=== PATIENT | male | born 1950 | race African-American/Black ===

== ENCOUNTER 2018-02-17 11:58 | Emergency (ER) | payer MEDICARE, OTHER ==
[2018-02-17 13:46] LABS: ADD MAN DIFF? NO
[2018-02-17 13:50] LABS: BASOPHILS % 0.4 % (0.0-2.0); EOSINOPHILS # 0.3 10^3/ul (0.0-0.5); EOSINOPHILS % 4.5 % (0.0-7.0); HEMOGLOBIN 11.3 g/dl (14.0-18.0); LYMPHOCYTES # 1.9 10^3/ul (0.8-2.9); LYMPHOCYTES % 26.4 % (15.0-51.0); MEAN CORPUSCULAR HEMOGLOBIN 29.4 pg (29.0-33.0); MEAN CORPUSCULAR HGB CONC 31.4 g/dl (32.0-37.0); MEAN CORPUSCULAR VOLUME 93.8 fl (82.0-101.0); MEAN PLATELET VOLUME 10.2 fl (7.4-10.4); MONOCYTE # 0.7 10^3/ul (0.3-0.9); MONOCYTES % 10.3 % (0.0-11.0); NEUTROPHIL # 4.1 10^3/ul (1.6-7.5); PLATELET COUNT 290 10^3/UL (140-415); RED BLOOD COUNT 3.84 10^6/ul (4.70-6.10); RED CELL DISTRIBUTION WIDTH 14.7 % (11.5-14.5)
[2018-02-17 13:50] LABS: WHITE BLOOD COUNT 7.1 10^3/ul (4.8-10.8)
[2018-02-17] MEDS: SOD CHLORIDE 0.9% 1,000 ML IV (13:50)
[2018-02-17 14:07] LABS: ALANINE AMINOTRANSFERASE 36 IU/L (13-69); ALBUMIN 3.2 g/dl (3.3-4.9); ALBUMIN/GLOBULIN RATIO 0.84; ALKALINE PHOSPHATASE 79 IU/L (42-121); ANION GAP 11 (8-16); ASPARTATE AMINO TRANSFERASE 55 IU/L (15-46); BILIRUBIN,INDIRECT 0.2 mg/dl (0-1.1); BILIRUBIN,TOTAL 0.2 mg/dl (0.2-1.3); BLOOD UREA NITROGEN 18 mg/dl (7-20); CALCIUM 9.4 mg/dl (8.4-10.2); CARBON DIOXIDE 30 mmol/L (21-31); CHLORIDE 105 mmol/L (97-110); CREATININE 0.69 mg/dl (0.61-1.24); GLUCOSE 133 mg/dl (70-220); POTASSIUM 3.6 mmol/L (3.5-5.1); SODIUM 142 mmol/L (135-144)
[2018-02-17 14:10] LABS: INR 0.94; PROTIME 12.7 Sec (11.9-14.9)
[2018-02-17 14:11] LABS: PARTIAL THROMBOPLASTIN TIME 28.7 Sec (23.0-35.0)
== END 2018-02-17 18:18 | disposition home or self-care (01) ==
LOC: E/R 11:58
DX: M62.838 Other muscle spasm (principal); R40.2142 Coma scale, eyes open, spontaneous, at arrival to emergency department; R40.2362 Coma scale, best motor response, obeys commands, at arrival to emergency department; R40.2252 Coma scale, best verbal response, oriented, at arrival to emergency department; I10 Essential (primary) hypertension; E11.9 Type 2 diabetes mellitus without complications; F17.210 Nicotine dependence, cigarettes, uncomplicated; R51 Headache; Z79.4 Long term (current) use of insulin
CPT/HCPCS: 36415; 70450; 80053; 82962; 85025; 85610; 85730; 93005; 99285-25

== ENCOUNTER 2018-03-29 12:56 | Inpatient (IN) | payer MEDICARE, OTHER ==
[2018-03-29] MEDS: ALBUTEROL 0.5% (NEB) 2.5 MG/0.5 ML AMP INH (13:12)
[2018-03-29] MEDS: IPRATROPIUM (NEB) 0.5 MG/2.5 ML AMP INH (13:13)
[2018-03-29 13:14] LABS: ADD MAN DIFF? NO
[2018-03-29 13:23] LABS: ABNORMAL IP MESSAGE 1; BASOPHILS % 0.3 % (0.0-2.0); EOSINOPHILS # 0.1 10^3/ul (0.0-0.5); EOSINOPHILS % 0.9 % (0.0-7.0); HEMATOCRIT 28.9 % (42.0-52.0); HEMOGLOBIN 9.5 g/dl (14.0-18.0); LYMPHOCYTES # 1.3 10^3/ul (0.8-2.9); LYMPHOCYTES % 13.7 % (15.0-51.0); MEAN CORPUSCULAR HEMOGLOBIN 28.8 pg (29.0-33.0); MEAN CORPUSCULAR HGB CONC 32.9 g/dl (32.0-37.0); MEAN CORPUSCULAR VOLUME 87.6 fl (82.0-101.0); MEAN PLATELET VOLUME 9.8 fl (7.4-10.4); MONOCYTE # 1.8 10^3/ul (0.3-0.9); NEUTROPHIL # 6.3 10^3/ul (1.6-7.5); PLATELET COUNT 419 10^3/UL (140-415); POSITIVE DIFF @See below; RED CELL DISTRIBUTION WIDTH 14.1 % (11.5-14.5)
[2018-03-29 13:23] LABS: WHITE BLOOD COUNT 9.8 10^3/ul (4.8-10.8)
[2018-03-29] MEDS: SOD CHLORIDE 0.9% 1,000 ML IV ×2 (13:24→16:53)
[2018-03-29] MEDS: ASPIRIN 81 MG TAB PO (13:24)
[2018-03-29] MEDS: METHYLPREDNISOLONE 125 MG INJ IV ×2 (13:24→21:29)
[2018-03-29] MEDS: NALOXONE 2 MG SYG IV (13:24)
[2018-03-29] MEDS ORDERED: ONDANSETRON 4 MG INJ (13:37)
[2018-03-29] MEDS: ONDANSETRON 4 MG INJ IV (13:39)
[2018-03-29 13:44] LABS: ALANINE AMINOTRANSFERASE 24 IU/L (13-69); ALBUMIN 3.5 g/dl (3.3-4.9); ALBUMIN/GLOBULIN RATIO 1.12; ALKALINE PHOSPHATASE 74 IU/L (42-121); ANION GAP 15 (5-13); ASPARTATE AMINO TRANSFERASE 31 IU/L (15-46); CALCIUM 8.9 mg/dl (8.4-10.2); CARBON DIOXIDE 32 mmol/L (21-31); CHLORIDE 89 mmol/L (97-110); CREATININE 6.41 mg/dl (0.61-1.24); Estimated GFR 11 mL/min (>60); GLUCOSE 186 mg/dl (70-220); LIPASE 65 U/L (23-300); POTASSIUM 4.3 mmol/L (3.5-5.1); SODIUM 136 mmol/L (135-144); TOTAL PROTEIN 6.6 g/dl (6.1-8.1)
[2018-03-29 13:56] LABS: B-TYPE NATRIURETIC PEPTIDE 7280 PG/ML (0-125); TROPONIN-I < 0.012 ng/ml (0.000-0.120)
[2018-03-29 13:58] LABS: BLOOD UREA NITROGEN 145 mg/dl (7-20)
[2018-03-29 14:00] LABS: ETHANOL < 10.0 mg/dl
[2018-03-29] MEDS: KETOROLAC 15 MG INJ IV (14:07)
[2018-03-29] MEDS ORDERED: NACL 0.9% 3 ML SYG IV (14:30)
[2018-03-29] MEDS ORDERED: HYDROmorphONE 0.5 MG/0.5 ML SYG IV (14:30)
[2018-03-29] MEDS ORDERED: ACETAMINOPHEN 325 MG TAB PO (14:30)
[2018-03-29 15:02] LABS: AADO2 Arterial 31.2 mmHg (7.0-24.0); Arterial Base Excess -0.3 mmol/L (-3.0-3); Arterial Blood Gas Oxygen Sat 93.3 mmHG (95.0-98.0); Arterial COHb 0.1 % (0.0-3.0); Arterial HCO3 23.3 mmol/L (22.0-26.0); Arterial MetHb 0.2 % (0.0-1.5); Arterial Total Hemglobin 10.6 g/dl (12.0-18.0); Arterial pCO2 34.4 mmhg (35-45); MODE ROOM AIR; Site Right Brachial
[2018-03-29 15:23] LABS: AMMONIA < 9 umol/l (9-30)
[2018-03-29 15:25] LABS: CREATINE KINASE < 20 IU/L (23-200)
[2018-03-29] MEDS ORDERED: LORAZEPAM 0.5 MG TAB PO (15:30)
[2018-03-29] MEDS ORDERED: GLUCOSE GEL 15 GRAM TUBE PO ×2 (16:00)
[2018-03-29] MEDS ORDERED: GLUCOSE GEL 15 GRAM TUBE BUCCAL (16:00)
[2018-03-29] MEDS ORDERED: GLUCAGON 1 MG INJ IM (16:00)
[2018-03-29] MEDS ORDERED: DEXTROSE 50% 50 ML SYRINGE IV ×2 (16:00)
[2018-03-29 18:03] LABS: ADD UMIC YES; UR ASCORBIC ACID NEGATIVE (NEGATIVE); UR BACTERIA FEW /HPF (NONE SEEN); UR BILIRUBIN (Dip) NEGATIVE (NEGATIVE); UR BLOOD (Dip) 1+ mg/dL (NEGATIVE); UR BUDDING YEAST FEW /HPF (NONE SEEN); UR CLARITY SLIGHTLY CLOUDY (CLEAR); UR COLOR YELLOW (YELLOW); UR GLUCOSE (Dip) 1+ mg/dL (NEGATIVE); UR KETONES (Dip) TRACE mg/dL (NEGATIVE); UR LEUKOCYTE ESTERASE (Dip) 2+ Leu/ul (NEGATIVE); UR NITRITE (Dip) NEGATIVE (NEGATIVE); UR RBC 3 /HPF (0-5); UR SPECIFIC GRAVITY (Dip) 1.011 (1.003-1.030); UR TOTAL PROTEIN (Dip) 1+ mg/dl (NEGATIVE); UR UROBILINOGEN (Dip) NEGATIVE (NEGATIVE); UR WBC 10 /HPF (0-5)
[2018-03-29] MEDS: INSULIN ASPART [NOVOLOG] 3 ML PEN SC ×2 (18:09→22:17)
[2018-03-29 18:37] LABS: SODIUM,URINE RANDOM 66 mmol/L (30-90)
[2018-03-29 18:37] LABS: CREATININE,URINE RANDOM 44.85 mg/dl (20-370)
[2018-03-29 18:39] LABS: AMPHETAMINE/METHAMPHETAMINE Negative (NEGATIVE); BARBITURATES Negative (NEGATIVE); BENZODIAZEPINES Negative (NEGATIVE); CANNABINOIDS Negative (NEGATIVE); COCAINE Negative (NEGATIVE)
[2018-03-29 18:42] LABS: OPIATES Positive (NEGATIVE)
[2018-03-29 19:11] LABS: ANION GAP 19 (5-13); CALCIUM 8.7 mg/dl (8.4-10.2); CARBON DIOXIDE 27 mmol/L (21-31); CHLORIDE 91 mmol/L (97-110); Estimated GFR 13 mL/min (>60); GLUCOSE 224 mg/dl (70-220); POTASSIUM 4.4 mmol/L (3.5-5.1); SODIUM 137 mmol/L (135-144)
[2018-03-29 19:26] LABS: BLOOD UREA NITROGEN 139 mg/dl (7-20)
[2018-03-29] MEDS: ALBUTEROL/IPRATROPIUM (NEB) 3 ML AMP HHN (20:29)
[2018-03-29] MEDS: BUDESONIDE (NEB) 0.5MG/2ML AMP HHN (20:29)
[2018-03-29] MEDS: TAMSULOSIN (SR) 0.4 MG CAP PO (21:30)
[2018-03-30] MEDS: SOD CHLORIDE 0.9% 1,000 ML IV ×4 (01:04→20:40)
[2018-03-30] MEDS: ACCU-CHEK XX (02:00)
[2018-03-30 06:07] LABS: ADD MAN DIFF? NO
[2018-03-30 06:19] LABS: BASOPHILS % 0.3 % (0.0-2.0); HEMATOCRIT 28.1 % (42.0-52.0); HEMOGLOBIN 9.2 g/dl (14.0-18.0); LYMPHOCYTES # 0.6 10^3/ul (0.8-2.9); LYMPHOCYTES % 5.8 % (15.0-51.0); MEAN CORPUSCULAR HEMOGLOBIN 28.3 pg (29.0-33.0); MEAN CORPUSCULAR HGB CONC 32.7 g/dl (32.0-37.0); MEAN CORPUSCULAR VOLUME 86.5 fl (82.0-101.0); MEAN PLATELET VOLUME 10.3 fl (7.4-10.4); MONOCYTE # 0.1 10^3/ul (0.3-0.9); MONOCYTES % 1.3 % (0.0-11.0); NEUTROPHIL # 9.7 10^3/ul (1.6-7.5); NEUTROPHILS % 87.9 % (39.0-77.0); PLATELET COUNT 432 10^3/UL (140-415); POSITIVE DIFF @See below; RED BLOOD COUNT 3.25 10^6/ul (4.70-6.10)
[2018-03-30 07:27] LABS: ALANINE AMINOTRANSFERASE 18 IU/L (13-69); ALBUMIN 3.3 g/dl (3.3-4.9); ALBUMIN/GLOBULIN RATIO 1.22; ALKALINE PHOSPHATASE 70 IU/L (42-121); ANION GAP 14 (5-13); ASPARTATE AMINO TRANSFERASE 25 IU/L (15-46); CALCIUM 8.8 mg/dl (8.4-10.2); CARBON DIOXIDE 27 mmol/L (21-31); CHLORIDE 96 mmol/L (97-110); CHOL/HDL RATIO 6.1 RATIO; CHOLESTEROL 153 mg/dl (100-200); CREATININE 4.12 mg/dl (0.61-1.24); Estimated GFR 18 mL/min (>60); GLUCOSE 291 mg/dl (70-220); HDL CHOLESTEROL 25 mg/dl (30-78); LDL CHOLESTEROL,CALCULATED 101 mg/dl; PHOSPHORUS 4.7 mg/dl (2.5-4.9); POTASSIUM 3.9 mmol/L (3.5-5.1); SODIUM 137 mmol/L (135-144); TRIGLYCERIDES 136 mg/dl (0-149)
[2018-03-30 07:40] LABS: BLOOD UREA NITROGEN 124 mg/dl (7-20)
[2018-03-30] MEDS: BUDESONIDE (NEB) 0.5MG/2ML AMP HHN ×2 (07:43→20:00)
[2018-03-30] MEDS: ALBUTEROL/IPRATROPIUM (NEB) 3 ML AMP HHN ×3 (07:43→20:00)
[2018-03-30] MEDS: INSULIN ASPART [NOVOLOG] 3 ML PEN SC ×5 (07:44→20:51)
[2018-03-30 07:46] LABS: THYROID STIMULATING HORMONE 0.118 MIU/L (0.465-4.680)
[2018-03-30] MEDS: SOD CHLORIDE 0.9% 100 ML (07:46)
[2018-03-30] MEDS: IOHEXOL 300MG/ML 150 ML BTL (07:47)
[2018-03-30] MEDS: CEFTRIAXONE 1 GM/50 ML (PMX) 50 ML IVPB (08:03)
[2018-03-30] MEDS: METHYLPREDNISOLONE 125 MG INJ IV (08:04)
[2018-03-30] MEDS: ASPIRIN 81 MG TAB PO (08:04)
[2018-03-30] MEDS: INSULIN GLARGINE [LANTus] (100 UNITS/ML) SYG SC (08:46)
[2018-03-30] MEDS: ATORVASTATIN 80 MG TAB PO (20:47)
[2018-03-30] MEDS: TAMSULOSIN (SR) 0.4 MG CAP PO (20:47)
[2018-03-31] MEDS: ACCU-CHEK XX (01:47)
[2018-03-31] MEDS: INSULIN ASPART [NOVOLOG] 3 ML PEN SC ×8 (02:02→21:18)
[2018-03-31] MEDS: ONDANSETRON 4 MG INJ IV ×2 (05:13→06:31)
[2018-03-31 05:58] LABS: WHITE BLOOD COUNT 16.2 10^3/ul (4.8-10.8)
[2018-03-31 05:58] LABS: ABNORMAL IP MESSAGE 1; HEMATOCRIT 19.8 % (42.0-52.0); MEAN CORPUSCULAR HEMOGLOBIN 28.3 pg (29.0-33.0); MEAN CORPUSCULAR HGB CONC 31.8 g/dl (32.0-37.0); MEAN CORPUSCULAR VOLUME 88.8 fl (82.0-101.0); MEAN PLATELET VOLUME 10.1 fl (7.4-10.4); PLATELET COUNT 409 10^3/UL (140-415); POSITIVE DIFF @See below; RED BLOOD COUNT 2.23 10^6/ul (4.70-6.10); RED CELL DISTRIBUTION WIDTH 14.1 % (11.5-14.5)
[2018-03-31] MEDS: PANTOPRAZOLE (EC) 40 MG TAB PO (06:24)
[2018-03-31] MEDS ORDERED: PANTOPRAZOLE 40 MG INJ IV (06:30)
[2018-03-31 06:34] LABS: ADD MAN DIFF? YES; HEMOGLOBIN 6.3 g/dl (14.0-18.0)
[2018-03-31 06:35] LABS: PATH REVIEW? YES
[2018-03-31] MEDS: SOD CHLORIDE 0.9% 1,000 ML IV ×3 (07:04→22:24)
[2018-03-31 07:13] LABS: ANION GAP 9 (5-13); BLOOD UREA NITROGEN 112 mg/dl (7-20); CALCIUM 8.3 mg/dl (8.4-10.2); CARBON DIOXIDE 31 mmol/L (21-31); CHLORIDE 99 mmol/L (97-110); CREATININE 2.28 mg/dl (0.61-1.24); Estimated GFR 35 mL/min (>60); GLUCOSE 275 mg/dl (70-220); MAGNESIUM 1.5 mg/dl (1.7-2.5); PHOSPHORUS 2.2 mg/dl (2.5-4.9); POTASSIUM 3.5 mmol/L (3.5-5.1); SODIUM 139 mmol/L (135-144)
[2018-03-31 07:13] LABS: FREE T4 (FREE THYROXINE) 0.94 ng/dl (0.78-2.44)
[2018-03-31] MEDS: PANTOPRAZOLE IV 80 MG in SOD CHLORIDE 0.9% 100 ML IV ×3 (08:31→17:00)
[2018-03-31] MEDS: CEFTRIAXONE 1 GM/50 ML (PMX) 50 ML IVPB (08:45)
[2018-03-31 08:48] LABS: ANISOCYTOSIS 1+ (0-0); BAND NEUTROPHILS #M 1.6 10^3/ul (0.0-0.6); BAND NEUTROPHILS % (M) 10 % (0-4); GIANT THROMBO% (M) 3 % (0-0); LYMPHOCYTES #M 1.7 10^3/ul (0.8-2.9); LYMPHOCYTES % (M) 11 % (15-51); METAMYELOCYTES #M 0.1 10^3/ul (0.0-0.0); METAMYELOCYTES %M 1 % (0-0); MICROCYTOSIS 1+ (0-0); MONOCYTE #M 1.4 10^3/ul (0.3-0.9); MONOCYTES % (M) 9 % (0-11); MYELOCYTES #M 0.1 10^3/ul (0.0-0.0); MYELOCYTES % (M) 1 % (0-0); OVALOCYTES 1+ (0-0); PLATELET ESTIMATE NORMAL; POLYCHROMASIA 1+ (0-0); SEG NEUT #M 11.3 10^3/ul (1.6-7.5); SEGMENTED NEUTROPHILS (M) % 68 % (39-77); SMUDGE%M 27 % (0-0)
[2018-03-31] MEDS: SOD CHLORIDE 0.9% 250 ML IV* (08:51)
[2018-03-31] MEDS ORDERED: OCTREOTIDE 50 MCG INJ SC (09:00)
[2018-03-31] MEDS: predniSONE 20 MG TAB PO (09:00)
[2018-03-31] MEDS: MAGNESIUM SULFATE 2 GM/50 ML 50 ML IVPB (09:00)
[2018-03-31] MEDS: INSULIN GLARGINE [LANTus] (100 UNITS/ML) SYG SC (10:22)
[2018-03-31] MEDS: OCTREOTIDE 1 MG in DEXTROSE 5% 95 ML IV (10:47)
[2018-03-31] MEDS: LIDOCAINE 1% (MPF) 5 ML VIAL SC (11:00)
[2018-03-31] MEDS: FLUCONAZOLE 200 MG (PMX) 100 ML IVPB (13:30)
[2018-03-31 15:32] LABS: CREATININE, RANDOM URINE 48 mg/dL (20-320); MICROALBUMIN 4.3 mg/dL; MICROALBUMIN/CREATININE RATIO 90 (<30)
[2018-03-31] MEDS: PROPOFOL 40 ML (16:44)
[2018-03-31 18:35] LABS: IMMEDIATE SPIN CROSSMATCH 1 3
[2018-03-31 19:51] LABS: INR 1.13; PROTIME 14.7 Sec (11.9-14.9); PT RATIO 1.1
[2018-03-31] MEDS: BUDESONIDE (NEB) 0.5MG/2ML AMP HHN (20:04)
[2018-03-31] MEDS: ALBUTEROL/IPRATROPIUM (NEB) 3 ML AMP HHN (20:05)
[2018-03-31] MEDS: ATORVASTATIN 80 MG TAB PO (20:42)
[2018-03-31] MEDS: TAMSULOSIN (SR) 0.4 MG CAP PO (20:42)
[2018-03-31] MEDS: CEFEPIME 1GM/50 ML (PMX) 50 ML IVPB (20:42)
[2018-03-31] MEDS ORDERED: CEFEPIME 1GM/50 ML (PMX) 50 ML IVPB (21:00)
[2018-03-31] MEDS: MUPIROCIN 2% 22 GM OINT TOP (21:18)
[2018-03-31 22:35] LABS: HEMATOCRIT 29.9 % (42.0-52.0)
[2018-04-01] MEDS: ACCU-CHEK XX (01:55)
[2018-04-01] MEDS: PANTOPRAZOLE IV 80 MG in SOD CHLORIDE 0.9% 100 ML IV ×2 (02:35→11:42)
[2018-04-01] MEDS: OCTREOTIDE 1 MG in DEXTROSE 5% 95 ML IV ×2 (02:35→16:33)
[2018-04-01 04:57] LABS: ABNORMAL IP MESSAGE 1; HEMATOCRIT 27.9 % (42.0-52.0); HEMOGLOBIN 9.4 g/dl (14.0-18.0); MEAN CORPUSCULAR HEMOGLOBIN 30.6 pg (29.0-33.0); MEAN CORPUSCULAR HGB CONC 33.7 g/dl (32.0-37.0); MEAN CORPUSCULAR VOLUME 90.9 fl (82.0-101.0); MEAN PLATELET VOLUME 10.2 fl (7.4-10.4); PLATELET COUNT 285 10^3/UL (140-415); POSITIVE DIFF @See below; RED BLOOD COUNT 3.07 10^6/ul (4.70-6.10); RED CELL DISTRIBUTION WIDTH 15.1 % (11.5-14.5)
[2018-04-01 05:04] LABS: ADD MAN DIFF? YES
[2018-04-01 05:25] LABS: ANION GAP 7 (5-13); BLOOD UREA NITROGEN 81 mg/dl (7-20); CARBON DIOXIDE 30 mmol/L (21-31); CHLORIDE 107 mmol/L (97-110); CREATININE 1.61 mg/dl (0.61-1.24); Estimated GFR 52 mL/min (>60); GLUCOSE 196 mg/dl (70-220); MAGNESIUM 1.5 mg/dl (1.7-2.5); POTASSIUM 3.3 mmol/L (3.5-5.1); SODIUM 144 mmol/L (135-144)
[2018-04-01] MEDS: MAGNESIUM SULFATE 3 GM in DEXTROSE 5% 100 ML IVPB (06:42)
[2018-04-01 06:52] LABS: ERYTHROCYTE SEDIMENTATION RATE 30 mm/Hr (0-20)
[2018-04-01] MEDS: INSULIN ASPART [NOVOLOG] 3 ML PEN SC ×7 (07:35→20:32)
[2018-04-01 07:54] LABS: ANISOCYTOSIS 1+ (0-0); BAND NEUTROPHILS #M 0.5 10^3/ul (0.0-0.6); BAND NEUTROPHILS % (M) 3 % (0-4); BURR CELLS 1+ (0-0); LYMPHOCYTES #M 1.5 10^3/ul (0.8-2.9); LYMPHOCYTES % (M) 8 % (15-51); METAMYELOCYTES #M 0.3 10^3/ul (0.0-0.0); METAMYELOCYTES %M 2 % (0-0); MONOCYTE #M 1.5 10^3/ul (0.3-0.9); MONOCYTES % (M) 8 % (0-11); MYELOCYTES #M 0.9 10^3/ul (0.0-0.0); MYELOCYTES % (M) 5 % (0-0); PLATELET ESTIMATE NORMAL; POIKILOCYTOSIS 1+ (0-0); POLYCHROMASIA 1+ (0-0); PROMYELOCYTES #M 0.1 10^3/ul (0-0); PROMYELOCYTES % (M) 1 % (0-0); SEGMENTED NEUTROPHILS (M) % 73 % (39-77); SMUDGE%M 16 % (0-0)
[2018-04-01] MEDS ORDERED: POTASSIUM CHLORIDE 100 ML IVPB (08:00)
[2018-04-01] MEDS: ALBUTEROL/IPRATROPIUM (NEB) 3 ML AMP HHN ×3 (08:00→20:00)
[2018-04-01] MEDS ORDERED: MAGNESIUM SULFATE 2 GM/50 ML 50 ML IVPB (08:00)
[2018-04-01] MEDS: INSULIN GLARGINE [LANTus] (100 UNITS/ML) SYG SC (08:00)
[2018-04-01] MEDS: BUDESONIDE (NEB) 0.5MG/2ML AMP HHN ×2 (08:39→20:00)
[2018-04-01] MEDS: MUPIROCIN 2% 22 GM OINT TOP ×2 (09:00→20:26)
[2018-04-01] MEDS: predniSONE 20 MG TAB PO (09:00)
[2018-04-01] MEDS: POTASSIUM CHLORIDE 100 ML IVPB (10:58)
[2018-04-01 12:23] LABS: HEMATOCRIT 27.9 % (42.0-52.0); HEMOGLOBIN 9.3 g/dl (14.0-18.0)
[2018-04-01] MEDS: SUCRALFATE (100 MG/ML) 10ML CUP PO ×3 (14:44→20:26)
[2018-04-01] MEDS: DOXYCYCLINE 100 MG in SOD CHLORIDE 0.9% 250 ML IVPB ×2 (14:45→22:12)
[2018-04-01] MEDS: SOD CHLORIDE 0.9% 1,000 ML IV (16:19)
[2018-04-01] MEDS: PANTOPRAZOLE 40 MG INJ IV (17:09)
[2018-04-01 18:41] LABS: HEMATOCRIT 28.3 % (42.0-52.0); HEMOGLOBIN 9.6 g/dl (14.0-18.0)
[2018-04-01 20:03] LABS: RAPID PLASMA REAGIN NONREACTIVE (NR)
[2018-04-01] MEDS: TAMSULOSIN (SR) 0.4 MG CAP PO (20:26)
[2018-04-01] MEDS: FLUCONAZOLE 100 MG TAB PO (20:26)
[2018-04-01] MEDS: ATORVASTATIN 80 MG TAB PO (20:26)
[2018-04-02 00:55] LABS: HEMATOCRIT 26.6 % (42.0-52.0); HEMOGLOBIN 8.9 g/dl (14.0-18.0)
[2018-04-02] MEDS: ACCU-CHEK XX (02:40)
[2018-04-02] MEDS: PANTOPRAZOLE 40 MG INJ IV ×2 (05:37→17:21)
[2018-04-02 06:08] LABS: ADD MAN DIFF? NO
[2018-04-02 06:14] LABS: WHITE BLOOD COUNT 21.3 10^3/ul (4.8-10.8)
[2018-04-02 06:14] LABS: ABNORMAL IP MESSAGE 1; BASOPHIL # 0.1 10^3/ul (0.0-0.1); BASOPHILS % 0.2 % (0.0-2.0); EOSINOPHILS % 0.1 % (0.0-7.0); HEMATOCRIT 26.3 % (42.0-52.0); HEMOGLOBIN 8.8 g/dl (14.0-18.0); LYMPHOCYTES # 1.9 10^3/ul (0.8-2.9); LYMPHOCYTES % 9.1 % (15.0-51.0); MEAN CORPUSCULAR HEMOGLOBIN 30.1 pg (29.0-33.0); MEAN CORPUSCULAR HGB CONC 33.5 g/dl (32.0-37.0); MEAN CORPUSCULAR VOLUME 90.1 fl (82.0-101.0); MEAN PLATELET VOLUME 10.3 fl (7.4-10.4); MONOCYTE # 1.2 10^3/ul (0.3-0.9); MONOCYTES % 5.4 % (0.0-11.0); NEUTROPHIL # 16.7 10^3/ul (1.6-7.5); NEUTROPHILS % 78.4 % (39.0-77.0); PLATELET COUNT 256 10^3/UL (140-415); POSITIVE DIFF @See below; RED BLOOD COUNT 2.92 10^6/ul (4.70-6.10); RED CELL DISTRIBUTION WIDTH 15.1 % (11.5-14.5)
[2018-04-02] MEDS: HYDROCODONE/APAP (5/325) TAB PO ×2 (06:46→17:51)
[2018-04-02 06:57] LABS: ANION GAP 9 (5-13); BLOOD UREA NITROGEN 39 mg/dl (7-20); CALCIUM 7.6 mg/dl (8.4-10.2); CARBON DIOXIDE 27 mmol/L (21-31); CHLORIDE 105 mmol/L (97-110); CREATININE 0.91 mg/dl (0.61-1.24); Estimated GFR > 60 mL/min (>60); GLUCOSE 175 mg/dl (70-220); MAGNESIUM 1.1 mg/dl (1.7-2.5); PHOSPHORUS 2.3 mg/dl (2.5-4.9); POTASSIUM 3.4 mmol/L (3.5-5.1); SODIUM 141 mmol/L (135-144)
[2018-04-02] MEDS: ALBUTEROL/IPRATROPIUM (NEB) 3 ML AMP HHN ×3 (08:00→20:00)
[2018-04-02] MEDS: INSULIN ASPART [NOVOLOG] 3 ML PEN SC ×7 (08:07→21:18)
[2018-04-02] MEDS: SUCRALFATE (100 MG/ML) 10ML CUP PO ×4 (08:53→20:50)
[2018-04-02] MEDS: MUPIROCIN 2% 22 GM OINT TOP ×2 (08:53→20:51)
[2018-04-02] MEDS: predniSONE 20 MG TAB PO (08:53)
[2018-04-02] MEDS: MAGNESIUM SULFATE 2 GM/50 ML 50 ML IVPB (08:53)
[2018-04-02] MEDS: DOXYCYCLINE 100 MG in SOD CHLORIDE 0.9% 250 ML IVPB ×2 (08:57→20:50)
[2018-04-02] MEDS: INSULIN GLARGINE [LANTus] (100 UNITS/ML) SYG SC (08:58)
[2018-04-02] MEDS: BUDESONIDE (NEB) 0.5MG/2ML AMP HHN ×2 (09:00→20:00)
[2018-04-02] MEDS: POTASSIUM PHOSPHATE 40 MEQ in SOD CHLORIDE 0.9% 250 ML IVPB (11:16)
[2018-04-02] MEDS ORDERED: hydrALAzine 20 MG INJ IV (12:00)
[2018-04-02] MEDS: OCTREOTIDE 1 MG in DEXTROSE 5% 95 ML IV (12:28)
[2018-04-02 14:55] LABS: HEMATOCRIT 26.8 % (42.0-52.0)
[2018-04-02] MEDS: ATORVASTATIN 80 MG TAB PO (20:50)
[2018-04-02] MEDS: TAMSULOSIN (SR) 0.4 MG CAP PO (20:50)
[2018-04-03] MEDS: ACCU-CHEK XX (02:23)
[2018-04-03] MEDS: PANTOPRAZOLE 40 MG INJ IV ×2 (05:05→17:23)
[2018-04-03] MEDS: HYDROCODONE/APAP (5/325) TAB PO (05:06)
[2018-04-03 06:34] LABS: ABNORMAL IP MESSAGE 1; HEMATOCRIT 26.8 % (42.0-52.0); MEAN CORPUSCULAR HEMOGLOBIN 30.4 pg (29.0-33.0); MEAN CORPUSCULAR HGB CONC 33.6 g/dl (32.0-37.0); MEAN CORPUSCULAR VOLUME 90.5 fl (82.0-101.0); PLATELET COUNT 291 10^3/UL (140-415); POSITIVE DIFF @See below; RED BLOOD COUNT 2.96 10^6/ul (4.70-6.10); RED CELL DISTRIBUTION WIDTH 14.9 % (11.5-14.5)
[2018-04-03 06:34] LABS: WHITE BLOOD COUNT 26.5 10^3/ul (4.8-10.8)
[2018-04-03 06:46] LABS: ADD MAN DIFF? YES
[2018-04-03 06:58] LABS: ANION GAP 9 (5-13); BLOOD UREA NITROGEN 22 mg/dl (7-20); CALCIUM 7.6 mg/dl (8.4-10.2); CARBON DIOXIDE 27 mmol/L (21-31); CHLORIDE 102 mmol/L (97-110); CREATININE 0.78 mg/dl (0.61-1.24); Estimated GFR > 60 mL/min (>60); GLUCOSE 185 mg/dl (70-220); PHOSPHORUS 1.8 mg/dl (2.5-4.9); POTASSIUM 3.4 mmol/L (3.5-5.1); SODIUM 138 mmol/L (135-144)
[2018-04-03] MEDS: ALBUTEROL/IPRATROPIUM (NEB) 3 ML AMP HHN ×4 (07:55→20:24)
[2018-04-03] MEDS: BUDESONIDE (NEB) 0.5MG/2ML AMP HHN ×2 (07:58→20:24)
[2018-04-03] MEDS: DOXYCYCLINE 100 MG in SOD CHLORIDE 0.9% 250 ML IVPB ×2 (09:41→21:56)
[2018-04-03] MEDS: POTASSIUM PHOSPHATE 30 MM in SOD CHLORIDE 0.9% 250 ML IVPB (09:42)
[2018-04-03] MEDS: MAGNESIUM SULFATE 4 GM/100 ML 100 ML IVPB (09:42)
[2018-04-03] MEDS: MUPIROCIN 2% 22 GM OINT TOP ×2 (09:42→21:53)
[2018-04-03] MEDS: SUCRALFATE (100 MG/ML) 10ML CUP PO ×4 (09:42→21:52)
[2018-04-03] MEDS: predniSONE 20 MG TAB PO (09:43)
[2018-04-03 09:46] LABS: ANISOCYTOSIS 1+ (0-0); EOSINOPHILS % (M) 1 % (0-7); LYMPHOCYTES #M 3.9 10^3/ul (0.8-2.9); LYMPHOCYTES % (M) 15 % (15-51); METAMYELOCYTES #M 0.2 10^3/ul (0.0-0.0); METAMYELOCYTES %M 1 % (0-0); MONOCYTES % (M) 4 % (0-11); PLATELET ESTIMATE NORMAL; POIKILOCYTOSIS 1+ (0-0); POLYCHROMASIA 1+ (0-0); SEGMENTED NEUTROPHILS (M) % 79 % (39-77); SMUDGE%M 6 % (0-0)
[2018-04-03] MEDS: INSULIN GLARGINE [LANTus] (100 UNITS/ML) SYG SC (09:47)
[2018-04-03] MEDS: INSULIN ASPART [NOVOLOG] 3 ML PEN SC ×8 (09:48→23:25)
[2018-04-03] MEDS: CLOPIDOGREL 75 MG TAB PO (12:36)
[2018-04-03] MEDS: VANCOMYCIN HCL 250 MG/5ML POSYG PO (17:24)
[2018-04-03] MEDS: ATORVASTATIN 80 MG TAB PO (21:52)
[2018-04-03] MEDS: TAMSULOSIN (SR) 0.4 MG CAP PO (21:52)
[2018-04-04] MEDS: VANCOMYCIN HCL 250 MG/5ML POSYG PO ×4 (00:47→17:05)
[2018-04-04] MEDS: ACCU-CHEK XX (02:41)
[2018-04-04 06:23] LABS: ADD MAN DIFF? NO
[2018-04-04] MEDS: PANTOPRAZOLE 40 MG INJ IV ×2 (06:26→17:04)
[2018-04-04 06:29] LABS: ABNORMAL IP MESSAGE 1; BASOPHIL # 0.1 10^3/ul (0.0-0.1); BASOPHILS % 0.2 % (0.0-2.0); EOSINOPHILS # 0.1 10^3/ul (0.0-0.5); EOSINOPHILS % 0.4 % (0.0-7.0); HEMATOCRIT 27.3 % (42.0-52.0); HEMOGLOBIN 9.2 g/dl (14.0-18.0); LYMPHOCYTES # 2.9 10^3/ul (0.8-2.9); LYMPHOCYTES % 11.2 % (15.0-51.0); MEAN CORPUSCULAR HEMOGLOBIN 30.5 pg (29.0-33.0); MEAN CORPUSCULAR HGB CONC 33.7 g/dl (32.0-37.0); MEAN CORPUSCULAR VOLUME 90.4 fl (82.0-101.0); MEAN PLATELET VOLUME 9.9 fl (7.4-10.4); MONOCYTE # 1.5 10^3/ul (0.3-0.9); MONOCYTES % 5.8 % (0.0-11.0); NEUTROPHIL # 20.4 10^3/ul (1.6-7.5); NEUTROPHILS % 79.3 % (39.0-77.0); PLATELET COUNT 332 10^3/UL (140-415); POSITIVE DIFF @See below; RED BLOOD COUNT 3.02 10^6/ul (4.70-6.10); RED CELL DISTRIBUTION WIDTH 14.8 % (11.5-14.5)
[2018-04-04 06:29] LABS: WHITE BLOOD COUNT 25.7 10^3/ul (4.8-10.8)
[2018-04-04 07:11] LABS: ANION GAP 8 (5-13); BLOOD UREA NITROGEN 20 mg/dl (7-20); CALCIUM 7.7 mg/dl (8.4-10.2); CARBON DIOXIDE 26 mmol/L (21-31); CHLORIDE 104 mmol/L (97-110); CREATININE 0.62 mg/dl (0.61-1.24); Estimated GFR > 60 mL/min (>60); GLUCOSE 140 mg/dl (70-220); MAGNESIUM 1.3 mg/dl (1.7-2.5); PHOSPHORUS 2.2 mg/dl (2.5-4.9); POTASSIUM 3.8 mmol/L (3.5-5.1); SODIUM 138 mmol/L (135-144)
[2018-04-04] MEDS: DOXYCYCLINE 100 MG in SOD CHLORIDE 0.9% 250 ML IVPB ×2 (07:47→20:56)
[2018-04-04] MEDS: SUCRALFATE (100 MG/ML) 10ML CUP PO ×4 (07:47→20:56)
[2018-04-04] MEDS: CLOPIDOGREL 75 MG TAB PO (07:47)
[2018-04-04] MEDS: MUPIROCIN 2% 22 GM OINT TOP ×2 (07:48→20:55)
[2018-04-04] MEDS: ALBUTEROL/IPRATROPIUM (NEB) 3 ML AMP HHN ×4 (08:00→20:05)
[2018-04-04] MEDS: predniSONE 20 MG TAB PO (08:11)
[2018-04-04] MEDS: BUDESONIDE (NEB) 0.5MG/2ML AMP HHN ×3 (08:16→20:05)
[2018-04-04] MEDS: INSULIN ASPART [NOVOLOG] 3 ML PEN SC ×8 (08:23→20:59)
[2018-04-04] MEDS: INSULIN GLARGINE [LANTus] (100 UNITS/ML) SYG SC (08:23)
[2018-04-04] MEDS: MAGNESIUM SULFATE 4 GM/100 ML 100 ML IVPB (08:57)
[2018-04-04] MEDS: CALCIUM/VITAMIN D (500/200) TAB PO (08:57)
[2018-04-04] MEDS: POTASSIUM PHOSPHATE 30 MM in SOD CHLORIDE 0.9% 250 ML IVPB (10:42)
[2018-04-04] MEDS: TAMSULOSIN (SR) 0.4 MG CAP PO (20:56)
[2018-04-04] MEDS: ATORVASTATIN 80 MG TAB PO (20:56)
[2018-04-05] MEDS: VANCOMYCIN HCL 250 MG/5ML POSYG PO ×3 (00:17→12:03)
[2018-04-05] MEDS: ACCU-CHEK XX (03:53)
[2018-04-05] MEDS: PANTOPRAZOLE 40 MG INJ IV ×2 (05:43→18:29)
[2018-04-05 06:16] LABS: ADD MAN DIFF? NO
[2018-04-05 06:18] LABS: WHITE BLOOD COUNT 20.1 10^3/ul (4.8-10.8)
[2018-04-05 06:18] LABS: BASOPHILS % 0.2 % (0.0-2.0); EOSINOPHILS # 0.2 10^3/ul (0.0-0.5); HEMATOCRIT 25.9 % (42.0-52.0); HEMOGLOBIN 8.8 g/dl (14.0-18.0); LYMPHOCYTES # 2.9 10^3/ul (0.8-2.9); LYMPHOCYTES % 14.3 % (15.0-51.0); MEAN CORPUSCULAR HEMOGLOBIN 30.9 pg (29.0-33.0); MEAN CORPUSCULAR VOLUME 90.9 fl (82.0-101.0); MEAN PLATELET VOLUME 9.8 fl (7.4-10.4); MONOCYTE # 1.3 10^3/ul (0.3-0.9); MONOCYTES % 6.4 % (0.0-11.0); NEUTROPHIL # 15.1 10^3/ul (1.6-7.5); NEUTROPHILS % 75.2 % (39.0-77.0); PLATELET COUNT 332 10^3/UL (140-415); RED BLOOD COUNT 2.85 10^6/ul (4.70-6.10); RED CELL DISTRIBUTION WIDTH 14.9 % (11.5-14.5)
[2018-04-05 06:48] LABS: ANION GAP 8 (5-13); BLOOD UREA NITROGEN 15 mg/dl (7-20); CALCIUM 7.8 mg/dl (8.4-10.2); CARBON DIOXIDE 25 mmol/L (21-31); CHLORIDE 104 mmol/L (97-110); CREATININE 0.59 mg/dl (0.61-1.24); Estimated GFR > 60 mL/min (>60); GLUCOSE 172 mg/dl (70-220); MAGNESIUM 1.3 mg/dl (1.7-2.5); PHOSPHORUS 2.1 mg/dl (2.5-4.9); POTASSIUM 3.9 mmol/L (3.5-5.1); SODIUM 137 mmol/L (135-144)
[2018-04-05] MEDS: CLOPIDOGREL 75 MG TAB PO (08:19)
[2018-04-05] MEDS: CALCIUM/VITAMIN D (500/200) TAB PO (08:19)
[2018-04-05] MEDS: DOXYCYCLINE 100 MG in SOD CHLORIDE 0.9% 250 ML IVPB (08:19)
[2018-04-05] MEDS: INSULIN GLARGINE [LANTus] (100 UNITS/ML) SYG SC (08:22)
[2018-04-05] MEDS: INSULIN ASPART [NOVOLOG] 3 ML PEN SC ×7 (08:24→21:00)
[2018-04-05] MEDS: MUPIROCIN 2% 22 GM OINT TOP ×2 (08:25→21:27)
[2018-04-05] MEDS: ALBUTEROL/IPRATROPIUM (NEB) 3 ML AMP HHN ×3 (08:33→21:48)
[2018-04-05] MEDS: BUDESONIDE (NEB) 0.5MG/2ML AMP HHN ×3 (09:00→21:36)
[2018-04-05] MEDS: MAGNESIUM SULFATE 2 GM/50 ML 50 ML IVPB (09:50)
[2018-04-05] MEDS: NEUTRA-PHOS 250 MG PACKET PO ×2 (09:50→21:27)
[2018-04-05] MEDS: SUCRALFATE (100 MG/ML) 10ML CUP PO ×4 (11:52→21:26)
[2018-04-05] MEDS: LACTOBACILLUS RHAMNOSUS CAP PO ×2 (11:53→17:54)
[2018-04-05] MEDS: HYDROCODONE/APAP (5/325) TAB PO ×2 (15:20→22:14)
[2018-04-05] MEDS: TAMSULOSIN (SR) 0.4 MG CAP PO (21:27)
[2018-04-05] MEDS: ATORVASTATIN 80 MG TAB PO (21:27)
[2018-04-06] MEDS: ACCU-CHEK XX (02:00)
[2018-04-06] MEDS: PANTOPRAZOLE 40 MG INJ IV ×2 (05:49→17:49)
[2018-04-06 06:16] LABS: ADD MAN DIFF? NO
[2018-04-06 06:19] LABS: BASOPHILS % 0.2 % (0.0-2.0); EOSINOPHILS # 0.3 10^3/ul (0.0-0.5); EOSINOPHILS % 1.6 % (0.0-7.0); HEMATOCRIT 25.5 % (42.0-52.0); HEMOGLOBIN 8.6 g/dl (14.0-18.0); LYMPHOCYTES # 3.2 10^3/ul (0.8-2.9); LYMPHOCYTES % 20.3 % (15.0-51.0); MEAN CORPUSCULAR HEMOGLOBIN 30.9 pg (29.0-33.0); MEAN CORPUSCULAR HGB CONC 33.7 g/dl (32.0-37.0); MEAN CORPUSCULAR VOLUME 91.7 fl (82.0-101.0); MEAN PLATELET VOLUME 9.7 fl (7.4-10.4); MONOCYTE # 1.1 10^3/ul (0.3-0.9); NEUTROPHIL # 10.8 10^3/ul (1.6-7.5); NEUTROPHILS % 68.9 % (39.0-77.0); PLATELET COUNT 389 10^3/UL (140-415); RED BLOOD COUNT 2.78 10^6/ul (4.70-6.10); RED CELL DISTRIBUTION WIDTH 15.1 % (11.5-14.5)
[2018-04-06 06:19] LABS: WHITE BLOOD COUNT 15.6 10^3/ul (4.8-10.8)
[2018-04-06 07:02] LABS: ANION GAP 6 (5-13); BLOOD UREA NITROGEN 17 mg/dl (7-20); CARBON DIOXIDE 25 mmol/L (21-31); CHLORIDE 105 mmol/L (97-110); CREATININE 0.53 mg/dl (0.61-1.24); Estimated GFR > 60 mL/min (>60); GLUCOSE 152 mg/dl (70-220); MAGNESIUM 1.1 mg/dl (1.7-2.5); PHOSPHORUS 2.8 mg/dl (2.5-4.9); POTASSIUM 4.3 mmol/L (3.5-5.1); SODIUM 136 mmol/L (135-144)
[2018-04-06] MEDS: ALBUTEROL/IPRATROPIUM (NEB) 3 ML AMP HHN ×3 (07:43→21:29)
[2018-04-06] MEDS: BUDESONIDE (NEB) 0.5MG/2ML AMP HHN ×2 (07:43→12:40)
[2018-04-06] MEDS: LACTOBACILLUS RHAMNOSUS CAP PO ×3 (08:43→17:49)
[2018-04-06] MEDS: SUCRALFATE (100 MG/ML) 10ML CUP PO ×4 (08:44→20:56)
[2018-04-06] MEDS: NEUTRA-PHOS 250 MG PACKET PO ×2 (08:44→20:55)
[2018-04-06] MEDS: CALCIUM/VITAMIN D (500/200) TAB PO (08:44)
[2018-04-06] MEDS: CLOPIDOGREL 75 MG TAB PO (08:44)
[2018-04-06] MEDS: MUPIROCIN 2% 22 GM OINT TOP ×2 (08:44→20:55)
[2018-04-06] MEDS: INSULIN ASPART [NOVOLOG] 3 ML PEN SC ×7 (08:46→20:55)
[2018-04-06] MEDS: INSULIN GLARGINE [LANTus] (100 UNITS/ML) SYG SC (08:47)
[2018-04-06] MEDS: MAGNESIUM SULFATE 2 GM/50 ML 50 ML IVPB (11:12)
[2018-04-06] MEDS: MAGNESIUM OXIDE 400 MG TAB PO (11:12)
[2018-04-06] MEDS ORDERED: ALBUTEROL 0.083% (NEB) 2.5 MG/3 ML AMP HHN (13:00)
[2018-04-06] MEDS: HYDROCODONE/APAP (5/325) TAB PO ×2 (16:00→22:45)
[2018-04-06] MEDS: TAMSULOSIN (SR) 0.4 MG CAP PO (20:56)
[2018-04-06] MEDS: ATORVASTATIN 80 MG TAB PO (20:56)
[2018-04-07] MEDS: ACCU-CHEK XX ×2 (01:12→21:31)
[2018-04-07] MEDS: PANTOPRAZOLE 40 MG INJ IV ×2 (05:39→17:39)
[2018-04-07 05:51] LABS: ANION GAP 6 (5-13); BLOOD UREA NITROGEN 21 mg/dl (7-20); CALCIUM 8.2 mg/dl (8.4-10.2); CARBON DIOXIDE 26 mmol/L (21-31); CHLORIDE 105 mmol/L (97-110); CREATININE 0.57 mg/dl (0.61-1.24); Estimated GFR > 60 mL/min (>60); GLUCOSE 138 mg/dl (70-220); MAGNESIUM 1.3 mg/dl (1.7-2.5); PHOSPHORUS 3.2 mg/dl (2.5-4.9); SODIUM 137 mmol/L (135-144)
[2018-04-07] MEDS: HYDROCODONE/APAP (5/325) TAB PO (07:47)
[2018-04-07] MEDS: LACTOBACILLUS RHAMNOSUS CAP PO ×3 (07:48→17:39)
[2018-04-07] MEDS: MAGNESIUM SULFATE 4 GM/100 ML 100 ML IVPB (07:54)
[2018-04-07] MEDS: INSULIN GLARGINE [LANTus] (100 UNITS/ML) SYG SC (08:25)
[2018-04-07] MEDS: INSULIN ASPART [NOVOLOG] 3 ML PEN SC ×7 (08:26→21:00)
[2018-04-07] MEDS: SUCRALFATE (100 MG/ML) 10ML CUP PO ×4 (08:30→21:00)
[2018-04-07] MEDS: NEUTRA-PHOS 250 MG PACKET PO ×2 (08:30→21:00)
[2018-04-07] MEDS: MAGNESIUM OXIDE 400 MG TAB PO (08:30)
[2018-04-07] MEDS: CALCIUM/VITAMIN D (500/200) TAB PO (08:30)
[2018-04-07] MEDS: CLOPIDOGREL 75 MG TAB PO (08:31)
[2018-04-07] MEDS: MUPIROCIN 2% 22 GM OINT TOP ×2 (08:31→21:31)
[2018-04-07] MEDS: ALBUTEROL/IPRATROPIUM (NEB) 3 ML AMP HHN ×3 (08:55→19:48)
[2018-04-07] MEDS: BUDESONIDE (NEB) 0.5MG/2ML AMP HHN ×2 (09:00→19:48)
[2018-04-07 12:19] LABS: MAGNESIUM 7.7 mg/dl (1.7-2.5)
[2018-04-07] MEDS ORDERED: PANTOPRAZOLE IV 80 MG in SOD CHLORIDE 0.9% 100 ML IV (18:04)
[2018-04-07 18:17] LABS: ADD MAN DIFF? NO
[2018-04-07 18:21] LABS: BASOPHILS % 0.2 % (0.0-2.0); EOSINOPHILS # 0.2 10^3/ul (0.0-0.5); EOSINOPHILS % 1.1 % (0.0-7.0); HEMATOCRIT 23.1 % (42.0-52.0); HEMOGLOBIN 7.8 g/dl (14.0-18.0); LYMPHOCYTES # 2.9 10^3/ul (0.8-2.9); LYMPHOCYTES % 19.6 % (15.0-51.0); MEAN CORPUSCULAR HEMOGLOBIN 31.1 pg (29.0-33.0); MEAN CORPUSCULAR HGB CONC 33.8 g/dl (32.0-37.0); MEAN PLATELET VOLUME 9.7 fl (7.4-10.4); MONOCYTE # 1.3 10^3/ul (0.3-0.9); MONOCYTES % 9.1 % (0.0-11.0); NEUTROPHIL # 9.9 10^3/ul (1.6-7.5); NEUTROPHILS % 68.3 % (39.0-77.0); PLATELET COUNT 427 10^3/UL (140-415); RED BLOOD COUNT 2.51 10^6/ul (4.70-6.10); RED CELL DISTRIBUTION WIDTH 15.3 % (11.5-14.5)
[2018-04-07 18:21] LABS: WHITE BLOOD COUNT 14.5 10^3/ul (4.8-10.8)
[2018-04-07] MEDS: SOD CHLORIDE 0.9% 1,000 ML IV (18:25)
[2018-04-07 18:40] LABS: ANION GAP 10 (5-13); BLOOD UREA NITROGEN 22 mg/dl (7-20); CALCIUM 7.9 mg/dl (8.4-10.2); CARBON DIOXIDE 22 mmol/L (21-31); CHLORIDE 106 mmol/L (97-110); Estimated GFR > 60 mL/min (>60); GLUCOSE 128 mg/dl (70-220); POTASSIUM 3.5 mmol/L (3.5-5.1); SODIUM 138 mmol/L (135-144)
[2018-04-07] MEDS: PANTOPRAZOLE IV 80 MG in SOD CHLORIDE 0.9% 100 ML IV (20:05)
[2018-04-07] MEDS: ATORVASTATIN 80 MG TAB PO (21:00)
[2018-04-07] MEDS: TAMSULOSIN (SR) 0.4 MG CAP PO (21:00)
[2018-04-07] MEDS: DEXTROSE 5%-0.45% NACL 1,000 ML IV (21:31)
[2018-04-08] MEDS: morphine 2 MG INJ IV ×2 (00:37→20:18)
[2018-04-08] MEDS: INSULIN ASPART [NOVOLOG] 3 ML PEN SC ×9 (00:43→20:32)
[2018-04-08] MEDS: ACETAMINOPHEN 650 MG SUPP PR (03:20)
[2018-04-08 03:36] LABS: ADD MAN DIFF? NO
[2018-04-08 03:58] LABS: LACTIC ACID 0.6 mmol/L (0.5-2.0)
[2018-04-08 04:00] LABS: ANION GAP 6 (5-13); BLOOD UREA NITROGEN 21 mg/dl (7-20); CALCIUM 7.7 mg/dl (8.4-10.2); CARBON DIOXIDE 24 mmol/L (21-31); CHLORIDE 108 mmol/L (97-110); CREATININE 0.51 mg/dl (0.61-1.24); Estimated GFR > 60 mL/min (>60); GLUCOSE 135 mg/dl (70-220); MAGNESIUM 1.5 mg/dl (1.7-2.5); PHOSPHORUS 2.8 mg/dl (2.5-4.9); POTASSIUM 3.8 mmol/L (3.5-5.1); SODIUM 138 mmol/L (135-144)
[2018-04-08 04:03] LABS: ABNORMAL IP MESSAGE 1; BASOPHILS % 0.3 % (0.0-2.0); EOSINOPHILS # 0.1 10^3/ul (0.0-0.5); EOSINOPHILS % 1.2 % (0.0-7.0); HEMATOCRIT 18.3 % (42.0-52.0); LYMPHOCYTES # 2.8 10^3/ul (0.8-2.9); LYMPHOCYTES % 24.2 % (15.0-51.0); MEAN CORPUSCULAR HEMOGLOBIN 30.3 pg (29.0-33.0); MEAN CORPUSCULAR HGB CONC 32.8 g/dl (32.0-37.0); MEAN CORPUSCULAR VOLUME 92.4 fl (82.0-101.0); MEAN PLATELET VOLUME 10.1 fl (7.4-10.4); MONOCYTES % 8.8 % (0.0-11.0); NEUTROPHIL # 7.4 10^3/ul (1.6-7.5); PLATELET COUNT 360 10^3/UL (140-415); POSITIVE DIFF @See below; RED BLOOD COUNT 1.98 10^6/ul (4.70-6.10); RED CELL DISTRIBUTION WIDTH 15.2 % (11.5-14.5)
[2018-04-08 04:03] LABS: WHITE BLOOD COUNT 11.6 10^3/ul (4.8-10.8)
[2018-04-08] MEDS: LACTOBACILLUS RHAMNOSUS CAP PO ×3 (07:35→17:24)
[2018-04-08] MEDS: INSULIN GLARGINE [LANTus] (100 UNITS/ML) SYG SC (08:20)
[2018-04-08] MEDS: NEUTRA-PHOS 250 MG PACKET PO ×2 (08:51→20:02)
[2018-04-08] MEDS: MAGNESIUM OXIDE 400 MG TAB PO (08:51)
[2018-04-08] MEDS: SUCRALFATE (100 MG/ML) 10ML CUP PO ×4 (08:51→20:01)
[2018-04-08] MEDS: CALCIUM/VITAMIN D (500/200) TAB PO (08:51)
[2018-04-08] MEDS: ALBUTEROL/IPRATROPIUM (NEB) 3 ML AMP HHN ×3 (08:51→21:19)
[2018-04-08] MEDS: BUDESONIDE (NEB) 0.5MG/2ML AMP HHN ×2 (08:57→21:19)
[2018-04-08] MEDS: MUPIROCIN 2% 22 GM OINT TOP ×2 (09:19→20:19)
[2018-04-08 11:20] LABS: ADD UMIC YES; UR ASCORBIC ACID NEGATIVE (NEGATIVE); UR BILIRUBIN (Dip) NEGATIVE (NEGATIVE); UR BLOOD (Dip) NEGATIVE (NEGATIVE); UR CLARITY CLEAR (CLEAR); UR COLOR YELLOW (YELLOW); UR GLUCOSE (Dip) 2+ mg/dL (NEGATIVE); UR KETONES (Dip) NEGATIVE (NEGATIVE); UR LEUKOCYTE ESTERASE (Dip) 1+ Leu/ul (NEGATIVE); UR NITRITE (Dip) NEGATIVE (NEGATIVE); UR RBC 3 /HPF (0-5); UR SPECIFIC GRAVITY (Dip) 1.014 (1.003-1.030); UR TOTAL PROTEIN (Dip) NEGATIVE (NEGATIVE); UR UROBILINOGEN (Dip) NEGATIVE (NEGATIVE); UR WBC 37 /HPF (0-5)
[2018-04-08 11:22] LABS: IMMEDIATE SPIN CROSSMATCH 1 2
[2018-04-08] MEDS: DEXTROSE 5%-0.45% NACL 1,000 ML IV (11:22)
[2018-04-08 11:30] LABS: SODIUM,URINE RANDOM 59 mmol/L (30-90)
[2018-04-08 11:30] LABS: CREATININE,URINE RANDOM 70.45 mg/dl (20-370)
[2018-04-08] MEDS: MAGNESIUM SULFATE 2 GM/50 ML 50 ML IVPB (14:22)
[2018-04-08 15:42] LABS: ADD MAN DIFF? NO
[2018-04-08 15:44] LABS: BASOPHILS % 0.4 % (0.0-2.0); EOSINOPHILS # 0.1 10^3/ul (0.0-0.5); EOSINOPHILS % 1.6 % (0.0-7.0); HEMATOCRIT 25.5 % (42.0-52.0); HEMOGLOBIN 8.6 g/dl (14.0-18.0); LYMPHOCYTES # 2.1 10^3/ul (0.8-2.9); LYMPHOCYTES % 25.4 % (15.0-51.0); MEAN CORPUSCULAR HEMOGLOBIN 30.9 pg (29.0-33.0); MEAN CORPUSCULAR HGB CONC 33.7 g/dl (32.0-37.0); MEAN CORPUSCULAR VOLUME 91.7 fl (82.0-101.0); MEAN PLATELET VOLUME 9.6 fl (7.4-10.4); MONOCYTE # 1.1 10^3/ul (0.3-0.9); MONOCYTES % 12.6 % (0.0-11.0); NEUTROPHIL # 4.9 10^3/ul (1.6-7.5); NEUTROPHILS % 58.2 % (39.0-77.0); PLATELET COUNT 350 10^3/UL (140-415); RED BLOOD COUNT 2.78 10^6/ul (4.70-6.10); RED CELL DISTRIBUTION WIDTH 14.6 % (11.5-14.5)
[2018-04-08 15:44] LABS: WHITE BLOOD COUNT 8.3 10^3/ul (4.8-10.8)
[2018-04-08] MEDS: TAMSULOSIN (SR) 0.4 MG CAP PO (20:02)
[2018-04-08] MEDS: ATORVASTATIN 80 MG TAB PO (20:02)
[2018-04-08 22:39] LABS: HEMATOCRIT 24.9 % (42.0-52.0); HEMOGLOBIN 8.2 g/dl (14.0-18.0)
[2018-04-09 00:30] LABS: HEMATOCRIT 24.2 % (42.0-52.0); HEMOGLOBIN 7.9 g/dl (14.0-18.0)
[2018-04-09] MEDS: INSULIN ASPART [NOVOLOG] 3 ML PEN SC ×9 (00:58→20:39)
[2018-04-09] MEDS: ACCU-CHEK XX (02:00)
[2018-04-09] MEDS: morphine 2 MG INJ IV ×4 (02:33→23:42)
[2018-04-09] MEDS: DEXTROSE 5%-0.45% NACL 1,000 ML IV ×2 (02:33→15:54)
[2018-04-09 06:31] LABS: ADD MAN DIFF? NO
[2018-04-09 06:34] LABS: WHITE BLOOD COUNT 7.6 10^3/ul (4.8-10.8)
[2018-04-09 06:34] LABS: BASOPHILS % 0.5 % (0.0-2.0); EOSINOPHILS # 0.2 10^3/ul (0.0-0.5); EOSINOPHILS % 2.2 % (0.0-7.0); HEMATOCRIT 23.7 % (42.0-52.0); HEMOGLOBIN 7.9 g/dl (14.0-18.0); LYMPHOCYTES # 2.1 10^3/ul (0.8-2.9); MEAN CORPUSCULAR HEMOGLOBIN 30.6 pg (29.0-33.0); MEAN CORPUSCULAR HGB CONC 33.3 g/dl (32.0-37.0); MEAN CORPUSCULAR VOLUME 91.9 fl (82.0-101.0); MEAN PLATELET VOLUME 9.5 fl (7.4-10.4); MONOCYTE # 0.9 10^3/ul (0.3-0.9); MONOCYTES % 11.9 % (0.0-11.0); NEUTROPHIL # 4.3 10^3/ul (1.6-7.5); PLATELET COUNT 339 10^3/UL (140-415); RED BLOOD COUNT 2.58 10^6/ul (4.70-6.10); RED CELL DISTRIBUTION WIDTH 14.6 % (11.5-14.5)
[2018-04-09 07:25] LABS: ANION GAP 7 (5-13); BLOOD UREA NITROGEN 10 mg/dl (7-20); CALCIUM 7.7 mg/dl (8.4-10.2); CARBON DIOXIDE 23 mmol/L (21-31); CHLORIDE 108 mmol/L (97-110); CREATININE 0.49 mg/dl (0.61-1.24); Estimated GFR > 60 mL/min (>60); GLUCOSE 262 mg/dl (70-220); MAGNESIUM 1.4 mg/dl (1.7-2.5); PHOSPHORUS 2.9 mg/dl (2.5-4.9); POTASSIUM 3.5 mmol/L (3.5-5.1); SODIUM 138 mmol/L (135-144)
[2018-04-09] MEDS: LACTOBACILLUS RHAMNOSUS CAP PO ×3 (07:35→16:41)
[2018-04-09] MEDS: NEUTRA-PHOS 250 MG PACKET PO ×2 (08:02→20:41)
[2018-04-09] MEDS: MAGNESIUM OXIDE 400 MG TAB PO (08:02)
[2018-04-09] MEDS: SUCRALFATE (100 MG/ML) 10ML CUP PO ×4 (08:02→20:42)
[2018-04-09] MEDS: CALCIUM/VITAMIN D (500/200) TAB PO (08:02)
[2018-04-09] MEDS: MUPIROCIN 2% 22 GM OINT TOP ×2 (08:51→20:43)
[2018-04-09] MEDS: MAGNESIUM SULFATE 2 GM/50 ML 50 ML IVPB (08:51)
[2018-04-09] MEDS: INSULIN GLARGINE [LANTus] (100 UNITS/ML) SYG SC (09:11)
[2018-04-09] MEDS: ALBUTEROL/IPRATROPIUM (NEB) 3 ML AMP HHN ×3 (09:15→19:49)
[2018-04-09] MEDS: BUDESONIDE (NEB) 0.5MG/2ML AMP HHN ×2 (09:30→19:49)
[2018-04-09] MEDS: POTASSIUM CHLORIDE 100 ML IVPB ×2 (11:02→13:11)
[2018-04-09 13:11] LABS: HEMATOCRIT 23.6 % (42.0-52.0); HEMOGLOBIN 7.8 g/dl (14.0-18.0)
[2018-04-09] MEDS: ARTIFICIAL TEARS 15 ML OPH BOTH EYES (14:36)
[2018-04-09 15:32] LABS: CREATININE, RANDOM URINE 73 mg/dL (20-320); MICROALBUMIN 0.8 mg/dL; MICROALBUMIN/CREATININE RATIO 11 (<30)
[2018-04-09] MEDS ORDERED: PROPOFOL 40 ML (18:49)
[2018-04-09] MEDS: ATORVASTATIN 80 MG TAB PO (20:42)
[2018-04-09] MEDS: TAMSULOSIN (SR) 0.4 MG CAP PO (20:42)
[2018-04-09 22:37] LABS: HEMOGLOBIN 8.9 g/dl (14.0-18.0)
[2018-04-10 01:02] LABS: HEMATOCRIT 25.4 % (42.0-52.0); HEMOGLOBIN 8.5 g/dl (14.0-18.0)
[2018-04-10] MEDS: ACCU-CHEK XX (02:00)
[2018-04-10 05:50] LABS: ANION GAP 7 (5-13); BLOOD UREA NITROGEN 7 mg/dl (7-20); CALCIUM 8.3 mg/dl (8.4-10.2); CARBON DIOXIDE 23 mmol/L (21-31); CHLORIDE 109 mmol/L (97-110); CREATININE 0.51 mg/dl (0.61-1.24); Estimated GFR > 60 mL/min (>60); GLUCOSE 100 mg/dl (70-220); MAGNESIUM 1.4 mg/dl (1.7-2.5); PHOSPHORUS 3.1 mg/dl (2.5-4.9); POTASSIUM 3.8 mmol/L (3.5-5.1); SODIUM 139 mmol/L (135-144)
[2018-04-10] MEDS: INSULIN ASPART [NOVOLOG] 3 ML PEN SC ×7 (08:00→20:38)
[2018-04-10] MEDS: LACTOBACILLUS RHAMNOSUS CAP PO ×3 (08:04→17:23)
[2018-04-10] MEDS: INSULIN GLARGINE [LANTus] (100 UNITS/ML) SYG SC (08:05)
[2018-04-10] MEDS: SUCRALFATE (100 MG/ML) 10ML CUP PO ×4 (08:50→20:38)
[2018-04-10] MEDS: NEUTRA-PHOS 250 MG PACKET PO ×2 (08:51→20:38)
[2018-04-10] MEDS: MAGNESIUM OXIDE 400 MG TAB PO ×2 (08:51→08:57)
[2018-04-10] MEDS: CALCIUM/VITAMIN D (500/200) TAB PO (08:51)
[2018-04-10] MEDS: MUPIROCIN 2% 22 GM OINT TOP ×2 (08:54→20:44)
[2018-04-10] MEDS: morphine 2 MG INJ IV ×4 (08:57→22:55)
[2018-04-10] MEDS: ALBUTEROL/IPRATROPIUM (NEB) 3 ML AMP HHN ×3 (08:57→19:33)
[2018-04-10] MEDS: BUDESONIDE (NEB) 0.5MG/2ML AMP HHN ×2 (09:07→19:33)
[2018-04-10] MEDS: MAGNESIUM SULFATE 2 GM/50 ML 50 ML IVPB (09:46)
[2018-04-10 12:20] LABS: HEMATOCRIT 25.9 % (42.0-52.0); HEMOGLOBIN 8.5 g/dl (14.0-18.0)
[2018-04-10] MEDS: CLOPIDOGREL 75 MG TAB PO ×2 (13:00→13:46)
[2018-04-10] MEDS: ARTIFICIAL TEARS 15 ML OPH BOTH EYES (15:52)
[2018-04-10] MEDS: CIPROFLOXACIN 500 MG TAB PO (17:23)
[2018-04-10 18:16] LABS: HEMATOCRIT 25.9 % (42.0-52.0); HEMOGLOBIN 8.6 g/dl (14.0-18.0)
[2018-04-10] MEDS: ATORVASTATIN 80 MG TAB PO (20:38)
[2018-04-10] MEDS: TAMSULOSIN (SR) 0.4 MG CAP PO (20:38)
[2018-04-11 01:10] LABS: HEMATOCRIT 23.1 % (42.0-52.0); HEMOGLOBIN 7.8 g/dl (14.0-18.0)
[2018-04-11] MEDS: hydrALAzine 20 MG INJ IV (01:48)
[2018-04-11] MEDS: ACCU-CHEK XX (02:00)
[2018-04-11] MEDS: CIPROFLOXACIN 500 MG TAB PO (05:49)
[2018-04-11] MEDS: morphine 2 MG INJ IV ×3 (05:49→16:12)
[2018-04-11 05:58] LABS: HEMATOCRIT 23.7 % (42.0-52.0); HEMOGLOBIN 7.9 g/dl (14.0-18.0)
[2018-04-11 06:18] LABS: MAGNESIUM 1.2 mg/dl (1.7-2.5)
[2018-04-11 06:18] LABS: PHOSPHORUS 3.3 mg/dl (2.5-4.9)
[2018-04-11] MEDS: ALBUTEROL/IPRATROPIUM (NEB) 3 ML AMP HHN ×2 (07:53→13:33)
[2018-04-11] MEDS: INSULIN ASPART [NOVOLOG] 3 ML PEN SC ×6 (08:00→17:41)
[2018-04-11] MEDS: BUDESONIDE (NEB) 0.5MG/2ML AMP HHN (08:05)
[2018-04-11] MEDS: LACTOBACILLUS RHAMNOSUS CAP PO ×3 (08:23→17:17)
[2018-04-11] MEDS: SUCRALFATE (100 MG/ML) 10ML CUP PO ×3 (08:23→17:22)
[2018-04-11] MEDS: CLOPIDOGREL 75 MG TAB PO (08:23)
[2018-04-11] MEDS: CALCIUM/VITAMIN D (500/200) TAB PO (08:23)
[2018-04-11] MEDS: MAGNESIUM SULFATE 2 GM/50 ML 50 ML IVPB (08:23)
[2018-04-11] MEDS: NEUTRA-PHOS 250 MG PACKET PO (08:23)
[2018-04-11] MEDS: DOCUSATE SODIUM 100 MG CAP PO (08:24)
[2018-04-11] MEDS: MAGNESIUM OXIDE 400 MG TAB PO (08:26)
[2018-04-11] MEDS: INSULIN GLARGINE [LANTus] (100 UNITS/ML) SYG SC (08:27)
[2018-04-11] MEDS: ARTIFICIAL TEARS 15 ML OPH BOTH EYES ×2 (08:35→11:58)
[2018-04-11] MEDS: MUPIROCIN 2% 22 GM OINT TOP (08:38)
[2018-04-11] MEDS: ONDANSETRON 4 MG INJ IV (16:16)
[2018-04-11] MEDS ORDERED: traZODone 50 MG TAB PO (21:00)
== END 2018-04-11 18:30 | DRG 917 ==
LOC: TEL 04-01 15:36 → PP2 04-05 20:04 → E/R 12:56 → ICU 03-31 14:21 → TEL 04-01 16:17
PROC: 0DJ08ZZ Inspection of Upper Intestinal Tract, Via Natural or Artificial Opening Endoscopic (ICD-10-PCS; principal; 2018-03-31 16:00)
PROC: 02H633Z Insertion of Infusion Device into Right Atrium, Percutaneous Approach (ICD-10-PCS; 2018-03-31 16:00)
PROC: 30233N1 Transfusion of Nonautologous Red Blood Cells into Peripheral Vein, Percutaneous Approach (ICD-10-PCS; 2018-03-31 16:00)
PROC: 0DJ08ZZ Inspection of Upper Intestinal Tract, Via Natural or Artificial Opening Endoscopic (ICD-10-PCS; 2018-03-31 16:00)
DX: T40.1X1A Poisoning by heroin, accidental (unintentional), initial encounter (principal); J96.01 Acute respiratory failure with hypoxia; G92 Toxic encephalopathy; I63.9 Cerebral infarction, unspecified; K25.0 Acute gastric ulcer with hemorrhage; D62 Acute posthemorrhagic anemia; N17.9 Acute kidney failure, unspecified; N39.0 Urinary tract infection, site not specified; J44.1 Chronic obstructive pulmonary disease with (acute) exacerbation; E11.9 Type 2 diabetes mellitus without complications; F17.210 Nicotine dependence, cigarettes, uncomplicated; I10 Essential (primary) hypertension; I65.23 Occlusion and stenosis of bilateral carotid arteries; N20.0 Calculus of kidney; N40.0 Benign prostatic hyperplasia without lower urinary tract symptoms; Z22.322 Carrier or suspected carrier of Methicillin resistant Staphylococcus aureus; Z79.4 Long term (current) use of insulin
CPT/HCPCS: 36415; 36430; 36569; 36600; 70450; 70544; 70549; 70551; 71045; 74018; 74176; 76775; 76937; 80048; 80053; 80061; 80307; 81001; 81003; 82043; 82140; 82550; 82803; 82962; 83036; 83605; 83690; 83735; 83880; 84100; 84155; 84300; 84439; 84443; 84484; 85014; 85018; 85025; 85610; 85651; 86592; 86850; 86900; 86901; 86920; 87040; 87081; 87086; 93005; 93306; 94640; 94644; 96374; 96375; 97110; 97116; 97161; 97166; 97530; 99291-25

== ENCOUNTER 2018-04-11 18:37 | Inpatient (IN) | payer MEDICARE, OTHER ==
[2018-04-11 19:11] LABS: ADD UMIC YES; UR ASCORBIC ACID 40 mg/dL (NEGATIVE); UR BACTERIA FEW /HPF (NONE SEEN); UR BILIRUBIN (Dip) NEGATIVE (NEGATIVE); UR BLOOD (Dip) NEGATIVE (NEGATIVE); UR CLARITY CLEAR (CLEAR); UR COLOR YELLOW (YELLOW); UR GLUCOSE (Dip) NEGATIVE (NEGATIVE); UR KETONES (Dip) NEGATIVE (NEGATIVE); UR LEUKOCYTE ESTERASE (Dip) TRACE Leu/ul (NEGATIVE); UR MUCUS FEW /HPF (NONE SEEN); UR NITRITE (Dip) NEGATIVE (NEGATIVE); UR RBC 1 /HPF (0-5); UR SPECIFIC GRAVITY (Dip) 1.012 (1.003-1.030); UR TOTAL PROTEIN (Dip) NEGATIVE (NEGATIVE); UR UROBILINOGEN (Dip) 2+ mg/dL (NEGATIVE); UR WBC 12 /HPF (0-5)
[2018-04-11] MEDS ORDERED: ALBUTEROL/IPRATROPIUM (NEB) 3 ML AMP HHN (20:15)
[2018-04-11] MEDS ORDERED: ARTIFICIAL TEARS 15 ML OPH BOTH EYES (20:20)
[2018-04-11] MEDS ORDERED: CIPROFLOXACIN 500 MG TAB PO (20:20)
[2018-04-11] MEDS ORDERED: LACTOBACILLUS RHAMNOSUS CAP PO (20:37)
[2018-04-11] MEDS ORDERED: SUCRALFATE (100 MG/ML) 10ML CUP PO (20:37)
[2018-04-11] MEDS: TAMSULOSIN (SR) 0.4 MG CAP PO (20:55)
[2018-04-11] MEDS: ATORVASTATIN 80 MG TAB PO (20:56)
[2018-04-11] MEDS: CIPROFLOXACIN 500 MG TAB PO (20:56)
[2018-04-11] MEDS: traZODone 50 MG TAB PO (20:56)
[2018-04-11] MEDS: hydrALAzine 20 MG INJ IV (21:43)
[2018-04-11] MEDS: morphine 2 MG INJ IV (21:43)
[2018-04-11] MEDS: SUCRALFATE (100 MG/ML) 10ML CUP PO (22:17)
[2018-04-12] MEDS: morphine 2 MG INJ IV ×3 (01:59→16:57)
[2018-04-12] MEDS: hydrALAzine 20 MG INJ IV (01:59)
[2018-04-12] MEDS: CIPROFLOXACIN 500 MG TAB PO ×2 (06:04→17:32)
[2018-04-12 07:04] LABS: ADD MAN DIFF? NO
[2018-04-12 07:10] LABS: BASOPHIL # 0.1 10^3/ul (0.0-0.1); BASOPHILS % 0.7 % (0.0-2.0); EOSINOPHILS # 0.2 10^3/ul (0.0-0.5); EOSINOPHILS % 2.2 % (0.0-7.0); HEMATOCRIT 27.1 % (42.0-52.0); LYMPHOCYTES # 1.9 10^3/ul (0.8-2.9); LYMPHOCYTES % 21.1 % (15.0-51.0); MEAN CORPUSCULAR HEMOGLOBIN 30.7 pg (29.0-33.0); MEAN CORPUSCULAR HGB CONC 33.2 g/dl (32.0-37.0); MEAN CORPUSCULAR VOLUME 92.5 fl (82.0-101.0); MEAN PLATELET VOLUME 9.3 fl (7.4-10.4); MONOCYTE # 1.2 10^3/ul (0.3-0.9); MONOCYTES % 13.1 % (0.0-11.0); NEUTROPHIL # 5.6 10^3/ul (1.6-7.5); NEUTROPHILS % 61.9 % (39.0-77.0); PLATELET COUNT 338 10^3/UL (140-415); RED BLOOD COUNT 2.93 10^6/ul (4.70-6.10); RED CELL DISTRIBUTION WIDTH 14.6 % (11.5-14.5)
[2018-04-12] MEDS: INSULIN ASPART [NOVOLOG] 3 ML PEN SC ×4 (07:35→17:27)
[2018-04-12 07:37] LABS: ALANINE AMINOTRANSFERASE 31 IU/L (13-69); ALBUMIN 2.6 g/dl (3.3-4.9); ALBUMIN/GLOBULIN RATIO 0.96; ALKALINE PHOSPHATASE 81 IU/L (42-121); ANION GAP 5 (5-13); ASPARTATE AMINO TRANSFERASE 30 IU/L (15-46); BILIRUBIN,INDIRECT 0.3 mg/dl (0-1.1); BILIRUBIN,TOTAL 0.3 mg/dl (0.2-1.3); BLOOD UREA NITROGEN 9 mg/dl (7-20); CALCIUM 8.4 mg/dl (8.4-10.2); CARBON DIOXIDE 28 mmol/L (21-31); CHLORIDE 106 mmol/L (97-110); CREATININE 0.58 mg/dl (0.61-1.24); Estimated GFR > 60 mL/min (>60); GLUCOSE 130 mg/dl (70-220); POTASSIUM 4.1 mmol/L (3.5-5.1); SODIUM 139 mmol/L (135-144); TOTAL PROTEIN 5.3 g/dl (6.1-8.1)
[2018-04-12] MEDS: ATENOLOL 50 MG TAB PO (08:08)
[2018-04-12] MEDS: MAGNESIUM OXIDE 400 MG TAB PO (08:09)
[2018-04-12] MEDS: GABAPENTIN 400 MG CAP PO ×3 (08:09→21:03)
[2018-04-12] MEDS: CLOPIDOGREL 75 MG TAB PO (08:09)
[2018-04-12] MEDS: LACTOBACILLUS RHAMNOSUS CAP PO ×3 (08:09→17:31)
[2018-04-12] MEDS: DOCUSATE SODIUM 100 MG CAP PO ×2 (08:09→21:03)
[2018-04-12] MEDS: CALCIUM/VITAMIN D (500/200) TAB PO (08:09)
[2018-04-12] MEDS: SUCRALFATE (100 MG/ML) 10ML CUP PO ×4 (08:10→21:49)
[2018-04-12] MEDS: INSULIN GLARGINE [LANTus] (100 UNITS/ML) SYG SC (08:12)
[2018-04-12] MEDS: BUDESONIDE (NEB) 0.5MG/2ML AMP HHN ×2 (09:00→19:57)
[2018-04-12] MEDS: ACETAMINOPHEN 325 MG TAB PO (10:02)
[2018-04-12] MEDS: LISINOPRIL 5 MG TAB PO (12:10)
[2018-04-12 13:05] LABS: HEMOGLOBIN A1C 6.1 % (0-5.9)
[2018-04-12] MEDS: ATORVASTATIN 80 MG TAB PO (21:02)
[2018-04-12] MEDS: SENNA TAB PO (21:03)
[2018-04-12] MEDS: MONTELUKAST 10 MG TAB PO (21:03)
[2018-04-12] MEDS: traZODone 50 MG TAB PO (21:03)
[2018-04-12] MEDS: TAMSULOSIN (SR) 0.4 MG CAP PO (21:03)
[2018-04-12] MEDS: METOPROLOL 25 MG TAB PO (21:04)
[2018-04-13] MEDS: morphine 2 MG INJ IV ×3 (03:02→19:34)
[2018-04-13] MEDS: CIPROFLOXACIN 500 MG TAB PO ×2 (06:35→17:09)
[2018-04-13 07:41] LABS: ANION GAP 4 (5-13); BLOOD UREA NITROGEN 15 mg/dl (7-20); CALCIUM 8.1 mg/dl (8.4-10.2); CARBON DIOXIDE 33 mmol/L (21-31); CHLORIDE 103 mmol/L (97-110); CREATININE 0.55 mg/dl (0.61-1.24); Estimated GFR > 60 mL/min (>60); GLUCOSE 105 mg/dl (70-220); MAGNESIUM 1.3 mg/dl (1.7-2.5); PHOSPHORUS 3.3 mg/dl (2.5-4.9); POTASSIUM 3.7 mmol/L (3.5-5.1); SODIUM 140 mmol/L (135-144)
[2018-04-13] MEDS: SUCRALFATE (100 MG/ML) 10ML CUP PO ×4 (08:05→20:27)
[2018-04-13] MEDS: LACTOBACILLUS RHAMNOSUS CAP PO ×3 (08:06→17:09)
[2018-04-13] MEDS: GABAPENTIN 400 MG CAP PO ×3 (08:06→20:27)
[2018-04-13] MEDS: DOCUSATE SODIUM 100 MG CAP PO ×2 (08:06→20:26)
[2018-04-13] MEDS: CLOPIDOGREL 75 MG TAB PO (08:06)
[2018-04-13] MEDS: MAGNESIUM OXIDE 400 MG TAB PO (08:06)
[2018-04-13] MEDS: LISINOPRIL 10 MG TAB PO (08:07)
[2018-04-13] MEDS: METOPROLOL 25 MG TAB PO ×2 (08:07→20:27)
[2018-04-13] MEDS: CALCIUM/VITAMIN D (500/200) TAB PO (08:07)
[2018-04-13] MEDS: INSULIN ASPART [NOVOLOG] 3 ML PEN SC ×3 (08:10→17:09)
[2018-04-13] MEDS: INSULIN GLARGINE [LANTus] (100 UNITS/ML) SYG SC (08:15)
[2018-04-13] MEDS: TIOTROPIUM 18 MCG CAPSULE INHA DEV INH (08:22)
[2018-04-13] MEDS: FLUTICASONE/VILANTEROL 100-25 INH (08:22)
[2018-04-13] MEDS: BUDESONIDE (NEB) 0.5MG/2ML AMP HHN ×2 (09:00→19:50)
[2018-04-13 11:59] LABS: ADD MAN DIFF? NO
[2018-04-13] MEDS ORDERED: BISACODYL 10 MG SUPP PR (12:00)
[2018-04-13 12:04] LABS: BASOPHIL # 0.1 10^3/ul (0.0-0.1); BASOPHILS % 0.9 % (0.0-2.0); EOSINOPHILS # 0.3 10^3/ul (0.0-0.5); EOSINOPHILS % 2.9 % (0.0-7.0); HEMATOCRIT 26.8 % (42.0-52.0); HEMOGLOBIN 8.7 g/dl (14.0-18.0); LYMPHOCYTES % 19.5 % (15.0-51.0); MEAN CORPUSCULAR HEMOGLOBIN 30.3 pg (29.0-33.0); MEAN CORPUSCULAR HGB CONC 32.5 g/dl (32.0-37.0); MEAN CORPUSCULAR VOLUME 93.4 fl (82.0-101.0); MEAN PLATELET VOLUME 9.9 fl (7.4-10.4); MONOCYTE # 1.1 10^3/ul (0.3-0.9); MONOCYTES % 10.8 % (0.0-11.0); NEUTROPHIL # 6.6 10^3/ul (1.6-7.5); NEUTROPHILS % 65.1 % (39.0-77.0); PLATELET COUNT 339 10^3/UL (140-415); RED BLOOD COUNT 2.87 10^6/ul (4.70-6.10); RED CELL DISTRIBUTION WIDTH 14.7 % (11.5-14.5)
[2018-04-13 12:04] LABS: WHITE BLOOD COUNT 10.1 10^3/ul (4.8-10.8)
[2018-04-13] MEDS: MAGNESIUM SULFATE 3 GM in DEXTROSE 5% 100 ML IVPB (15:53)
[2018-04-13] MEDS: BISACODYL 10 MG SUPP PR (16:07)
[2018-04-13] MEDS: MONTELUKAST 10 MG TAB PO (20:27)
[2018-04-13] MEDS: ATORVASTATIN 80 MG TAB PO (20:27)
[2018-04-13] MEDS: SENNA TAB PO (20:27)
[2018-04-13] MEDS: TAMSULOSIN (SR) 0.4 MG CAP PO (20:27)
[2018-04-13] MEDS: traZODone 50 MG TAB PO (20:27)
[2018-04-13] MEDS: ONDANSETRON 4 MG INJ IV (20:28)
[2018-04-14] MEDS: CIPROFLOXACIN 500 MG TAB PO ×2 (06:18→18:57)
[2018-04-14] MEDS: morphine 2 MG INJ IV ×4 (06:18→21:03)
[2018-04-14] MEDS: ONDANSETRON 4 MG INJ IV (06:18)
[2018-04-14 07:55] LABS: ANION GAP 6 (5-13); BLOOD UREA NITROGEN 15 mg/dl (7-20); CALCIUM 8.6 mg/dl (8.4-10.2); CARBON DIOXIDE 35 mmol/L (21-31); CHLORIDE 100 mmol/L (97-110); CREATININE 0.59 mg/dl (0.61-1.24); Estimated GFR > 60 mL/min (>60); GLUCOSE 123 mg/dl (70-220); MAGNESIUM 1.8 mg/dl (1.7-2.5); POTASSIUM 3.5 mmol/L (3.5-5.1); SODIUM 141 mmol/L (135-144)
[2018-04-14] MEDS: INSULIN ASPART [NOVOLOG] 3 ML PEN SC ×3 (08:09→17:05)
[2018-04-14] MEDS: INSULIN GLARGINE [LANTus] (100 UNITS/ML) SYG SC (08:10)
[2018-04-14] MEDS: TIOTROPIUM 18 MCG CAPSULE INHA DEV INH (08:12)
[2018-04-14] MEDS: CLOPIDOGREL 75 MG TAB PO (08:12)
[2018-04-14] MEDS: CALCIUM/VITAMIN D (500/200) TAB PO (08:12)
[2018-04-14] MEDS: SUCRALFATE (100 MG/ML) 10ML CUP PO ×4 (08:12→20:55)
[2018-04-14] MEDS: FLUTICASONE/VILANTEROL 100-25 INH (08:12)
[2018-04-14] MEDS: MAGNESIUM OXIDE 400 MG TAB PO (08:12)
[2018-04-14] MEDS: GABAPENTIN 400 MG CAP PO ×3 (08:12→20:55)
[2018-04-14] MEDS: DOCUSATE SODIUM 100 MG CAP PO ×2 (08:12→20:55)
[2018-04-14] MEDS: LISINOPRIL 10 MG TAB PO (08:13)
[2018-04-14] MEDS: METOPROLOL 25 MG TAB PO ×2 (08:13→21:02)
[2018-04-14] MEDS: LACTOBACILLUS RHAMNOSUS CAP PO ×3 (08:13→17:06)
[2018-04-14] MEDS: BUDESONIDE (NEB) 0.5MG/2ML AMP HHN ×2 (08:38→20:01)
[2018-04-14] MEDS ORDERED: DOCUSATE SODIUM 100 MG CAP PO (11:30)
[2018-04-14] MEDS ORDERED: POLYETHYLENE GLYCOL 17 GM PACKET PO (11:30)
[2018-04-14] MEDS: metFORMIN 500 MG TAB PO (17:06)
[2018-04-14] MEDS: BISACODYL 10 MG SUPP PR (19:51)
[2018-04-14] MEDS: traZODone 50 MG TAB PO (20:55)
[2018-04-14] MEDS: ATORVASTATIN 80 MG TAB PO (20:55)
[2018-04-14] MEDS: SENNA TAB PO (20:55)
[2018-04-14] MEDS: MONTELUKAST 10 MG TAB PO (20:55)
[2018-04-14] MEDS: TAMSULOSIN (SR) 0.4 MG CAP PO (20:56)
[2018-04-15] MEDS ORDERED: MAGNESIUM HYDROXIDE 30ML CUP PO (06:00)
[2018-04-15] MEDS: CIPROFLOXACIN 500 MG TAB PO ×2 (06:19→17:41)
[2018-04-15] MEDS: MAGNESIUM HYDROXIDE 30ML CUP PO (06:22)
[2018-04-15] MEDS: SUCRALFATE (100 MG/ML) 10ML CUP PO ×4 (07:46→20:51)
[2018-04-15] MEDS: metFORMIN 500 MG TAB PO ×2 (07:50→17:42)
[2018-04-15] MEDS: INSULIN ASPART [NOVOLOG] 3 ML PEN SC ×3 (07:52→17:51)
[2018-04-15] MEDS: ONDANSETRON 4 MG INJ IV ×2 (08:24→20:49)
[2018-04-15] MEDS: TIOTROPIUM 18 MCG CAPSULE INHA DEV INH (08:26)
[2018-04-15] MEDS: FLUTICASONE/VILANTEROL 100-25 INH (08:27)
[2018-04-15] MEDS: CALCIUM/VITAMIN D (500/200) TAB PO (08:27)
[2018-04-15] MEDS: DOCUSATE SODIUM 100 MG CAP PO ×2 (08:27→20:50)
[2018-04-15] MEDS: MAGNESIUM OXIDE 400 MG TAB PO (08:27)
[2018-04-15] MEDS: LACTOBACILLUS RHAMNOSUS CAP PO ×3 (08:28→17:42)
[2018-04-15] MEDS: CLOPIDOGREL 75 MG TAB PO (08:28)
[2018-04-15] MEDS: LISINOPRIL 10 MG TAB PO (08:28)
[2018-04-15] MEDS: GABAPENTIN 400 MG CAP PO ×3 (08:28→20:49)
[2018-04-15] MEDS: METOPROLOL 25 MG TAB PO ×2 (08:28→20:51)
[2018-04-15] MEDS ORDERED: POLYETHYLENE GLYCOL 17 GM PACKET PO (09:00)
[2018-04-15] MEDS: morphine 2 MG INJ IV ×3 (09:50→18:07)
[2018-04-15] MEDS: BUDESONIDE (NEB) 0.5MG/2ML AMP HHN ×2 (10:06→21:06)
[2018-04-15] MEDS: MONTELUKAST 10 MG TAB PO (20:50)
[2018-04-15] MEDS: ACETAMINOPHEN 325 MG TAB PO (20:50)
[2018-04-15] MEDS: traZODone 50 MG TAB PO (20:50)
[2018-04-15] MEDS: TAMSULOSIN (SR) 0.4 MG CAP PO (20:50)
[2018-04-15] MEDS: SENNA TAB PO (20:50)
[2018-04-15] MEDS: ATORVASTATIN 80 MG TAB PO (20:51)
[2018-04-16] MEDS: ONDANSETRON 4 MG INJ IV ×2 (01:16→22:48)
[2018-04-16] MEDS: morphine 2 MG INJ IV ×5 (01:23→20:50)
[2018-04-16] MEDS: CIPROFLOXACIN 500 MG TAB PO ×2 (06:32→17:34)
[2018-04-16] MEDS: ACETAMINOPHEN 325 MG TAB PO (07:46)
[2018-04-16] MEDS: LACTOBACILLUS RHAMNOSUS CAP PO ×3 (07:46→16:37)
[2018-04-16] MEDS: metFORMIN 500 MG TAB PO ×2 (07:49→17:34)
[2018-04-16] MEDS: INSULIN ASPART [NOVOLOG] 3 ML PEN SC ×3 (07:50→17:35)
[2018-04-16] MEDS: BUDESONIDE (NEB) 0.5MG/2ML AMP HHN ×2 (08:10→20:00)
[2018-04-16] MEDS: TIOTROPIUM 18 MCG CAPSULE INHA DEV INH (09:11)
[2018-04-16] MEDS: SUCRALFATE (100 MG/ML) 10ML CUP PO ×4 (09:12→20:48)
[2018-04-16] MEDS: CALCIUM/VITAMIN D (500/200) TAB PO (09:12)
[2018-04-16] MEDS: METOPROLOL 25 MG TAB PO ×2 (09:12→20:49)
[2018-04-16] MEDS: LISINOPRIL 10 MG TAB PO (09:12)
[2018-04-16] MEDS: FLUTICASONE/VILANTEROL 100-25 INH (09:12)
[2018-04-16] MEDS: GABAPENTIN 400 MG CAP PO ×3 (09:13→20:49)
[2018-04-16] MEDS: MAGNESIUM OXIDE 400 MG TAB PO (09:13)
[2018-04-16] MEDS: CLOPIDOGREL 75 MG TAB PO (09:13)
[2018-04-16] MEDS: DOCUSATE SODIUM 100 MG CAP PO ×2 (09:13→20:48)
[2018-04-16] MEDS: METOCLOPRAMIDE 10 MG INJ IV ×2 (12:07→17:34)
[2018-04-16] MEDS: ALBUTEROL/IPRATROPIUM (NEB) 3 ML AMP HHN (14:01)
[2018-04-16] MEDS: ATORVASTATIN 80 MG TAB PO (20:48)
[2018-04-16] MEDS: traZODone 50 MG TAB PO (20:48)
[2018-04-16] MEDS: LACTULOSE 30ML CUP PO (20:48)
[2018-04-16] MEDS: MONTELUKAST 10 MG TAB PO (20:48)
[2018-04-16] MEDS: TAMSULOSIN (SR) 0.4 MG CAP PO (20:49)
[2018-04-16] MEDS: SENNA TAB PO (20:49)
[2018-04-17] MEDS: morphine 2 MG INJ IV ×4 (00:41→20:19)
[2018-04-17] MEDS: METOCLOPRAMIDE 10 MG INJ IV ×4 (00:41→17:20)
[2018-04-17] MEDS: CIPROFLOXACIN 500 MG TAB PO ×2 (05:06→17:20)
[2018-04-17] MEDS: LACTOBACILLUS RHAMNOSUS CAP PO ×3 (08:26→17:20)
[2018-04-17] MEDS: GABAPENTIN 400 MG CAP PO ×3 (08:26→20:13)
[2018-04-17] MEDS: METOPROLOL 25 MG TAB PO ×2 (08:26→20:17)
[2018-04-17] MEDS: SUCRALFATE (100 MG/ML) 10ML CUP PO ×4 (08:26→20:12)
[2018-04-17] MEDS: FLUTICASONE/VILANTEROL 100-25 INH (08:26)
[2018-04-17] MEDS: CLOPIDOGREL 75 MG TAB PO (08:26)
[2018-04-17] MEDS: DOCUSATE SODIUM 100 MG CAP PO ×2 (08:27→20:17)
[2018-04-17] MEDS: LISINOPRIL 10 MG TAB PO (08:27)
[2018-04-17] MEDS: MAGNESIUM OXIDE 400 MG TAB PO (08:27)
[2018-04-17] MEDS: metFORMIN 500 MG TAB PO ×2 (08:27→17:20)
[2018-04-17] MEDS: CALCIUM/VITAMIN D (500/200) TAB PO (08:27)
[2018-04-17] MEDS: INSULIN ASPART [NOVOLOG] 3 ML PEN SC ×3 (08:28→17:22)
[2018-04-17] MEDS: TIOTROPIUM 18 MCG CAPSULE INHA DEV INH (08:37)
[2018-04-17] MEDS: BUDESONIDE (NEB) 0.5MG/2ML AMP HHN (09:38)
[2018-04-17] MEDS: FINASTERIDE 5 MG TAB PO (15:39)
[2018-04-17] MEDS: oxyCODONE 5 MG TAB PO (15:40)
[2018-04-17] MEDS: SUCRALFATE 1 GM TAB PO (17:00)
[2018-04-17] MEDS: MONTELUKAST 10 MG TAB PO (20:12)
[2018-04-17] MEDS: ATORVASTATIN 80 MG TAB PO (20:13)
[2018-04-17] MEDS: traZODone 50 MG TAB PO (20:13)
[2018-04-17] MEDS: TAMSULOSIN (SR) 0.4 MG CAP PO (20:13)
[2018-04-17] MEDS: SENNA TAB PO (20:17)
[2018-04-18] MEDS: METOCLOPRAMIDE 10 MG INJ IV ×4 (06:00→17:02)
[2018-04-18] MEDS: INSULIN ASPART [NOVOLOG] 3 ML PEN SC ×3 (08:12→17:05)
[2018-04-18] MEDS: FINASTERIDE 5 MG TAB PO (08:36)
[2018-04-18] MEDS: metFORMIN 500 MG TAB PO ×2 (08:36→17:02)
[2018-04-18] MEDS: CLOPIDOGREL 75 MG TAB PO (08:37)
[2018-04-18] MEDS: SUCRALFATE (100 MG/ML) 10ML CUP PO ×4 (08:37→21:14)
[2018-04-18] MEDS: MAGNESIUM OXIDE 400 MG TAB PO (08:37)
[2018-04-18] MEDS: LACTOBACILLUS RHAMNOSUS CAP PO ×3 (08:37→17:02)
[2018-04-18] MEDS: CALCIUM/VITAMIN D (500/200) TAB PO (08:37)
[2018-04-18] MEDS: GABAPENTIN 400 MG CAP PO ×3 (08:37→21:14)
[2018-04-18] MEDS: DOCUSATE SODIUM 100 MG CAP PO ×2 (08:37→21:00)
[2018-04-18] MEDS: FLUTICASONE/VILANTEROL 100-25 INH (08:38)
[2018-04-18] MEDS: METOPROLOL 25 MG TAB PO ×2 (08:38→21:18)
[2018-04-18] MEDS: TIOTROPIUM 18 MCG CAPSULE INHA DEV INH (08:38)
[2018-04-18] MEDS: LISINOPRIL 10 MG TAB PO (08:39)
[2018-04-18] MEDS: oxyCODONE 5 MG TAB PO ×3 (09:42→21:33)
[2018-04-18] MEDS: morphine 2 MG INJ IV (09:42)
[2018-04-18] MEDS: ALTEPLASE (CATHFLO) 2 MG INJ CATHETER (15:46)
[2018-04-18] MEDS: BISMUTH SUBSALICYLATE 120 ML BTL PO ×2 (17:02→21:19)
[2018-04-18] MEDS: PANTOPRAZOLE (EC) 40 MG TAB PO (17:07)
[2018-04-18] MEDS: SENNA TAB PO (21:00)
[2018-04-18] MEDS: CLARITHROMYCIN 500 MG TAB PO (21:14)
[2018-04-18] MEDS: MONTELUKAST 10 MG TAB PO (21:14)
[2018-04-18] MEDS: ATORVASTATIN 80 MG TAB PO (21:14)
[2018-04-18] MEDS: AMOXICILLIN 500 MG CAP PO (21:14)
[2018-04-18] MEDS: TAMSULOSIN (SR) 0.4 MG CAP PO (21:18)
[2018-04-18] MEDS: traZODone 50 MG TAB PO (21:18)
[2018-04-19] MEDS: METOCLOPRAMIDE 10 MG INJ IV ×4 (00:15→17:44)
[2018-04-19] MEDS: PANTOPRAZOLE (EC) 40 MG TAB PO ×2 (06:00→17:44)
[2018-04-19] MEDS: morphine 2 MG INJ IV ×3 (06:25→21:39)
[2018-04-19] MEDS: metFORMIN 500 MG TAB PO ×2 (07:35→17:46)
[2018-04-19] MEDS: LACTOBACILLUS RHAMNOSUS CAP PO ×3 (07:35→17:44)
[2018-04-19] MEDS: BISMUTH SUBSALICYLATE 120 ML BTL PO ×5 (07:35→21:15)
[2018-04-19] MEDS: INSULIN ASPART [NOVOLOG] 3 ML PEN SC ×2 (07:35→12:45)
[2018-04-19] MEDS: DOCUSATE SODIUM 100 MG CAP PO ×2 (09:00→21:00)
[2018-04-19] MEDS: FLUTICASONE/VILANTEROL 100-25 INH (09:09)
[2018-04-19] MEDS: TIOTROPIUM 18 MCG CAPSULE INHA DEV INH (09:10)
[2018-04-19] MEDS: SUCRALFATE (100 MG/ML) 10ML CUP PO ×4 (09:10→21:16)
[2018-04-19] MEDS: ACETAMINOPHEN 325 MG TAB PO (09:11)
[2018-04-19] MEDS: AMOXICILLIN 500 MG CAP PO ×2 (09:11→21:14)
[2018-04-19] MEDS: CLARITHROMYCIN 500 MG TAB PO ×2 (09:11→21:14)
[2018-04-19] MEDS: CALCIUM/VITAMIN D (500/200) TAB PO (09:11)
[2018-04-19] MEDS: METOPROLOL 25 MG TAB PO ×2 (09:12→21:00)
[2018-04-19] MEDS: CLOPIDOGREL 75 MG TAB PO (09:12)
[2018-04-19] MEDS: MAGNESIUM OXIDE 400 MG TAB PO (09:12)
[2018-04-19] MEDS: GABAPENTIN 400 MG CAP PO ×3 (09:12→21:15)
[2018-04-19] MEDS: FINASTERIDE 5 MG TAB PO (09:12)
[2018-04-19] MEDS: oxyCODONE 5 MG TAB PO ×2 (09:13→18:26)
[2018-04-19] MEDS: LISINOPRIL 10 MG TAB PO (09:13)
[2018-04-19] MEDS: ALBUTEROL/IPRATROPIUM (NEB) 3 ML AMP HHN (15:06)
[2018-04-19] MEDS: SENNA TAB PO (21:00)
[2018-04-19] MEDS: TAMSULOSIN (SR) 0.4 MG CAP PO (21:14)
[2018-04-19] MEDS: traZODone 50 MG TAB PO (21:14)
[2018-04-19] MEDS: ATORVASTATIN 80 MG TAB PO (21:14)
[2018-04-19] MEDS: MONTELUKAST 10 MG TAB PO (21:15)
[2018-04-20] MEDS: METOCLOPRAMIDE 10 MG INJ IV ×4 (00:25→17:43)
[2018-04-20] MEDS: PANTOPRAZOLE (EC) 40 MG TAB PO ×2 (05:58→17:43)
[2018-04-20] MEDS: morphine 2 MG INJ IV ×2 (06:08→06:54)
[2018-04-20] MEDS: metFORMIN 500 MG TAB PO ×2 (07:50→17:44)
[2018-04-20] MEDS: BISMUTH SUBSALICYLATE 120 ML BTL PO ×4 (07:51→20:20)
[2018-04-20] MEDS: LACTOBACILLUS RHAMNOSUS CAP PO ×3 (07:53→17:44)
[2018-04-20] MEDS: FLUTICASONE/VILANTEROL 100-25 INH (09:25)
[2018-04-20] MEDS: TIOTROPIUM 18 MCG CAPSULE INHA DEV INH (09:25)
[2018-04-20] MEDS: SUCRALFATE (100 MG/ML) 10ML CUP PO ×4 (09:27→20:20)
[2018-04-20] MEDS: LIDOCAINE 5% PATCH TD (09:27)
[2018-04-20] MEDS: AMOXICILLIN 500 MG CAP PO ×2 (09:28→20:18)
[2018-04-20] MEDS: GABAPENTIN 400 MG CAP PO ×3 (09:28→20:18)
[2018-04-20] MEDS: CALCIUM/VITAMIN D (500/200) TAB PO (09:28)
[2018-04-20] MEDS: CLOPIDOGREL 75 MG TAB PO (09:28)
[2018-04-20] MEDS: ACETAMINOPHEN 325 MG TAB PO (09:29)
[2018-04-20] MEDS: FINASTERIDE 5 MG TAB PO (09:29)
[2018-04-20] MEDS: CLARITHROMYCIN 500 MG TAB PO ×2 (09:30→20:18)
[2018-04-20] MEDS: DOCUSATE SODIUM 100 MG CAP PO ×2 (09:30→20:20)
[2018-04-20] MEDS: MAGNESIUM OXIDE 400 MG TAB PO (09:30)
[2018-04-20] MEDS: METOPROLOL 25 MG TAB PO ×2 (09:30→20:19)
[2018-04-20] MEDS: LISINOPRIL 10 MG TAB PO (09:30)
[2018-04-20] MEDS: oxyCODONE 5 MG TAB PO ×2 (12:23→19:13)
[2018-04-20] MEDS: MONTELUKAST 10 MG TAB PO (20:19)
[2018-04-20] MEDS: TAMSULOSIN (SR) 0.4 MG CAP PO (20:20)
[2018-04-20] MEDS: SENNA TAB PO (20:20)
[2018-04-20] MEDS: ATORVASTATIN 80 MG TAB PO (20:20)
[2018-04-20] MEDS: traZODone 50 MG TAB PO (20:20)
[2018-04-21] MEDS: METOCLOPRAMIDE 10 MG INJ IV ×3 (00:51→12:04)
[2018-04-21] MEDS: oxyCODONE 5 MG TAB PO ×3 (00:52→12:16)
[2018-04-21] MEDS: PANTOPRAZOLE (EC) 40 MG TAB PO (06:15)
[2018-04-21] MEDS: DOCUSATE SODIUM 100 MG CAP PO (09:00)
[2018-04-21] MEDS: LIDOCAINE 5% PATCH TD (09:07)
[2018-04-21] MEDS: SUCRALFATE (100 MG/ML) 10ML CUP PO ×2 (09:08→12:04)
[2018-04-21] MEDS: TIOTROPIUM 18 MCG CAPSULE INHA DEV INH (09:08)
[2018-04-21] MEDS: FLUTICASONE/VILANTEROL 100-25 INH (09:08)
[2018-04-21] MEDS: metFORMIN 500 MG TAB PO (09:09)
[2018-04-21] MEDS: CLARITHROMYCIN 500 MG TAB PO (09:10)
[2018-04-21] MEDS: CLOPIDOGREL 75 MG TAB PO (09:10)
[2018-04-21] MEDS: MAGNESIUM OXIDE 400 MG TAB PO (09:10)
[2018-04-21] MEDS: CALCIUM/VITAMIN D (500/200) TAB PO (09:10)
[2018-04-21] MEDS: GABAPENTIN 400 MG CAP PO ×2 (09:10→12:04)
[2018-04-21] MEDS: FINASTERIDE 5 MG TAB PO (09:10)
[2018-04-21] MEDS: LACTOBACILLUS RHAMNOSUS CAP PO ×2 (09:10→12:04)
[2018-04-21] MEDS: LISINOPRIL 10 MG TAB PO (09:10)
[2018-04-21] MEDS: AMOXICILLIN 500 MG CAP PO (09:10)
[2018-04-21] MEDS: METOPROLOL 25 MG TAB PO (09:11)
[2018-04-21] MEDS: BISMUTH SUBSALICYLATE 120 ML BTL PO ×2 (09:11→12:12)
== END 2018-04-21 13:00 | disposition home health service (06) | DRG 57 ==
LOC: VRC 18:37
PROC: F07Z5ZZ Bed Mobility Treatment (ICD-10-PCS; principal; 2018-04-11)
PROC: F08Z2ZZ Grooming/Personal Hygiene Treatment (ICD-10-PCS; 2018-04-11)
PROC: F06Z6ZZ Communicative/Cognitive Integration Skills Treatment (ICD-10-PCS; 2018-04-11)
DX: I69.354 Hemiplegia and hemiparesis following cerebral infarction affecting left non-dominant side (principal); N17.9 Acute kidney failure, unspecified; R53.1 Weakness; J44.9 Chronic obstructive pulmonary disease, unspecified; K25.9 Gastric ulcer, unspecified as acute or chronic, without hemorrhage or perforation; D64.89 Other specified anemias; E11.9 Type 2 diabetes mellitus without complications; F11.10 Opioid abuse, uncomplicated; D64.9 Anemia, unspecified; N40.0 Benign prostatic hyperplasia without lower urinary tract symptoms; I11.0 Hypertensive heart disease with heart failure; I50.9 Heart failure, unspecified; Z79.4 Long term (current) use of insulin; N20.0 Calculus of kidney; E83.42 Hypomagnesemia; F06.31 Mood disorder due to known physiological condition with depressive features
CPT/HCPCS: 74018; 76700; 80048; 80053; 81001; 82962; 83036; 83735; 84100; 85025; 87081; 87086; 87400; 92507; 92523; 94640; 94664; 97110; 97112; 97116; 97163; 97167; 97530; 97535; 97542

== ENCOUNTER 2018-08-02 11:21 | Inpatient (IN) | payer MEDICARE, OTHER ==
[2018-08-02] MEDS: SODIUM CHLORIDE 0.9% 1L BAG IV* (11:45)
[2018-08-02] MEDS ORDERED: NALOXONE (0.4 MG/ML) INJ (12:11)
[2018-08-02] MEDS: NALOXONE (0.4 MG/ML) INJ IV ×2 (12:13→12:51)
[2018-08-02 12:22] LABS: ADD MAN DIFF? NO
[2018-08-02 12:23] LABS: WHITE BLOOD COUNT 16.4 10^3/ul (4.8-10.8)
[2018-08-02 12:23] LABS: BASOPHIL # 0.1 10^3/ul (0.0-0.1); BASOPHILS % 0.3 % (0.0-2.0); EOSINOPHILS # 0.1 10^3/ul (0.0-0.5); EOSINOPHILS % 0.5 % (0.0-7.0); HEMATOCRIT 27.6 % (42.0-52.0); HEMOGLOBIN 8.7 g/dl (14.0-18.0); LYMPHOCYTES # 1.8 10^3/ul (0.8-2.9); LYMPHOCYTES % 10.9 % (15.0-51.0); MEAN CORPUSCULAR HEMOGLOBIN 24.3 pg (29.0-33.0); MEAN CORPUSCULAR HGB CONC 31.5 g/dl (32.0-37.0); MEAN CORPUSCULAR VOLUME 77.1 fl (82.0-101.0); MEAN PLATELET VOLUME 9.7 fl (7.4-10.4); MONOCYTE # 1.3 10^3/ul (0.3-0.9); MONOCYTES % 8.1 % (0.0-11.0); NEUTROPHILS % 79.2 % (39.0-77.0); PLATELET COUNT 608 10^3/UL (140-415); RED BLOOD COUNT 3.58 10^6/ul (4.70-6.10); RED CELL DISTRIBUTION WIDTH 20.1 % (11.5-14.5)
[2018-08-02 12:40] LABS: ALANINE AMINOTRANSFERASE 14 IU/L (13-69); ALKALINE PHOSPHATASE 42 IU/L (42-121); ANION GAP 13 (5-13); ASPARTATE AMINO TRANSFERASE 30 IU/L (15-46); BILIRUBIN,INDIRECT 0.1 mg/dl (0-1.1); BILIRUBIN,TOTAL 0.1 mg/dl (0.2-1.3); BLOOD UREA NITROGEN 40 mg/dl (7-20); CALCIUM 9.3 mg/dl (8.4-10.2); CARBON DIOXIDE 32 mmol/L (21-31); CHLORIDE 93 mmol/L (97-110); CREATININE 2.17 mg/dl (0.61-1.24); Estimated GFR 37 mL/min (>60); GLUCOSE 169 mg/dl (70-220); SODIUM 138 mmol/L (135-144); TOTAL PROTEIN 6.3 g/dl (6.1-8.1)
[2018-08-02 12:51] LABS: TROPONIN-I < 0.012 ng/ml (0.000-0.120)
[2018-08-02 12:53] LABS: INR 0.97
[2018-08-02 12:54] LABS: PARTIAL THROMBOPLASTIN TIME 32.8 Sec (23.0-35.0)
[2018-08-02 13:12] LABS: LACTIC ACID 3.7 mmol/L (0.5-2.0)
[2018-08-02] MEDS: PIPER-TAZO 2.25 GM (PMX) 50 ML IVPB (13:43)
[2018-08-02] MEDS: SOD CHLORIDE 0.9% 1,860 ML IV (13:50)
[2018-08-02] MEDS: VANCOMYCIN 1 GM (PMX) 250 ML IVPB (14:48)
[2018-08-02 14:49] LABS: LACTIC ACID 2.9 mmol/L (0.5-2.0)
[2018-08-02] MEDS ORDERED: VANCOMYCIN IV PER PHARMACY XX (17:00)
[2018-08-02] MEDS ORDERED: NACL 0.9% 3 ML SYG IV (17:00)
[2018-08-02 17:06] LABS: CREATINE KINASE 97 IU/L (23-200)
[2018-08-02 17:28] LABS: ADD UMIC YES; UR ASCORBIC ACID NEGATIVE (NEGATIVE); UR BACTERIA FEW /HPF (NONE SEEN); UR BILIRUBIN (Dip) NEGATIVE (NEGATIVE); UR BLOOD (Dip) 1+ mg/dL (NEGATIVE); UR BUDDING YEAST MANY /HPF (NONE SEEN); UR CLARITY TURBID (CLEAR); UR COLOR AMBER (YELLOW); UR GLUCOSE (Dip) NEGATIVE (NEGATIVE); UR HYALINE CAST FEW /HPF (NONE SEEN); UR KETONES (Dip) TRACE mg/dL (NEGATIVE); UR LEUKOCYTE ESTERASE (Dip) 3+ Leu/ul (NEGATIVE); UR MUCUS FEW /HPF (NONE SEEN); UR NITRITE (Dip) NEGATIVE (NEGATIVE); UR RBC 18 /HPF (0-5); UR SPECIFIC GRAVITY (Dip) 1.019 (1.003-1.030); UR SQUAMOUS EPITHELIAL CELL FEW /HPF (FEW); UR TOTAL PROTEIN (Dip) 1+ mg/dl (NEGATIVE); UR UROBILINOGEN (Dip) NEGATIVE (NEGATIVE); UR WBC > 182 /HPF (0-5)
[2018-08-02] MEDS: MINERAL OIL 133 ML ENEMA PR (17:30)
[2018-08-02] MEDS ORDERED: GLUCOSE GEL 15 GRAM TUBE PO ×2 (18:30)
[2018-08-02] MEDS ORDERED: GLUCAGON 1 MG INJ IM (18:30)
[2018-08-02] MEDS ORDERED: GLUCOSE GEL 15 GRAM TUBE BUCCAL (18:30)
[2018-08-02] MEDS ORDERED: DEXTROSE 50% 50 ML SYRINGE IV ×2 (18:30)
[2018-08-02 19:01] LABS: AMPHETAMINE/METHAMPHETAMINE Negative (NEGATIVE); BARBITURATES Negative (NEGATIVE); BENZODIAZEPINES Negative (NEGATIVE); CANNABINOIDS Positive (NEGATIVE); COCAINE Negative (NEGATIVE)
[2018-08-02 19:05] LABS: OPIATES Positive (NEGATIVE)
[2018-08-02] MEDS: MAGNESIUM CITRATE 300 ML BTL PO (19:35)
[2018-08-02] MEDS: INSULIN ASPART [NOVOLOG] 3 ML PEN SC ×2 (19:40→21:00)
[2018-08-02] MEDS: PANTOPRAZOLE (EC) 40 MG TAB PO (19:48)
[2018-08-02] MEDS: PIPER-TAZO 3.375 GM IV (PMX) 100 ML IVPB ×2 (19:48→23:58)
[2018-08-02] MEDS: SOD CHLORIDE 0.9% 1,000 ML IV (19:48)
[2018-08-02] MEDS: traZODone 50 MG TAB PO (21:21)
[2018-08-02] MEDS: DOCUSATE SODIUM 100 MG CAP PO (21:21)
[2018-08-02] MEDS: TAMSULOSIN (SR) 0.4 MG CAP PO (21:21)
[2018-08-02] MEDS: METOPROLOL 25 MG TAB PO (21:22)
[2018-08-02] MEDS: ATORVASTATIN 80 MG TAB PO (21:23)
[2018-08-03] MEDS: ACCU-CHEK XX (02:00)
[2018-08-03] MEDS: PIPER-TAZO 3.375 GM IV (PMX) 100 ML IVPB ×4 (05:33→23:03)
[2018-08-03] MEDS: PANTOPRAZOLE (EC) 40 MG TAB PO ×2 (05:34→17:04)
[2018-08-03] MEDS: INSULIN ASPART [NOVOLOG] 3 ML PEN SC ×4 (08:07→20:57)
[2018-08-03] MEDS: SOD CHLORIDE 0.9% 1,000 ML IV ×2 (08:20→21:50)
[2018-08-03] MEDS: DOCUSATE SODIUM 100 MG CAP PO ×2 (08:45→20:45)
[2018-08-03] MEDS: CLOPIDOGREL 75 MG TAB PO (08:45)
[2018-08-03] MEDS: FINASTERIDE 5 MG TAB PO (08:45)
[2018-08-03] MEDS: METOPROLOL 25 MG TAB PO ×2 (08:45→20:46)
[2018-08-03] MEDS: MONTELUKAST 10 MG TAB PO (08:46)
[2018-08-03] MEDS: FLUTICASONE/VILANTEROL 100-25 INH (08:47)
[2018-08-03 09:15] LABS: ADD MAN DIFF? NO; HAAIG REFLEX REFLEX FILED
[2018-08-03 09:18] LABS: WHITE BLOOD COUNT 14.8 10^3/ul (4.8-10.8)
[2018-08-03 09:18] LABS: BASOPHIL # 0.1 10^3/ul (0.0-0.1); BASOPHILS % 0.5 % (0.0-2.0); EOSINOPHILS # 0.2 10^3/ul (0.0-0.5); EOSINOPHILS % 1.1 % (0.0-7.0); HEMATOCRIT 27.6 % (42.0-52.0); HEMOGLOBIN 8.2 g/dl (14.0-18.0); LYMPHOCYTES # 1.7 10^3/ul (0.8-2.9); LYMPHOCYTES % 11.4 % (15.0-51.0); MEAN CORPUSCULAR HEMOGLOBIN 23.6 pg (29.0-33.0); MEAN CORPUSCULAR HGB CONC 29.7 g/dl (32.0-37.0); MEAN CORPUSCULAR VOLUME 79.5 fl (82.0-101.0); MEAN PLATELET VOLUME 9.4 fl (7.4-10.4); MONOCYTE # 1.4 10^3/ul (0.3-0.9); MONOCYTES % 9.5 % (0.0-11.0); NEUTROPHIL # 11.3 10^3/ul (1.6-7.5); NEUTROPHILS % 76.6 % (39.0-77.0); PLATELET COUNT 594 10^3/UL (140-415); RED BLOOD COUNT 3.47 10^6/ul (4.70-6.10)
[2018-08-03 09:36] LABS: ALANINE AMINOTRANSFERASE 14 IU/L (13-69); ALBUMIN 2.9 g/dl (3.3-4.9); ALBUMIN/GLOBULIN RATIO 0.85; ALKALINE PHOSPHATASE 53 IU/L (42-121); ANION GAP 9 (5-13); ASPARTATE AMINO TRANSFERASE 28 IU/L (15-46); BLOOD UREA NITROGEN 24 mg/dl (7-20); CALCIUM 8.9 mg/dl (8.4-10.2); CARBON DIOXIDE 35 mmol/L (21-31); CHLORIDE 101 mmol/L (97-110); CREATININE 0.72 mg/dl (0.61-1.24); Estimated GFR > 60 mL/min (>60); GLUCOSE 159 mg/dl (70-220); MAGNESIUM 2.2 mg/dl (1.7-2.5); POTASSIUM 4.7 mmol/L (3.5-5.1); SODIUM 145 mmol/L (135-144); TOTAL PROTEIN 6.3 g/dl (6.1-8.1)
[2018-08-03 09:48] LABS: HEMOGLOBIN A1C 6.4 % (0-5.9)
[2018-08-03 10:20] LABS: HEPATITIS B SURFACE ANTIGEN NEGATIVE (NEGATIVE)
[2018-08-03 10:38] LABS: HEPATITIS B CORE ANTIBODY REACTIVE (NEGATIVE)
[2018-08-03 10:58] LABS: HEPATITIS C VIRAL ANTIBODY REACTIVE (NEGATIVE)
[2018-08-03] MEDS: hydrALAzine 20 MG INJ IV (11:55)
[2018-08-03] MEDS: VANCOMYCIN 1 GM in 250 ML IVPB (13:57)
[2018-08-03] MEDS: AMLODIPINE 10 MG TAB PO (15:54)
[2018-08-03 18:04] LABS: ADD UMIC YES; UR ASCORBIC ACID NEGATIVE (NEGATIVE); UR BILIRUBIN (Dip) NEGATIVE (NEGATIVE); UR BLOOD (Dip) NEGATIVE (NEGATIVE); UR CLARITY CLEAR (CLEAR); UR COLOR YELLOW (YELLOW); UR GLUCOSE (Dip) NEGATIVE (NEGATIVE); UR KETONES (Dip) NEGATIVE (NEGATIVE); UR LEUKOCYTE ESTERASE (Dip) 2+ Leu/ul (NEGATIVE); UR NITRITE (Dip) NEGATIVE (NEGATIVE); UR RBC 4 /HPF (0-5); UR SPECIFIC GRAVITY (Dip) 1.014 (1.003-1.030); UR TOTAL PROTEIN (Dip) NEGATIVE (NEGATIVE); UR UROBILINOGEN (Dip) NEGATIVE (NEGATIVE); UR WBC 100 /HPF (0-5)
[2018-08-03 18:13] LABS: CREATININE,URINE RANDOM 49.22 mg/dl (20-370)
[2018-08-03 18:13] LABS: SODIUM,URINE RANDOM 139 mmol/L (30-90)
[2018-08-03] MEDS: ATORVASTATIN 80 MG TAB PO (20:45)
[2018-08-03] MEDS: TAMSULOSIN (SR) 0.4 MG CAP PO (20:45)
[2018-08-03] MEDS: traZODone 50 MG TAB PO (20:46)
[2018-08-03] MEDS: HEPARIN 5,000 UNIT/1 ML VIAL SC (20:56)
[2018-08-03] MEDS: morphine 2 MG INJ IV (23:24)
[2018-08-04] MEDS: ACETAMINOPHEN 325 MG TAB PO ×3 (01:16→20:50)
[2018-08-04] MEDS: ACCU-CHEK XX (01:27)
[2018-08-04] MEDS ORDERED: VANCOMYCIN 1 GM in 250 ML IVPB (03:00)
[2018-08-04] MEDS: PANTOPRAZOLE (EC) 40 MG TAB PO (05:39)
[2018-08-04] MEDS: PIPER-TAZO 3.375 GM IV (PMX) 100 ML IVPB ×4 (05:40→23:03)
[2018-08-04 06:58] LABS: WHITE BLOOD COUNT 13.1 10^3/ul (4.8-10.8)
[2018-08-04 06:58] LABS: ABNORMAL IP MESSAGE 1; HEMATOCRIT 20.3 % (42.0-52.0); MEAN CORPUSCULAR HEMOGLOBIN 23.5 pg (29.0-33.0); MEAN CORPUSCULAR HGB CONC 29.1 g/dl (32.0-37.0); MEAN CORPUSCULAR VOLUME 80.9 fl (82.0-101.0); MEAN PLATELET VOLUME 9.4 fl (7.4-10.4); PLATELET COUNT 454 10^3/UL (140-415); POSITIVE DIFF @See below; RED BLOOD COUNT 2.51 10^6/ul (4.70-6.10); RED CELL DISTRIBUTION WIDTH 19.9 % (11.5-14.5)
[2018-08-04 07:03] LABS: ADD MAN DIFF? YES; HEMOGLOBIN 5.9 g/dl (14.0-18.0); PATH REVIEW? YES
[2018-08-04 07:28] LABS: ANION GAP 8 (5-13); BLOOD UREA NITROGEN 24 mg/dl (7-20); CALCIUM 8.2 mg/dl (8.4-10.2); CARBON DIOXIDE 30 mmol/L (21-31); CHLORIDE 106 mmol/L (97-110); CREATININE 0.56 mg/dl (0.61-1.24); Estimated GFR > 60 mL/min (>60); GLUCOSE 141 mg/dl (70-220); MAGNESIUM 1.8 mg/dl (1.7-2.5); POTASSIUM 4.2 mmol/L (3.5-5.1); SODIUM 144 mmol/L (135-144)
[2018-08-04 07:54] LABS: HEMATOCRIT 20.3 % (42.0-52.0)
[2018-08-04] MEDS: INSULIN ASPART [NOVOLOG] 3 ML PEN SC ×5 (07:56→20:33)
[2018-08-04 07:57] LABS: HEMOGLOBIN 6.1 g/dl (14.0-18.0)
[2018-08-04 08:01] LABS: ANISOCYTOSIS 2+ (0-0); BURR CELLS 2+ (0-0); EOSINOPHILS % (M) 1 % (0-7); HYPOCHROMASIA 2+ (0-0); LYMPHOCYTES #M 2.3 10^3/ul (0.8-2.9); LYMPHOCYTES % (M) 18 % (15-51); MICROCYTOSIS 2+ (0-0); MONOCYTE #M 0.3 10^3/ul (0.3-0.9); MONOCYTES % (M) 3 % (0-11); PLATELET ESTIMATE NORMAL; POIKILOCYTOSIS 3+ (0-0); POLYCHROMASIA 2+ (0-0); PROMYELOCYTES #M 0.1 10^3/ul (0-0); PROMYELOCYTES % (M) 1 % (0-0); SEGMENTED NEUTROPHILS (M) % 77 % (39-77); SMUDGE%M 2 % (0-0)
[2018-08-04] MEDS: FINASTERIDE 5 MG TAB PO (08:26)
[2018-08-04] MEDS: FLUTICASONE/VILANTEROL 100-25 INH (08:26)
[2018-08-04] MEDS: METOPROLOL 25 MG TAB PO ×2 (08:28→20:50)
[2018-08-04] MEDS: MONTELUKAST 10 MG TAB PO (08:28)
[2018-08-04] MEDS: DOCUSATE SODIUM 100 MG CAP PO ×2 (08:28→20:53)
[2018-08-04] MEDS: AMLODIPINE 10 MG TAB PO (08:29)
[2018-08-04] MEDS: CLOPIDOGREL 75 MG TAB PO (08:29)
[2018-08-04] MEDS: HEPARIN 5,000 UNIT/1 ML VIAL SC (08:32)
[2018-08-04] MEDS: NEUTRA-PHOS 250 MG PACKET PO (11:16)
[2018-08-04] MEDS: SOD CHLORIDE 0.9% 1,000 ML IV ×2 (11:54→23:02)
[2018-08-04] MEDS: SOD CHLORIDE 0.9% 250 ML IV (13:20)
[2018-08-04] MEDS: morphine 2 MG INJ IV ×2 (13:55→21:42)
[2018-08-04 16:20] LABS: IMMEDIATE SPIN CROSSMATCH 1 4
[2018-08-04] MEDS: PANTOPRAZOLE 40 MG INJ IV (17:52)
[2018-08-04] MEDS: ATORVASTATIN 80 MG TAB PO (20:50)
[2018-08-04] MEDS: traZODone 50 MG TAB PO (20:50)
[2018-08-04] MEDS: TAMSULOSIN (SR) 0.4 MG CAP PO (20:50)
[2018-08-04 23:31] LABS: HEMATOCRIT 26.3 % (42.0-52.0); HEMOGLOBIN 8.4 g/dl (14.0-18.0)
[2018-08-05] MEDS: ACCU-CHEK XX (01:29)
[2018-08-05] MEDS: PANTOPRAZOLE 40 MG INJ IV ×2 (05:22→19:15)
[2018-08-05] MEDS: PIPER-TAZO 3.375 GM IV (PMX) 100 ML IVPB ×3 (05:24→18:00)
[2018-08-05 07:16] LABS: ADD MAN DIFF? NO
[2018-08-05 07:21] LABS: BASOPHIL # 0.1 10^3/ul (0.0-0.1); BASOPHILS % 0.7 % (0.0-2.0); EOSINOPHILS # 0.3 10^3/ul (0.0-0.5); EOSINOPHILS % 2.1 % (0.0-7.0); HEMATOCRIT 27.3 % (42.0-52.0); HEMOGLOBIN 8.5 g/dl (14.0-18.0); LYMPHOCYTES # 2.2 10^3/ul (0.8-2.9); LYMPHOCYTES % 18.4 % (15.0-51.0); MEAN CORPUSCULAR HEMOGLOBIN 25.3 pg (29.0-33.0); MEAN CORPUSCULAR HGB CONC 31.1 g/dl (32.0-37.0); MEAN CORPUSCULAR VOLUME 81.3 fl (82.0-101.0); MEAN PLATELET VOLUME 9.3 fl (7.4-10.4); MONOCYTE # 1.1 10^3/ul (0.3-0.9); MONOCYTES % 9.5 % (0.0-11.0); NEUTROPHIL # 8.1 10^3/ul (1.6-7.5); NEUTROPHILS % 68.7 % (39.0-77.0); PLATELET COUNT 457 10^3/UL (140-415); RED BLOOD COUNT 3.36 10^6/ul (4.70-6.10); RED CELL DISTRIBUTION WIDTH 18.7 % (11.5-14.5)
[2018-08-05 07:21] LABS: WHITE BLOOD COUNT 11.8 10^3/ul (4.8-10.8)
[2018-08-05 07:41] LABS: ANION GAP 6 (5-13); BLOOD UREA NITROGEN 15 mg/dl (7-20); CALCIUM 8.5 mg/dl (8.4-10.2); CARBON DIOXIDE 27 mmol/L (21-31); CHLORIDE 108 mmol/L (97-110); CREATININE 0.51 mg/dl (0.61-1.24); Estimated GFR > 60 mL/min (>60); GLUCOSE 96 mg/dl (70-220); MAGNESIUM 1.6 mg/dl (1.7-2.5); PHOSPHORUS 2.7 mg/dl (2.5-4.9); POTASSIUM 4.3 mmol/L (3.5-5.1); SODIUM 141 mmol/L (135-144)
[2018-08-05] MEDS: INSULIN ASPART [NOVOLOG] 3 ML PEN SC ×4 (07:55→20:25)
[2018-08-05] MEDS: METOPROLOL 25 MG TAB PO ×2 (09:00→20:34)
[2018-08-05] MEDS: FLUTICASONE/VILANTEROL 100-25 INH (09:53)
[2018-08-05] MEDS: DOCUSATE SODIUM 100 MG CAP PO ×2 (09:53→20:18)
[2018-08-05] MEDS: MONTELUKAST 10 MG TAB PO (09:54)
[2018-08-05] MEDS: FINASTERIDE 5 MG TAB PO (09:54)
[2018-08-05] MEDS: AMLODIPINE 10 MG TAB PO (09:54)
[2018-08-05] MEDS: CLOPIDOGREL 75 MG TAB PO (09:54)
[2018-08-05] MEDS: morphine 2 MG INJ IV ×3 (10:09→19:15)
[2018-08-05] MEDS: MAGNESIUM SULFATE 2 GM/50 ML 50 ML IVPB (10:15)
[2018-08-05 14:50] LABS: CREATININE, RANDOM URINE 50 mg/dL (20-320); MICROALBUMIN/CREATININE RATIO 80 (<30)
[2018-08-05] MEDS: SOD CHLORIDE 0.9% 1,000 ML IV ×2 (16:30→20:17)
[2018-08-05] MEDS: SUCRALFATE (100 MG/ML) 10ML CUP PO ×2 (17:00→20:18)
[2018-08-05] MEDS: FLUCONAZOLE 200 MG (PMX) 100 ML IVPB (20:16)
[2018-08-05] MEDS: traZODone 50 MG TAB PO (20:18)
[2018-08-05] MEDS: TAMSULOSIN (SR) 0.4 MG CAP PO (20:18)
[2018-08-05] MEDS: ATORVASTATIN 80 MG TAB PO (20:22)
[2018-08-06] MEDS: morphine 2 MG INJ IV ×3 (00:07→18:04)
[2018-08-06] MEDS: PIPER-TAZO 3.375 GM IV (PMX) 100 ML IVPB ×4 (00:07→20:40)
[2018-08-06] MEDS: ACCU-CHEK XX (02:00)
[2018-08-06] MEDS: hydrALAzine 20 MG INJ IV ×2 (04:25→12:26)
[2018-08-06] MEDS: PANTOPRAZOLE 40 MG INJ IV ×2 (06:26→17:59)
[2018-08-06] MEDS: INSULIN ASPART [NOVOLOG] 3 ML PEN SC ×4 (07:55→20:38)
[2018-08-06 08:59] LABS: ADD MAN DIFF? NO
[2018-08-06 09:03] LABS: BASOPHIL # 0.1 10^3/ul (0.0-0.1); BASOPHILS % 0.7 % (0.0-2.0); EOSINOPHILS # 0.3 10^3/ul (0.0-0.5); EOSINOPHILS % 2.8 % (0.0-7.0); HEMATOCRIT 28.5 % (42.0-52.0); HEMOGLOBIN 9.2 g/dl (14.0-18.0); LYMPHOCYTES # 1.7 10^3/ul (0.8-2.9); LYMPHOCYTES % 16.2 % (15.0-51.0); MEAN CORPUSCULAR HGB CONC 32.3 g/dl (32.0-37.0); MEAN CORPUSCULAR VOLUME 80.5 fl (82.0-101.0); MEAN PLATELET VOLUME 9.2 fl (7.4-10.4); MONOCYTES % 9.6 % (0.0-11.0); NEUTROPHIL # 7.3 10^3/ul (1.6-7.5); PLATELET COUNT 510 10^3/UL (140-415); RED BLOOD COUNT 3.54 10^6/ul (4.70-6.10)
[2018-08-06 09:03] LABS: WHITE BLOOD COUNT 10.4 10^3/ul (4.8-10.8)
[2018-08-06] MEDS: SUCRALFATE (100 MG/ML) 10ML CUP PO ×4 (09:12→20:40)
[2018-08-06] MEDS: FLUTICASONE/VILANTEROL 100-25 INH (09:12)
[2018-08-06] MEDS: DOCUSATE SODIUM 100 MG CAP PO ×2 (09:12→20:38)
[2018-08-06] MEDS: MONTELUKAST 10 MG TAB PO (09:12)
[2018-08-06] MEDS: FINASTERIDE 5 MG TAB PO (09:12)
[2018-08-06] MEDS: AMLODIPINE 10 MG TAB PO (09:13)
[2018-08-06] MEDS: METOPROLOL 25 MG TAB PO ×2 (09:17→20:38)
[2018-08-06 09:24] LABS: ANION GAP 10 (5-13); BLOOD UREA NITROGEN 10 mg/dl (7-20); CALCIUM 8.6 mg/dl (8.4-10.2); CARBON DIOXIDE 26 mmol/L (21-31); CHLORIDE 104 mmol/L (97-110); CREATININE 0.53 mg/dl (0.61-1.24); Estimated GFR > 60 mL/min (>60); GLUCOSE 94 mg/dl (70-220); SODIUM 140 mmol/L (135-144)
[2018-08-06] MEDS: FENTAnyl 50 MCG/ML VIAL (16:14)
[2018-08-06] MEDS: LIDOCAINE 2% (SDV) 5 ML INJ (16:15)
[2018-08-06] MEDS: ETOMIDATE 20 MG INJ (16:15)
[2018-08-06] MEDS ORDERED: ALBUTEROL 0.083% (NEB) 2.5 MG/3 ML AMP HHN (16:30)
[2018-08-06] MEDS ORDERED: ONDANSETRON 4 MG INJ IV (16:30)
[2018-08-06] MEDS: SOD CHLORIDE 0.9% 1,000 ML IV (17:47)
[2018-08-06] MEDS: FLUCONAZOLE 200 MG (PMX) 100 ML IVPB (19:27)
[2018-08-06] MEDS: ATORVASTATIN 80 MG TAB PO (20:38)
[2018-08-06] MEDS: TAMSULOSIN (SR) 0.4 MG CAP PO (20:38)
[2018-08-06] MEDS: traZODone 50 MG TAB PO (20:38)
[2018-08-07] MEDS: PIPER-TAZO 3.375 GM IV (PMX) 100 ML IVPB ×5 (00:49→23:19)
[2018-08-07] MEDS: hydrALAzine 20 MG INJ IV (00:54)
[2018-08-07] MEDS: ACCU-CHEK XX (01:50)
[2018-08-07] MEDS: PANTOPRAZOLE 40 MG INJ IV ×2 (05:49→17:14)
[2018-08-07 06:11] LABS: ADD MAN DIFF? NO
[2018-08-07 06:16] LABS: BASOPHIL # 0.1 10^3/ul (0.0-0.1); BASOPHILS % 0.9 % (0.0-2.0); EOSINOPHILS # 0.4 10^3/ul (0.0-0.5); EOSINOPHILS % 3.3 % (0.0-7.0); HEMATOCRIT 27.8 % (42.0-52.0); LYMPHOCYTES # 1.6 10^3/ul (0.8-2.9); LYMPHOCYTES % 14.1 % (15.0-51.0); MEAN CORPUSCULAR HEMOGLOBIN 25.4 pg (29.0-33.0); MEAN CORPUSCULAR HGB CONC 32.4 g/dl (32.0-37.0); MEAN CORPUSCULAR VOLUME 78.5 fl (82.0-101.0); MONOCYTE # 1.1 10^3/ul (0.3-0.9); MONOCYTES % 9.5 % (0.0-11.0); NEUTROPHIL # 8.3 10^3/ul (1.6-7.5); NEUTROPHILS % 71.7 % (39.0-77.0); PLATELET COUNT 533 10^3/UL (140-415); RED BLOOD COUNT 3.54 10^6/ul (4.70-6.10); RED CELL DISTRIBUTION WIDTH 19.5 % (11.5-14.5)
[2018-08-07 06:16] LABS: WHITE BLOOD COUNT 11.6 10^3/ul (4.8-10.8)
[2018-08-07 06:51] LABS: ANION GAP 8 (5-13); BLOOD UREA NITROGEN 10 mg/dl (7-20); CALCIUM 8.7 mg/dl (8.4-10.2); CARBON DIOXIDE 24 mmol/L (21-31); CHLORIDE 105 mmol/L (97-110); CREATININE 0.53 mg/dl (0.61-1.24); Estimated GFR > 60 mL/min (>60); GLUCOSE 115 mg/dl (70-220); POTASSIUM 3.6 mmol/L (3.5-5.1); SODIUM 137 mmol/L (135-144)
[2018-08-07] MEDS: INSULIN ASPART [NOVOLOG] 3 ML PEN SC ×4 (07:55→21:00)
[2018-08-07] MEDS: FLUTICASONE/VILANTEROL 100-25 INH (08:44)
[2018-08-07] MEDS: SUCRALFATE (100 MG/ML) 10ML CUP PO ×4 (08:45→21:49)
[2018-08-07] MEDS: DOCUSATE SODIUM 100 MG CAP PO ×2 (08:45→21:49)
[2018-08-07] MEDS: FINASTERIDE 5 MG TAB PO (08:46)
[2018-08-07] MEDS: METOPROLOL 25 MG TAB PO ×2 (08:46→21:50)
[2018-08-07] MEDS: MONTELUKAST 10 MG TAB PO (08:46)
[2018-08-07] MEDS: AMLODIPINE 10 MG TAB PO (08:46)
[2018-08-07] MEDS: morphine 2 MG INJ IV ×3 (08:47→21:42)
[2018-08-07] MEDS: CLOPIDOGREL 75 MG TAB PO (09:00)
[2018-08-07] MEDS: ONDANSETRON 4 MG INJ IV (16:08)
[2018-08-07] MEDS: FLUCONAZOLE 200 MG (PMX) 100 ML IVPB (18:04)
[2018-08-07 21:17] LABS: HEMATOCRIT 19.6 % (42.0-52.0)
[2018-08-07 21:25] LABS: HEMOGLOBIN 6.3 g/dl (14.0-18.0)
[2018-08-07] MEDS: TAMSULOSIN (SR) 0.4 MG CAP PO (21:49)
[2018-08-07] MEDS: ATORVASTATIN 80 MG TAB PO (21:49)
[2018-08-07] MEDS: traZODone 50 MG TAB PO (21:49)
[2018-08-08] MEDS: ACETAMINOPHEN 500 MG TAB PO (01:30)
[2018-08-08] MEDS: ACCU-CHEK XX (01:46)
[2018-08-08] MEDS: morphine 2 MG INJ IV ×4 (01:56→21:01)
[2018-08-08 02:13] LABS: IMMEDIATE SPIN CROSSMATCH 1 5
[2018-08-08] MEDS: SOD CHLORIDE 0.9% 1,000 ML IV (05:35)
[2018-08-08] MEDS: PIPER-TAZO 3.375 GM IV (PMX) 100 ML IVPB ×3 (05:55→17:09)
[2018-08-08] MEDS: PANTOPRAZOLE 40 MG INJ IV ×2 (05:55→17:10)
[2018-08-08 07:35] LABS: ADD MAN DIFF? NO
[2018-08-08 07:38] LABS: ABNORMAL IP MESSAGE 1; BASOPHILS % 0.4 % (0.0-2.0); EOSINOPHILS # 0.2 10^3/ul (0.0-0.5); EOSINOPHILS % 1.5 % (0.0-7.0); HEMATOCRIT 20.8 % (42.0-52.0); LYMPHOCYTES # 1.9 10^3/ul (0.8-2.9); LYMPHOCYTES % 17.7 % (15.0-51.0); MEAN CORPUSCULAR HEMOGLOBIN 26.7 pg (29.0-33.0); MEAN CORPUSCULAR HGB CONC 32.7 g/dl (32.0-37.0); MEAN CORPUSCULAR VOLUME 81.6 fl (82.0-101.0); MEAN PLATELET VOLUME 9.5 fl (7.4-10.4); MONOCYTE # 1.4 10^3/ul (0.3-0.9); MONOCYTES % 12.9 % (0.0-11.0); NEUTROPHIL # 6.9 10^3/ul (1.6-7.5); NEUTROPHILS % 66.4 % (39.0-77.0); PLATELET COUNT 359 10^3/UL (140-415); POSITIVE DIFF @See below; RED BLOOD COUNT 2.55 10^6/ul (4.70-6.10); RED CELL DISTRIBUTION WIDTH 17.9 % (11.5-14.5)
[2018-08-08 07:38] LABS: WHITE BLOOD COUNT 10.4 10^3/ul (4.8-10.8)
[2018-08-08 07:46] LABS: HEMOGLOBIN 6.8 g/dl (14.0-18.0)
[2018-08-08 08:07] LABS: ANION GAP 5 (5-13); BLOOD UREA NITROGEN 19 mg/dl (7-20); CALCIUM 8.1 mg/dl (8.4-10.2); CARBON DIOXIDE 24 mmol/L (21-31); CHLORIDE 108 mmol/L (97-110); CREATININE 0.52 mg/dl (0.61-1.24); Estimated GFR > 60 mL/min (>60); GLUCOSE 113 mg/dl (70-220); MAGNESIUM 1.4 mg/dl (1.7-2.5); POTASSIUM 3.5 mmol/L (3.5-5.1); SODIUM 137 mmol/L (135-144)
[2018-08-08] MEDS: DOCUSATE SODIUM 100 MG CAP PO ×3 (08:27→21:01)
[2018-08-08] MEDS: METOPROLOL 25 MG TAB PO ×2 (08:27→21:02)
[2018-08-08] MEDS: MONTELUKAST 10 MG TAB PO (08:27)
[2018-08-08] MEDS: FINASTERIDE 5 MG TAB PO (08:27)
[2018-08-08] MEDS: AMLODIPINE 10 MG TAB PO (08:27)
[2018-08-08] MEDS: SUCRALFATE (100 MG/ML) 10ML CUP PO ×4 (08:27→21:01)
[2018-08-08] MEDS: INSULIN ASPART [NOVOLOG] 3 ML PEN SC ×4 (08:49→21:00)
[2018-08-08] MEDS: FLUTICASONE/VILANTEROL 100-25 INH ×2 (09:00→09:56)
[2018-08-08] MEDS: FLUCONAZOLE 200 MG (PMX) 100 ML IVPB (17:10)
[2018-08-08 19:09] LABS: HEMOGLOBIN 9.4 g/dl (14.0-18.0)
[2018-08-08] MEDS: traZODone 50 MG TAB PO (21:01)
[2018-08-08] MEDS: ATORVASTATIN 80 MG TAB PO (21:02)
[2018-08-08] MEDS: TAMSULOSIN (SR) 0.4 MG CAP PO (21:02)
[2018-08-09 00:44] LABS: HEMATOCRIT 25.9 % (42.0-52.0); HEMOGLOBIN 8.6 g/dl (14.0-18.0)
[2018-08-09] MEDS: ACCU-CHEK XX (01:15)
[2018-08-09] MEDS: PIPER-TAZO 3.375 GM IV (PMX) 100 ML IVPB ×5 (05:52→23:22)
[2018-08-09] MEDS: PANTOPRAZOLE 40 MG INJ IV ×2 (05:52→17:11)
[2018-08-09] MEDS: SOD CHLORIDE 0.9% 1,000 ML IV (05:53)
[2018-08-09 07:17] LABS: ADD MAN DIFF? NO
[2018-08-09 07:18] LABS: WHITE BLOOD COUNT 7.9 10^3/ul (4.8-10.8)
[2018-08-09 07:18] LABS: BASOPHIL # 0.1 10^3/ul (0.0-0.1); BASOPHILS % 0.9 % (0.0-2.0); EOSINOPHILS # 0.4 10^3/ul (0.0-0.5); EOSINOPHILS % 4.8 % (0.0-7.0); HEMATOCRIT 25.9 % (42.0-52.0); HEMOGLOBIN 8.6 g/dl (14.0-18.0); LYMPHOCYTES # 2.1 10^3/ul (0.8-2.9); LYMPHOCYTES % 25.9 % (15.0-51.0); MEAN CORPUSCULAR HEMOGLOBIN 27.3 pg (29.0-33.0); MEAN CORPUSCULAR HGB CONC 33.2 g/dl (32.0-37.0); MEAN CORPUSCULAR VOLUME 82.2 fl (82.0-101.0); MEAN PLATELET VOLUME 9.6 fl (7.4-10.4); MONOCYTE # 1.3 10^3/ul (0.3-0.9); MONOCYTES % 16.3 % (0.0-11.0); PLATELET COUNT 321 10^3/UL (140-415); RED BLOOD COUNT 3.15 10^6/ul (4.70-6.10); RED CELL DISTRIBUTION WIDTH 17.8 % (11.5-14.5)
[2018-08-09 07:41] LABS: ANION GAP 7 (5-13); BLOOD UREA NITROGEN 16 mg/dl (7-20); CALCIUM 8.4 mg/dl (8.4-10.2); CARBON DIOXIDE 23 mmol/L (21-31); CHLORIDE 108 mmol/L (97-110); CREATININE 0.51 mg/dl (0.61-1.24); Estimated GFR > 60 mL/min (>60); GLUCOSE 99 mg/dl (70-220); MAGNESIUM 1.4 mg/dl (1.7-2.5); PHOSPHORUS 2.7 mg/dl (2.5-4.9); POTASSIUM 3.6 mmol/L (3.5-5.1); SODIUM 138 mmol/L (135-144)
[2018-08-09] MEDS: INSULIN ASPART [NOVOLOG] 3 ML PEN SC ×4 (08:00→20:46)
[2018-08-09] MEDS: morphine 2 MG INJ IV ×2 (08:29→20:46)
[2018-08-09] MEDS: FINASTERIDE 5 MG TAB PO (08:31)
[2018-08-09] MEDS: DOCUSATE SODIUM 100 MG CAP PO ×2 (08:31→20:49)
[2018-08-09] MEDS: MONTELUKAST 10 MG TAB PO (08:31)
[2018-08-09] MEDS: SUCRALFATE (100 MG/ML) 10ML CUP PO ×4 (08:31→20:46)
[2018-08-09] MEDS: METOPROLOL 25 MG TAB PO ×2 (08:31→20:52)
[2018-08-09] MEDS: AMLODIPINE 10 MG TAB PO (08:32)
[2018-08-09] MEDS: FLUTICASONE/VILANTEROL 100-25 INH (08:37)
[2018-08-09] MEDS: MAGNESIUM SULFATE 2 GM/50 ML 50 ML IVPB (09:13)
[2018-08-09] MEDS: FLUCONAZOLE 200 MG (PMX) 100 ML IVPB (18:32)
[2018-08-09] MEDS: traZODone 50 MG TAB PO (20:47)
[2018-08-09] MEDS: ATORVASTATIN 80 MG TAB PO (20:49)
[2018-08-09] MEDS: TAMSULOSIN (SR) 0.4 MG CAP PO (20:49)
[2018-08-10] MEDS: ACCU-CHEK XX (01:09)
[2018-08-10] MEDS: PANTOPRAZOLE 40 MG INJ IV (06:32)
[2018-08-10] MEDS: PIPER-TAZO 3.375 GM IV (PMX) 100 ML IVPB ×2 (06:33→12:20)
[2018-08-10] MEDS: INSULIN ASPART [NOVOLOG] 3 ML PEN SC ×2 (08:00→12:25)
[2018-08-10] MEDS: MONTELUKAST 10 MG TAB PO (08:17)
[2018-08-10] MEDS: SUCRALFATE (100 MG/ML) 10ML CUP PO ×2 (08:17→12:20)
[2018-08-10] MEDS: POLYETHYLENE GLYCOL 17 GM PACKET PO (08:17)
[2018-08-10] MEDS: CLOPIDOGREL 75 MG TAB PO (08:17)
[2018-08-10] MEDS: METOPROLOL 25 MG TAB PO (08:19)
[2018-08-10] MEDS: DOCUSATE SODIUM 100 MG CAP PO (08:19)
[2018-08-10] MEDS: AMLODIPINE 10 MG TAB PO (08:19)
[2018-08-10] MEDS: FINASTERIDE 5 MG TAB PO (08:21)
[2018-08-10] MEDS: FLUTICASONE/VILANTEROL 100-25 INH (09:00)
[2018-08-10] MEDS: NICOTINE (14 MG/24 HR) PATCH TRANSDERM (09:30)
[2018-08-10 10:25] LABS: ADD MAN DIFF? NO
[2018-08-10 10:28] LABS: WHITE BLOOD COUNT 8.4 10^3/ul (4.8-10.8)
[2018-08-10 10:28] LABS: BASOPHIL # 0.1 10^3/ul (0.0-0.1); BASOPHILS % 0.6 % (0.0-2.0); EOSINOPHILS # 0.3 10^3/ul (0.0-0.5); EOSINOPHILS % 3.2 % (0.0-7.0); HEMATOCRIT 28.5 % (42.0-52.0); HEMOGLOBIN 9.2 g/dl (14.0-18.0); LYMPHOCYTES # 1.6 10^3/ul (0.8-2.9); LYMPHOCYTES % 18.7 % (15.0-51.0); MEAN CORPUSCULAR HGB CONC 32.3 g/dl (32.0-37.0); MEAN CORPUSCULAR VOLUME 83.6 fl (82.0-101.0); MEAN PLATELET VOLUME 9.4 fl (7.4-10.4); MONOCYTE # 0.9 10^3/ul (0.3-0.9); MONOCYTES % 10.5 % (0.0-11.0); NEUTROPHIL # 5.5 10^3/ul (1.6-7.5); PLATELET COUNT 397 10^3/UL (140-415); RED BLOOD COUNT 3.41 10^6/ul (4.70-6.10); RED CELL DISTRIBUTION WIDTH 17.7 % (11.5-14.5)
[2018-08-10] MEDS ORDERED: FLUCONAZOLE 200 MG (PMX) 100 ML IVPB (18:00)
[2018-08-11] MEDS ORDERED: FLUCONAZOLE 100 MG TAB PO (09:00)
== END 2018-08-10 15:49 | disposition home health service (06) | DRG 872 ==
LOC: E/R 11:21 → 5EC 08-07 15:45 → TEL 15:21
PROC: 0DJ08ZZ Inspection of Upper Intestinal Tract, Via Natural or Artificial Opening Endoscopic (ICD-10-PCS; principal; 2018-08-06 15:25)
DX: A41.9 Sepsis, unspecified organism (principal); N39.0 Urinary tract infection, site not specified; N17.9 Acute kidney failure, unspecified; E87.2 Acidosis; E87.3 Alkalosis; D62 Acute posthemorrhagic anemia; K92.0 Hematemesis; I82.611 Acute embolism and thrombosis of superficial veins of right upper extremity; B37.49 Other urogenital candidiasis; R65.20 Severe sepsis without septic shock; E86.0 Dehydration; I10 Essential (primary) hypertension; Z86.73 Personal history of transient ischemic attack (TIA), and cerebral infarction without residual deficits; J44.9 Chronic obstructive pulmonary disease, unspecified; R73.03 Prediabetes; N40.0 Benign prostatic hyperplasia without lower urinary tract symptoms; K25.9 Gastric ulcer, unspecified as acute or chronic, without hemorrhage or perforation; Z87.11 Personal history of peptic ulcer disease; Z79.02 Long term (current) use of antithrombotics/antiplatelets; Z72.0 Tobacco use; F19.10 Other psychoactive substance abuse, uncomplicated; B19.20 Unspecified viral hepatitis C without hepatic coma; K59.00 Constipation, unspecified
CPT/HCPCS: 36415; 36430; 71045; 74176; 80048; 80053; 80307; 81001; 81003; 82043; 82550; 82962; 83036; 83605; 83735; 84100; 84155; 84300; 84484; 85014; 85018; 85025; 85610; 85730; 86704; 86709; 86803; 86850; 86900; 86901; 86920; 87040-91; 87086; 87340; 87522; 93005; 93970; 96374; 96375; 96376; 97161; 99291-25

== ENCOUNTER 2018-08-25 13:04 | Inpatient (IN) | payer MEDICARE, OTHER ==
[2018-08-25] MEDS: SODIUM CHLORIDE 0.9% 1L BAG IV* (13:25)
[2018-08-25 13:34] LABS: ADD MAN DIFF? NO
[2018-08-25 13:38] LABS: ABNORMAL IP MESSAGE 1; BASOPHILS % 0.2 % (0.0-2.0); EOSINOPHILS # 0.1 10^3/ul (0.0-0.5); EOSINOPHILS % 0.6 % (0.0-7.0); HEMATOCRIT 18.9 % (42.0-52.0); LYMPHOCYTES # 1.2 10^3/ul (0.8-2.9); LYMPHOCYTES % 8.7 % (15.0-51.0); MEAN CORPUSCULAR HEMOGLOBIN 26.8 pg (29.0-33.0); MEAN CORPUSCULAR HGB CONC 32.3 g/dl (32.0-37.0); MEAN CORPUSCULAR VOLUME 82.9 fl (82.0-101.0); MEAN PLATELET VOLUME 9.7 fl (7.4-10.4); MONOCYTES % 7.2 % (0.0-11.0); NEUTROPHIL # 11.6 10^3/ul (1.6-7.5); NEUTROPHILS % 82.4 % (39.0-77.0); PLATELET COUNT 350 10^3/UL (140-415); POSITIVE DIFF @See below; RED BLOOD COUNT 2.28 10^6/ul (4.70-6.10); RED CELL DISTRIBUTION WIDTH 17.7 % (11.5-14.5)
[2018-08-25 13:43] LABS: HEMOGLOBIN 6.1 g/dl (14.0-18.0); PATH REVIEW? YES
[2018-08-25 13:57] LABS: ALANINE AMINOTRANSFERASE 16 IU/L (13-69); ALBUMIN 2.7 g/dl (3.3-4.9); ALBUMIN/GLOBULIN RATIO 0.84; ALKALINE PHOSPHATASE 47 IU/L (42-121); ANION GAP 13 (5-13); ASPARTATE AMINO TRANSFERASE 25 IU/L (15-46); BLOOD UREA NITROGEN 83 mg/dl (7-20); CALCIUM 8.4 mg/dl (8.4-10.2); CARBON DIOXIDE 28 mmol/L (21-31); CHLORIDE 94 mmol/L (97-110); CREATININE 6.19 mg/dl (0.61-1.24); Estimated GFR 11 mL/min (>60); GLUCOSE 93 mg/dl (70-220); POTASSIUM 4.6 mmol/L (3.5-5.1); SODIUM 135 mmol/L (135-144); TOTAL PROTEIN 5.9 g/dl (6.1-8.1)
[2018-08-25 13:58] LABS: INR 1.09; PROTIME 14.2 Sec (11.9-14.9); PT RATIO 1.1
[2018-08-25 13:59] LABS: PARTIAL THROMBOPLASTIN TIME 31.3 Sec (23.0-35.0)
[2018-08-25 14:09] LABS: TROPONIN-I < 0.012 ng/ml (0.000-0.120)
[2018-08-25] MEDS: CEFEPIME 1GM/50 ML (PMX) 50 ML IVPB (14:25)
[2018-08-25] MEDS ORDERED: ACETAMINOPHEN 325 MG TAB PO (14:30)
[2018-08-25] MEDS ORDERED: ONDANSETRON 4 MG INJ IV ×2 (14:30→16:00)
[2018-08-25 14:34] LABS: ANISOCYTOSIS 2+ (0-0); BAND NEUTROPHILS #M 0.4 10^3/ul (0.0-0.6); BAND NEUTROPHILS % (M) 3 % (0-4); BURR CELLS 2+ (0-0); HYPOCHROMASIA 1+ (0-0); LYMPHOCYTES #M 1.2 10^3/ul (0.8-2.9); LYMPHOCYTES % (M) 9 % (15-51); MICROCYTOSIS 2+ (0-0); PLATELET ESTIMATE NORMAL; POIKILOCYTOSIS 3+ (0-0); POLYCHROMASIA 3+ (0-0); SEG NEUT #M 12.4 10^3/ul (1.6-7.5); SEGMENTED NEUTROPHILS (M) % 88 % (39-77); SMUDGE%M 3 % (0-0)
[2018-08-25] MEDS: VANCOMYCIN 1 GM (PMX) 250 ML IVPB (14:44)
[2018-08-25] MEDS ORDERED: NACL 0.9% 3 ML SYG IV (16:00)
[2018-08-25] MEDS: SOD CHLORIDE 0.9% 0 ML IV (16:21)
[2018-08-25] MEDS ORDERED: GLUCOSE GEL 15 GRAM TUBE PO ×2 (17:00)
[2018-08-25] MEDS ORDERED: GLUCOSE GEL 15 GRAM TUBE BUCCAL (17:00)
[2018-08-25] MEDS ORDERED: GLUCAGON 1 MG INJ IM (17:00)
[2018-08-25] MEDS ORDERED: DEXTROSE 50% 50 ML SYRINGE IV ×2 (17:00)
[2018-08-25 19:18] LABS: LACTIC ACID 2.8 mmol/L (0.5-2.0)
[2018-08-25 20:13] LABS: ADD UMIC YES; UR ASCORBIC ACID NEGATIVE (NEGATIVE); UR BACTERIA FEW /HPF (NONE SEEN); UR BILIRUBIN (Dip) NEGATIVE (NEGATIVE); UR BLOOD (Dip) 2+ mg/dL (NEGATIVE); UR BUDDING YEAST MANY /HPF (NONE SEEN); UR CLARITY CLOUDY (CLEAR); UR COLOR YELLOW (YELLOW); UR GLUCOSE (Dip) NEGATIVE (NEGATIVE); UR KETONES (Dip) NEGATIVE (NEGATIVE); UR LEUKOCYTE ESTERASE (Dip) 3+ Leu/ul (NEGATIVE); UR NITRITE (Dip) NEGATIVE (NEGATIVE); UR RBC 17 /HPF (0-5); UR SPECIFIC GRAVITY (Dip) 1.014 (1.003-1.030); UR TOTAL PROTEIN (Dip) 1+ mg/dl (NEGATIVE); UR UROBILINOGEN (Dip) NEGATIVE (NEGATIVE); UR WBC > 182 /HPF (0-5)
[2018-08-25 20:15] LABS: AMPHETAMINE/METHAMPHETAMINE Negative (NEGATIVE); BARBITURATES Negative (NEGATIVE); BENZODIAZEPINES Negative (NEGATIVE); CANNABINOIDS Negative (NEGATIVE); COCAINE Negative (NEGATIVE); OPIATES Negative (NEGATIVE)
[2018-08-25 20:44] LABS: HEMATOCRIT 25.4 % (42.0-52.0)
[2018-08-25] MEDS ORDERED: NON-FORMULARY/PATIENT OWN MED (Salmeterol Xinaf-Fluticasone* (Advair HFA*) 2 INH) IH (21:00)
[2018-08-25] MEDS: SUCRALFATE (100 MG/ML) 10ML CUP PO ×2 (21:00→21:38)
[2018-08-25] MEDS: INSULIN ASPART [NOVOLOG] 3 ML PEN SC ×2 (21:30)
[2018-08-25] MEDS: ATORVASTATIN 80 MG TAB PO (21:41)
[2018-08-25] MEDS: TAMSULOSIN (SR) 0.4 MG CAP PO (21:41)
[2018-08-25] MEDS: GABAPENTIN 400 MG CAP PO (21:41)
[2018-08-25] MEDS: MONTELUKAST 10 MG TAB PO (21:41)
[2018-08-25] MEDS: traZODone 50 MG TAB PO (21:41)
[2018-08-25] MEDS: PANTOPRAZOLE 40 MG INJ IV (21:41)
[2018-08-25] MEDS: NICOTINE (14 MG/24 HR) PATCH TRANSDERM (21:42)
[2018-08-26] MEDS: ACCU-CHEK XX (02:00)
[2018-08-26 03:19] LABS: HEMATOCRIT 23.5 % (42.0-52.0); HEMOGLOBIN 7.7 g/dl (14.0-18.0)
[2018-08-26 07:21] LABS: ADD MAN DIFF? NO
[2018-08-26 07:25] LABS: BASOPHILS % 0.2 % (0.0-2.0); EOSINOPHILS # 0.1 10^3/ul (0.0-0.5); EOSINOPHILS % 0.7 % (0.0-7.0); HEMATOCRIT 22.1 % (42.0-52.0); HEMOGLOBIN 7.1 g/dl (14.0-18.0); LYMPHOCYTES # 1.2 10^3/ul (0.8-2.9); LYMPHOCYTES % 9.6 % (15.0-51.0); MEAN CORPUSCULAR HEMOGLOBIN 27.3 pg (29.0-33.0); MEAN CORPUSCULAR HGB CONC 32.1 g/dl (32.0-37.0); MONOCYTE # 1.3 10^3/ul (0.3-0.9); MONOCYTES % 10.8 % (0.0-11.0); NEUTROPHIL # 9.5 10^3/ul (1.6-7.5); NEUTROPHILS % 78.2 % (39.0-77.0); PLATELET COUNT 299 10^3/UL (140-415); RED CELL DISTRIBUTION WIDTH 16.8 % (11.5-14.5)
[2018-08-26 07:25] LABS: WHITE BLOOD COUNT 12.2 10^3/ul (4.8-10.8)
[2018-08-26 07:44] LABS: INR 1.16; PROTIME 14.9 Sec (11.9-14.9); PT RATIO 1.2
[2018-08-26 07:45] LABS: PARTIAL THROMBOPLASTIN TIME 36.7 Sec (23.0-35.0)
[2018-08-26 07:48] LABS: ALANINE AMINOTRANSFERASE 21 IU/L (13-69); ALBUMIN 2.3 g/dl (3.3-4.9); ALBUMIN/GLOBULIN RATIO 0.85; ALKALINE PHOSPHATASE 46 IU/L (42-121); ANION GAP 11 (5-13); ASPARTATE AMINO TRANSFERASE 20 IU/L (15-46); BLOOD UREA NITROGEN 84 mg/dl (7-20); CARBON DIOXIDE 25 mmol/L (21-31); CHLORIDE 97 mmol/L (97-110); CREATININE 5.66 mg/dl (0.61-1.24); Estimated GFR 12 mL/min (>60); GLUCOSE 116 mg/dl (70-220); MAGNESIUM 1.7 mg/dl (1.7-2.5); PHOSPHORUS 4.3 mg/dl (2.5-4.9); POTASSIUM 4.8 mmol/L (3.5-5.1); SODIUM 133 mmol/L (135-144)
[2018-08-26] MEDS: INSULIN ASPART [NOVOLOG] 3 ML PEN SC ×4 (07:55→20:39)
[2018-08-26] MEDS: FLUTICASONE/VILANTEROL 200-25 INH DEVICE INH (08:03)
[2018-08-26 08:04] LABS: HEMOGLOBIN A1C 6.1 % (0-5.9)
[2018-08-26] MEDS: NICOTINE (14 MG/24 HR) PATCH TRANSDERM (08:04)
[2018-08-26] MEDS: FINASTERIDE 5 MG TAB PO (08:04)
[2018-08-26] MEDS: GABAPENTIN 400 MG CAP PO ×3 (08:04→20:35)
[2018-08-26] MEDS: SUCRALFATE (100 MG/ML) 10ML CUP PO ×4 (08:04→20:34)
[2018-08-26] MEDS: PANTOPRAZOLE 40 MG INJ IV ×2 (08:04→20:34)
[2018-08-26 08:18] LABS: THYROID STIMULATING HORMONE 0.217 MIU/L (0.465-4.680)
[2018-08-26] MEDS: SOD CHLORIDE 0.9% 250 ML IV* (11:54)
[2018-08-26 12:51] LABS: IMMEDIATE SPIN CROSSMATCH 1 2
[2018-08-26 16:40] LABS: HEMATOCRIT 28.5 % (42.0-52.0); HEMOGLOBIN 9.2 g/dl (14.0-18.0)
[2018-08-26] MEDS: ATORVASTATIN 80 MG TAB PO (20:34)
[2018-08-26] MEDS: MONTELUKAST 10 MG TAB PO (20:34)
[2018-08-26] MEDS: TAMSULOSIN (SR) 0.4 MG CAP PO (20:35)
[2018-08-26] MEDS: traZODone 50 MG TAB PO (20:35)
[2018-08-26] MEDS: BALSAM PERU/CASTOR OIL 60 GM TUBE TOP (20:40)
[2018-08-26 22:43] LABS: HEMATOCRIT 26.3 % (42.0-52.0); HEMOGLOBIN 8.7 g/dl (14.0-18.0)
[2018-08-27] MEDS: ACCU-CHEK XX (02:00)
[2018-08-27] MEDS: INSULIN ASPART [NOVOLOG] 3 ML PEN SC ×4 (07:55→20:26)
[2018-08-27] MEDS: SUCRALFATE (100 MG/ML) 10ML CUP PO ×4 (09:00→20:25)
[2018-08-27] MEDS: NICOTINE (14 MG/24 HR) PATCH TRANSDERM (09:00)
[2018-08-27] MEDS: GABAPENTIN 400 MG CAP PO ×3 (09:00→20:25)
[2018-08-27] MEDS: FINASTERIDE 5 MG TAB PO (09:00)
[2018-08-27] MEDS: BALSAM PERU/CASTOR OIL 60 GM TUBE TOP ×2 (09:00→20:26)
[2018-08-27] MEDS: FLUTICASONE/VILANTEROL 200-25 INH DEVICE INH (09:59)
[2018-08-27] MEDS: PANTOPRAZOLE 40 MG INJ IV ×2 (09:59→20:25)
[2018-08-27 12:36] LABS: ANION GAP 13 (5-13); BLOOD UREA NITROGEN 80 mg/dl (7-20); CALCIUM 8.8 mg/dl (8.4-10.2); CARBON DIOXIDE 25 mmol/L (21-31); CHLORIDE 98 mmol/L (97-110); CREATININE 5.39 mg/dl (0.61-1.24); Estimated GFR 13 mL/min (>60); GLUCOSE 112 mg/dl (70-220); POTASSIUM 4.6 mmol/L (3.5-5.1); SODIUM 136 mmol/L (135-144)
[2018-08-27] MEDS: PROPOFOL 20 ML (13:20)
[2018-08-27] MEDS: ATORVASTATIN 80 MG TAB PO (20:25)
[2018-08-27] MEDS: traZODone 50 MG TAB PO (20:25)
[2018-08-27] MEDS: TAMSULOSIN (SR) 0.4 MG CAP PO (20:26)
[2018-08-27] MEDS: MONTELUKAST 10 MG TAB PO (20:26)
[2018-08-28] MEDS: ACCU-CHEK XX (02:00)
[2018-08-28 06:55] LABS: ADD MAN DIFF? NO
[2018-08-28 07:03] LABS: WHITE BLOOD COUNT 21.6 10^3/ul (4.8-10.8)
[2018-08-28 07:03] LABS: ABNORMAL IP MESSAGE 1; BASOPHILS % 0.2 % (0.0-2.0); EOSINOPHILS # 0.1 10^3/ul (0.0-0.5); EOSINOPHILS % 0.2 % (0.0-7.0); HEMATOCRIT 27.1 % (42.0-52.0); LYMPHOCYTES # 1.1 10^3/ul (0.8-2.9); LYMPHOCYTES % 4.9 % (15.0-51.0); MEAN CORPUSCULAR HEMOGLOBIN 27.8 pg (29.0-33.0); MEAN CORPUSCULAR HGB CONC 33.2 g/dl (32.0-37.0); MEAN CORPUSCULAR VOLUME 83.6 fl (82.0-101.0); MEAN PLATELET VOLUME 9.6 fl (7.4-10.4); MONOCYTES % 9.3 % (0.0-11.0); NEUTROPHIL # 18.2 10^3/ul (1.6-7.5); NEUTROPHILS % 84.3 % (39.0-77.0); PLATELET COUNT 383 10^3/UL (140-415); POSITIVE DIFF @See below; RED BLOOD COUNT 3.24 10^6/ul (4.70-6.10); RED CELL DISTRIBUTION WIDTH 16.8 % (11.5-14.5)
[2018-08-28 07:14] LABS: ANION GAP 7 (5-13); BLOOD UREA NITROGEN 77 mg/dl (7-20); CALCIUM 8.8 mg/dl (8.4-10.2); CARBON DIOXIDE 25 mmol/L (21-31); CHLORIDE 105 mmol/L (97-110); Estimated GFR 17 mL/min (>60); GLUCOSE 131 mg/dl (70-220); MAGNESIUM 1.7 mg/dl (1.7-2.5); PHOSPHORUS 3.3 mg/dl (2.5-4.9); POTASSIUM 4.6 mmol/L (3.5-5.1); SODIUM 137 mmol/L (135-144)
[2018-08-28] MEDS: SUCRALFATE (100 MG/ML) 10ML CUP PO ×4 (08:22→20:48)
[2018-08-28] MEDS: NICOTINE (14 MG/24 HR) PATCH TRANSDERM (08:23)
[2018-08-28] MEDS: BALSAM PERU/CASTOR OIL 60 GM TUBE TOP ×2 (08:24→20:49)
[2018-08-28] MEDS: INSULIN ASPART [NOVOLOG] 3 ML PEN SC ×4 (08:26→20:58)
[2018-08-28] MEDS: PANTOPRAZOLE 40 MG INJ IV ×2 (08:26→20:48)
[2018-08-28] MEDS: FINASTERIDE 5 MG TAB PO (08:26)
[2018-08-28] MEDS: GABAPENTIN 400 MG CAP PO ×3 (08:26→20:48)
[2018-08-28] MEDS: ACETAMINOPHEN 325 MG TAB PO (08:27)
[2018-08-28] MEDS: FLUTICASONE/VILANTEROL 200-25 INH DEVICE INH (10:44)
[2018-08-28] MEDS ORDERED: BACLOFEN 10 MG TAB PO (11:30)
[2018-08-28] MEDS: METOPROLOL 25 MG TAB PO (17:00)
[2018-08-28] MEDS: ATORVASTATIN 80 MG TAB PO (20:48)
[2018-08-28] MEDS: MONTELUKAST 10 MG TAB PO (20:49)
[2018-08-28] MEDS: TAMSULOSIN (SR) 0.4 MG CAP PO (20:49)
[2018-08-28] MEDS: traZODone 50 MG TAB PO (20:49)
[2018-08-29] MEDS: METOPROLOL 25 MG TAB PO ×3 (00:26→21:30)
[2018-08-29] MEDS: ACCU-CHEK XX (02:05)
[2018-08-29] MEDS: INSULIN ASPART [NOVOLOG] 3 ML PEN SC ×4 (07:55→21:00)
[2018-08-29] MEDS: SUCRALFATE (100 MG/ML) 10ML CUP PO ×4 (09:36→21:29)
[2018-08-29] MEDS: FLUTICASONE/VILANTEROL 200-25 INH DEVICE INH (09:36)
[2018-08-29] MEDS: PANTOPRAZOLE 40 MG INJ IV ×2 (09:36→21:29)
[2018-08-29] MEDS: GABAPENTIN 400 MG CAP PO ×3 (09:37→21:29)
[2018-08-29] MEDS: FINASTERIDE 5 MG TAB PO (09:37)
[2018-08-29] MEDS: BALSAM PERU/CASTOR OIL 60 GM TUBE TOP ×2 (09:37→21:31)
[2018-08-29] MEDS: NICOTINE (14 MG/24 HR) PATCH TRANSDERM (09:38)
[2018-08-29 10:41] LABS: ADD MAN DIFF? NO
[2018-08-29 10:46] LABS: ABNORMAL IP MESSAGE 1; BASOPHIL # 0.1 10^3/ul (0.0-0.1); BASOPHILS % 0.3 % (0.0-2.0); EOSINOPHILS # 0.1 10^3/ul (0.0-0.5); EOSINOPHILS % 0.4 % (0.0-7.0); HEMATOCRIT 28.9 % (42.0-52.0); HEMOGLOBIN 9.3 g/dl (14.0-18.0); LYMPHOCYTES # 1.2 10^3/ul (0.8-2.9); LYMPHOCYTES % 6.4 % (15.0-51.0); MEAN CORPUSCULAR HEMOGLOBIN 27.4 pg (29.0-33.0); MEAN CORPUSCULAR HGB CONC 32.2 g/dl (32.0-37.0); MEAN PLATELET VOLUME 9.6 fl (7.4-10.4); MONOCYTE # 1.8 10^3/ul (0.3-0.9); MONOCYTES % 9.6 % (0.0-11.0); NEUTROPHILS % 82.1 % (39.0-77.0); PLATELET COUNT 445 10^3/UL (140-415); POSITIVE DIFF @See below; RED CELL DISTRIBUTION WIDTH 16.8 % (11.5-14.5)
[2018-08-29 10:46] LABS: WHITE BLOOD COUNT 18.2 10^3/ul (4.8-10.8)
[2018-08-29 11:19] LABS: ANION GAP 11 (5-13); BLOOD UREA NITROGEN 58 mg/dl (7-20); CALCIUM 8.9 mg/dl (8.4-10.2); CARBON DIOXIDE 20 mmol/L (21-31); CHLORIDE 107 mmol/L (97-110); CREATININE 2.63 mg/dl (0.61-1.24); Estimated GFR 29 mL/min (>60); GLUCOSE 154 mg/dl (70-220); POTASSIUM 4.2 mmol/L (3.5-5.1); SODIUM 138 mmol/L (135-144)
[2018-08-29] MEDS: POLYETHYLENE GLYCOL 17 GM PACKET PO (16:56)
[2018-08-29] MEDS: ACETAMINOPHEN 325 MG TAB PO (19:25)
[2018-08-29] MEDS: ATORVASTATIN 80 MG TAB PO (21:29)
[2018-08-29] MEDS: MONTELUKAST 10 MG TAB PO (21:29)
[2018-08-29] MEDS: TAMSULOSIN (SR) 0.4 MG CAP PO (21:29)
[2018-08-29] MEDS: traZODone 50 MG TAB PO (21:29)
[2018-08-29] MEDS: DOCUSATE SODIUM 100 MG CAP PO (21:30)
[2018-08-30] MEDS: ACCU-CHEK XX (01:17)
[2018-08-30 07:49] LABS: ADD MAN DIFF? NO
[2018-08-30 07:54] LABS: WHITE BLOOD COUNT 14.2 10^3/ul (4.8-10.8)
[2018-08-30 07:54] LABS: ABNORMAL IP MESSAGE 1; BASOPHILS % 0.3 % (0.0-2.0); EOSINOPHILS # 0.1 10^3/ul (0.0-0.5); EOSINOPHILS % 0.6 % (0.0-7.0); HEMATOCRIT 27.8 % (42.0-52.0); HEMOGLOBIN 9.2 g/dl (14.0-18.0); LYMPHOCYTES # 1.3 10^3/ul (0.8-2.9); LYMPHOCYTES % 8.9 % (15.0-51.0); MEAN CORPUSCULAR HEMOGLOBIN 27.7 pg (29.0-33.0); MEAN CORPUSCULAR HGB CONC 33.1 g/dl (32.0-37.0); MEAN CORPUSCULAR VOLUME 83.7 fl (82.0-101.0); MEAN PLATELET VOLUME 10.2 fl (7.4-10.4); MONOCYTE # 1.9 10^3/ul (0.3-0.9); MONOCYTES % 13.6 % (0.0-11.0); NEUTROPHIL # 10.7 10^3/ul (1.6-7.5); NEUTROPHILS % 75.1 % (39.0-77.0); PLATELET COUNT 429 10^3/UL (140-415); POSITIVE DIFF @See below; RED BLOOD COUNT 3.32 10^6/ul (4.70-6.10); RED CELL DISTRIBUTION WIDTH 16.5 % (11.5-14.5)
[2018-08-30 08:14] LABS: ANION GAP 7 (5-13); BLOOD UREA NITROGEN 44 mg/dl (7-20); CALCIUM 8.7 mg/dl (8.4-10.2); CARBON DIOXIDE 24 mmol/L (21-31); CHLORIDE 107 mmol/L (97-110); CREATININE 1.76 mg/dl (0.61-1.24); Estimated GFR 47 mL/min (>60); GLUCOSE 153 mg/dl (70-220); MAGNESIUM 1.4 mg/dl (1.7-2.5); PHOSPHORUS 2.6 mg/dl (2.5-4.9); POTASSIUM 4.3 mmol/L (3.5-5.1); SODIUM 138 mmol/L (135-144)
[2018-08-30] MEDS: FINASTERIDE 5 MG TAB PO (08:33)
[2018-08-30] MEDS: FLUTICASONE/VILANTEROL 200-25 INH DEVICE INH (08:33)
[2018-08-30] MEDS: METOPROLOL 25 MG TAB PO ×2 (08:33→20:56)
[2018-08-30] MEDS: SUCRALFATE (100 MG/ML) 10ML CUP PO ×4 (08:33→20:55)
[2018-08-30] MEDS: DOCUSATE SODIUM 100 MG CAP PO ×2 (08:33→20:55)
[2018-08-30] MEDS: PANTOPRAZOLE 40 MG INJ IV ×2 (08:33→20:55)
[2018-08-30] MEDS: GABAPENTIN 400 MG CAP PO ×3 (08:34→20:56)
[2018-08-30] MEDS: NICOTINE (14 MG/24 HR) PATCH TRANSDERM (08:34)
[2018-08-30] MEDS: BALSAM PERU/CASTOR OIL 60 GM TUBE TOP ×2 (08:34→20:57)
[2018-08-30] MEDS: INSULIN ASPART [NOVOLOG] 3 ML PEN SC ×4 (08:47→20:57)
[2018-08-30] MEDS: MAGNESIUM SULFATE 3 GM in DEXTROSE 5% 100 ML IVPB (16:36)
[2018-08-30] MEDS: MONTELUKAST 10 MG TAB PO (20:55)
[2018-08-30] MEDS: ATORVASTATIN 80 MG TAB PO (20:55)
[2018-08-30] MEDS: TAMSULOSIN (SR) 0.4 MG CAP PO (20:55)
[2018-08-30] MEDS: traZODone 50 MG TAB PO (20:55)
[2018-08-31] MEDS: hydrALAzine 20 MG INJ IV (00:32)
[2018-08-31] MEDS: ACETAMINOPHEN 325 MG TAB PO (01:11)
[2018-08-31] MEDS: ACCU-CHEK XX (02:00)
[2018-08-31] MEDS: FLUTICASONE/VILANTEROL 200-25 INH DEVICE INH (08:21)
[2018-08-31] MEDS: PANTOPRAZOLE 40 MG INJ IV (08:21)
[2018-08-31] MEDS: FINASTERIDE 5 MG TAB PO (08:21)
[2018-08-31] MEDS: NICOTINE (14 MG/24 HR) PATCH TRANSDERM (08:22)
[2018-08-31] MEDS: METOPROLOL 25 MG TAB PO (08:22)
[2018-08-31] MEDS: DOCUSATE SODIUM 100 MG CAP PO (08:22)
[2018-08-31] MEDS: SUCRALFATE (100 MG/ML) 10ML CUP PO ×3 (08:22→17:15)
[2018-08-31] MEDS: GABAPENTIN 400 MG CAP PO ×2 (08:22→12:31)
[2018-08-31] MEDS: INSULIN ASPART [NOVOLOG] 3 ML PEN SC ×3 (08:26→17:14)
[2018-08-31 08:35] LABS: ADD MAN DIFF? NO
[2018-08-31 08:47] LABS: WHITE BLOOD COUNT 14.3 10^3/ul (4.8-10.8)
[2018-08-31 08:47] LABS: ABNORMAL IP MESSAGE 1; BASOPHIL # 0.1 10^3/ul (0.0-0.1); BASOPHILS % 0.4 % (0.0-2.0); EOSINOPHILS # 0.1 10^3/ul (0.0-0.5); EOSINOPHILS % 0.6 % (0.0-7.0); HEMATOCRIT 25.9 % (42.0-52.0); HEMOGLOBIN 8.3 g/dl (14.0-18.0); LYMPHOCYTES # 1.4 10^3/ul (0.8-2.9); LYMPHOCYTES % 9.7 % (15.0-51.0); MEAN CORPUSCULAR HEMOGLOBIN 27.5 pg (29.0-33.0); MEAN CORPUSCULAR VOLUME 85.8 fl (82.0-101.0); MEAN PLATELET VOLUME 10.2 fl (7.4-10.4); MONOCYTE # 1.7 10^3/ul (0.3-0.9); MONOCYTES % 12.2 % (0.0-11.0); NEUTROPHIL # 10.9 10^3/ul (1.6-7.5); NEUTROPHILS % 76.2 % (39.0-77.0); PLATELET COUNT 380 10^3/UL (140-415); POSITIVE DIFF @See below; RED BLOOD COUNT 3.02 10^6/ul (4.70-6.10); RED CELL DISTRIBUTION WIDTH 16.6 % (11.5-14.5)
[2018-08-31 09:22] LABS: ANION GAP 8 (5-13); BLOOD UREA NITROGEN 29 mg/dl (7-20); CALCIUM 8.2 mg/dl (8.4-10.2); CARBON DIOXIDE 22 mmol/L (21-31); CHLORIDE 108 mmol/L (97-110); CREATININE 1.09 mg/dl (0.61-1.24); Estimated GFR > 60 mL/min (>60); GLUCOSE 183 mg/dl (70-220); POTASSIUM 3.9 mmol/L (3.5-5.1); SODIUM 138 mmol/L (135-144)
[2018-08-31 09:28] LABS: MAGNESIUM 1.4 mg/dl (1.7-2.5)
[2018-08-31] MEDS: BALSAM PERU/CASTOR OIL 60 GM TUBE TOP (09:44)
[2018-08-31] MEDS: MAGNESIUM SULFATE 3 GM in DEXTROSE 5% 100 ML IVPB (14:25)
[2018-08-31] MEDS: PANTOPRAZOLE (EC) 40 MG TAB PO (17:15)
== END 2018-08-31 18:55 | disposition home health service (06) | DRG 377 ==
LOC: E/R 13:04 → TEL 17:06
PROC: 0DB68ZX Excision of Stomach, Via Natural or Artificial Opening Endoscopic, Diagnostic (ICD-10-PCS; principal; 2018-08-27 13:00)
PROC: 30233N1 Transfusion of Nonautologous Red Blood Cells into Peripheral Vein, Percutaneous Approach (ICD-10-PCS; 2018-08-27 13:00)
DX: K25.4 Chronic or unspecified gastric ulcer with hemorrhage (principal); L89.323 Pressure ulcer of left buttock, stage 3; D62 Acute posthemorrhagic anemia; N17.9 Acute kidney failure, unspecified; E11.9 Type 2 diabetes mellitus without complications; I10 Essential (primary) hypertension; J44.9 Chronic obstructive pulmonary disease, unspecified; E86.0 Dehydration; F17.210 Nicotine dependence, cigarettes, uncomplicated; I95.89 Other hypotension; K59.00 Constipation, unspecified
CPT/HCPCS: 36415; 36430; 71045; 74018; 80048; 80053; 80307; 81001; 82962; 83036; 83605; 83735; 84100; 84443; 84484; 85014; 85018; 85025; 85610; 85730; 86850; 86900; 86901; 86920; 87040-91; 87045; 87086; 87400; 88305; 88312; 93005; 97161; 99291-25

== ENCOUNTER 2018-09-07 16:07 | Inpatient (IN) | payer MEDICARE, OTHER ==
[2018-09-07 16:36] LABS: ABNORMAL IP MESSAGE 1; HEMATOCRIT 20.7 % (42.0-52.0); MEAN CORPUSCULAR HEMOGLOBIN 27.1 pg (29.0-33.0); MEAN CORPUSCULAR HGB CONC 31.4 g/dl (32.0-37.0); MEAN CORPUSCULAR VOLUME 86.3 fl (82.0-101.0); MEAN PLATELET VOLUME 9.1 fl (7.4-10.4); PLATELET COUNT 507 10^3/UL (140-415); POSITIVE DIFF @See below; RED CELL DISTRIBUTION WIDTH 17.5 % (11.5-14.5)
[2018-09-07 16:36] LABS: WHITE BLOOD COUNT 9.1 10^3/ul (4.8-10.8)
[2018-09-07 16:50] LABS: HEMOGLOBIN 6.5 g/dl (14.0-18.0)
[2018-09-07 16:51] LABS: ADD MAN DIFF? YES
[2018-09-07 16:53] LABS: INR 1.08; PROTIME 14.1 Sec (11.9-14.9); PT RATIO 1.1
[2018-09-07 16:54] LABS: PARTIAL THROMBOPLASTIN TIME 28.9 Sec (23.0-35.0)
[2018-09-07 16:56] LABS: ALANINE AMINOTRANSFERASE 53 IU/L (13-69); ALBUMIN 2.6 g/dl (3.3-4.9); ALBUMIN/GLOBULIN RATIO 0.74; ALKALINE PHOSPHATASE 52 IU/L (42-121); ANION GAP 9 (5-13); ASPARTATE AMINO TRANSFERASE 75 IU/L (15-46); BLOOD UREA NITROGEN 25 mg/dl (7-20); CALCIUM 8.3 mg/dl (8.4-10.2); CARBON DIOXIDE 25 mmol/L (21-31); CHLORIDE 112 mmol/L (97-110); CREATININE 0.77 mg/dl (0.61-1.24); Estimated GFR > 60 mL/min (>60); GLUCOSE 155 mg/dl (70-220); SODIUM 146 mmol/L (135-144); TOTAL PROTEIN 6.1 g/dl (6.1-8.1)
[2018-09-07 17:08] LABS: TROPONIN-I < 0.012 ng/ml (0.000-0.120)
[2018-09-07 17:18] LABS: ACANTHOCYTES 2+ (0-0); ANISOCYTOSIS 1+ (0-0); BAND NEUTROPHILS #M 0.2 10^3/ul (0.0-0.6); BAND NEUTROPHILS % (M) 3 % (0-4); GIANT THROMBO% (M) 4 % (0-0); LYMPHOCYTES #M 1.6 10^3/ul (0.8-2.9); LYMPHOCYTES % (M) 18 % (15-51); MICROCYTOSIS 1+ (0-0); MONOCYTE #M 0.6 10^3/ul (0.3-0.9); MONOCYTES % (M) 7 % (0-11); OVALOCYTES 1+ (0-0); PLATELET ESTIMATE NORMAL; POIKILOCYTOSIS 2+ (0-0); SCHISTOCYTES 1+ (0-0); SEG NEUT #M 6.6 10^3/ul (1.6-7.5); SEGMENTED NEUTROPHILS (M) % 72 % (39-77); SMUDGE%M 6 % (0-0)
[2018-09-07] MEDS ORDERED: NACL 0.9% 3 ML SYG IV (17:30)
[2018-09-07] MEDS ORDERED: ONDANSETRON 4 MG INJ IV (17:30)
[2018-09-07] MEDS ORDERED: ACETAMINOPHEN 325 MG TAB PO (17:30)
[2018-09-07] MEDS: ATORVASTATIN 80 MG TAB PO (21:00)
[2018-09-07] MEDS: METOPROLOL 25 MG TAB PO (21:00)
[2018-09-07] MEDS: TAMSULOSIN (SR) 0.4 MG CAP PO (22:35)
[2018-09-07] MEDS: SUCRALFATE (100 MG/ML) 10ML CUP PO (22:35)
[2018-09-07] MEDS: traZODone 50 MG TAB PO (22:35)
[2018-09-07] MEDS: MONTELUKAST 10 MG TAB PO (22:35)
[2018-09-07] MEDS: SOD CHLORIDE 0.9% 0 ML IV (23:29)
[2018-09-08] MEDS: PANTOPRAZOLE 40 MG INJ IV ×3 (02:30→18:04)
[2018-09-08 02:47] LABS: IMMEDIATE SPIN CROSSMATCH 1 2
[2018-09-08] MEDS: SOD CHLORIDE 0.45% 1,000 ML IV ×5 (03:21→23:21)
[2018-09-08] MEDS: hydrALAzine 20 MG INJ IV ×2 (05:59→14:07)
[2018-09-08] MEDS ORDERED: PANTOPRAZOLE 40 MG INJ IV (06:00)
[2018-09-08 07:14] LABS: ADD MAN DIFF? NO
[2018-09-08 07:19] LABS: BASOPHIL # 0.1 10^3/ul (0.0-0.1); BASOPHILS % 0.9 % (0.0-2.0); EOSINOPHILS # 0.1 10^3/ul (0.0-0.5); EOSINOPHILS % 1.2 % (0.0-7.0); HEMATOCRIT 29.3 % (42.0-52.0); HEMOGLOBIN 9.5 g/dl (14.0-18.0); LYMPHOCYTES # 1.3 10^3/ul (0.8-2.9); LYMPHOCYTES % 15.8 % (15.0-51.0); MEAN CORPUSCULAR HEMOGLOBIN 27.5 pg (29.0-33.0); MEAN CORPUSCULAR HGB CONC 32.4 g/dl (32.0-37.0); MEAN CORPUSCULAR VOLUME 84.7 fl (82.0-101.0); MEAN PLATELET VOLUME 9.5 fl (7.4-10.4); MONOCYTES % 12.1 % (0.0-11.0); NEUTROPHIL # 5.6 10^3/ul (1.6-7.5); NEUTROPHILS % 69.5 % (39.0-77.0); PLATELET COUNT 557 10^3/UL (140-415); RED BLOOD COUNT 3.46 10^6/ul (4.70-6.10); RED CELL DISTRIBUTION WIDTH 16.4 % (11.5-14.5)
[2018-09-08 07:19] LABS: WHITE BLOOD COUNT 8.1 10^3/ul (4.8-10.8)
[2018-09-08 07:47] LABS: IRON 14 ug/dl (35-150)
[2018-09-08 07:54] LABS: ALANINE AMINOTRANSFERASE 53 IU/L (13-69); ALBUMIN 2.6 g/dl (3.3-4.9); ALBUMIN/GLOBULIN RATIO 0.74; ALKALINE PHOSPHATASE 57 IU/L (42-121); ANION GAP 8 (5-13); ASPARTATE AMINO TRANSFERASE 67 IU/L (15-46); BILIRUBIN,INDIRECT 0.2 mg/dl (0-1.1); BILIRUBIN,TOTAL 0.2 mg/dl (0.2-1.3); BLOOD UREA NITROGEN 19 mg/dl (7-20); CALCIUM 8.2 mg/dl (8.4-10.2); CARBON DIOXIDE 25 mmol/L (21-31); CHLORIDE 113 mmol/L (97-110); CREATININE 0.67 mg/dl (0.61-1.24); Estimated GFR > 60 mL/min (>60); GLUCOSE 110 mg/dl (70-220); POTASSIUM 3.8 mmol/L (3.5-5.1); SODIUM 146 mmol/L (135-144); TOTAL PROTEIN 6.1 g/dl (6.1-8.1)
[2018-09-08 07:56] LABS: % IRON SATURATION 6 % SAT (22-52); TOTAL IRON BINDING CAPACITY 216 ug/dl (241-421)
[2018-09-08 08:54] LABS: HEMOGLOBIN A1C 6.2 % (0-5.9)
[2018-09-08] MEDS: LISINOPRIL 10 MG TAB PO (09:00)
[2018-09-08] MEDS: SUCRALFATE (100 MG/ML) 10ML CUP PO ×4 (09:00→22:05)
[2018-09-08] MEDS: FINASTERIDE 5 MG TAB PO (09:00)
[2018-09-08] MEDS: METOPROLOL 25 MG TAB PO ×2 (09:00→22:06)
[2018-09-08] MEDS: SOD FERRIC GLUC COMPLX 125 MG in SOD CHLORIDE 0.9% 100 ML IVPB (14:03)
[2018-09-08 16:27] LABS: OCCULT BLOOD STOOL NEGATIVE (NEGATIVE)
[2018-09-08] MEDS: INSULIN ASPART [NOVOLOG] 3 ML PEN SC ×2 (18:00→21:00)
[2018-09-08] MEDS: MONTELUKAST 10 MG TAB PO (22:05)
[2018-09-08] MEDS: traZODone 50 MG TAB PO (22:07)
[2018-09-08] MEDS: ATORVASTATIN 80 MG TAB PO (22:07)
[2018-09-08] MEDS: TAMSULOSIN (SR) 0.4 MG CAP PO (22:07)
[2018-09-08] MEDS: COLLAGENASE 5 GM (UD JAR) TOP (22:07)
[2018-09-08] MEDS ORDERED: BACLOFEN 10 MG TAB PO (23:00)
[2018-09-09] MEDS: SOD CHLORIDE 0.45% 1,000 ML IV ×3 (03:39→18:21)
[2018-09-09 05:53] LABS: ADD MAN DIFF? NO
[2018-09-09] MEDS: PANTOPRAZOLE 40 MG INJ IV ×2 (05:54→18:21)
[2018-09-09 05:57] LABS: WHITE BLOOD COUNT 6.6 10^3/ul (4.8-10.8)
[2018-09-09 05:57] LABS: BASOPHIL # 0.1 10^3/ul (0.0-0.1); BASOPHILS % 1.2 % (0.0-2.0); EOSINOPHILS # 0.1 10^3/ul (0.0-0.5); EOSINOPHILS % 1.7 % (0.0-7.0); HEMATOCRIT 27.8 % (42.0-52.0); HEMOGLOBIN 8.9 g/dl (14.0-18.0); LYMPHOCYTES # 1.3 10^3/ul (0.8-2.9); LYMPHOCYTES % 20.4 % (15.0-51.0); MEAN CORPUSCULAR HEMOGLOBIN 27.6 pg (29.0-33.0); MEAN CORPUSCULAR VOLUME 86.1 fl (82.0-101.0); MEAN PLATELET VOLUME 10.6 fl (7.4-10.4); MONOCYTE # 0.9 10^3/ul (0.3-0.9); MONOCYTES % 13.5 % (0.0-11.0); NEUTROPHIL # 4.1 10^3/ul (1.6-7.5); NEUTROPHILS % 62.4 % (39.0-77.0); PLATELET COUNT 439 10^3/UL (140-415); RED BLOOD COUNT 3.23 10^6/ul (4.70-6.10); RED CELL DISTRIBUTION WIDTH 16.9 % (11.5-14.5)
[2018-09-09 06:26] LABS: ALBUMIN 2.3 g/dl (3.3-4.9); ANION GAP 5 (5-13); BLOOD UREA NITROGEN 13 mg/dl (7-20); CALCIUM 7.6 mg/dl (8.4-10.2); CARBON DIOXIDE 24 mmol/L (21-31); CHLORIDE 111 mmol/L (97-110); CREATININE 0.63 mg/dl (0.61-1.24); GLUCOSE 92 mg/dl (70-220); PHOSPHORUS 3.1 mg/dl (2.5-4.9); POTASSIUM 3.5 mmol/L (3.5-5.1); SODIUM 140 mmol/L (135-144)
[2018-09-09 06:31] LABS: MAGNESIUM 0.9 mg/dl (1.7-2.5)
[2018-09-09] MEDS: INSULIN ASPART [NOVOLOG] 3 ML PEN SC ×4 (08:00→21:00)
[2018-09-09] MEDS: MAGNESIUM SULFATE 3 GM in DEXTROSE 5% 100 ML IVPB (08:05)
[2018-09-09] MEDS: SUCRALFATE (100 MG/ML) 10ML CUP PO ×4 (10:11→21:50)
[2018-09-09] MEDS: POTASSIUM CHLORIDE (SR) 20 MEQ TAB PO (10:11)
[2018-09-09] MEDS: COLLAGENASE 5 GM (UD JAR) TOP ×2 (10:12→21:46)
[2018-09-09] MEDS: LISINOPRIL 10 MG TAB PO (10:12)
[2018-09-09] MEDS: FINASTERIDE 5 MG TAB PO (10:12)
[2018-09-09] MEDS: METOPROLOL 25 MG TAB PO ×2 (10:12→21:45)
[2018-09-09] MEDS: SOD FERRIC GLUC COMPLX 125 MG in SOD CHLORIDE 0.9% 100 ML IVPB (13:07)
[2018-09-09] MEDS: LACTOBACILLUS RHAMNOSUS CAP PO (18:24)
[2018-09-09] MEDS: ATORVASTATIN 80 MG TAB PO (21:44)
[2018-09-09] MEDS: MONTELUKAST 10 MG TAB PO (21:44)
[2018-09-09] MEDS: traZODone 50 MG TAB PO (21:45)
[2018-09-09] MEDS: TAMSULOSIN (SR) 0.4 MG CAP PO (21:46)
[2018-09-10 02:13] LABS: TROPONIN-I < 0.012 ng/ml (0.000-0.120)
[2018-09-10 02:13] LABS: CK-MB 1.58 ng/ml (0.0-2.4)
[2018-09-10] MEDS: SOD CHLORIDE 0.45% 1,000 ML IV ×2 (05:21→15:21)
[2018-09-10 05:26] LABS: ADD MAN DIFF? NO
[2018-09-10 05:50] LABS: WHITE BLOOD COUNT 5.4 10^3/ul (4.8-10.8)
[2018-09-10 05:50] LABS: BASOPHIL # 0.1 10^3/ul (0.0-0.1); BASOPHILS % 0.9 % (0.0-2.0); EOSINOPHILS # 0.1 10^3/ul (0.0-0.5); EOSINOPHILS % 1.3 % (0.0-7.0); HEMATOCRIT 30.1 % (42.0-52.0); HEMOGLOBIN 9.5 g/dl (14.0-18.0); LYMPHOCYTES # 1.3 10^3/ul (0.8-2.9); LYMPHOCYTES % 24.4 % (15.0-51.0); MEAN CORPUSCULAR HEMOGLOBIN 27.4 pg (29.0-33.0); MEAN CORPUSCULAR HGB CONC 31.6 g/dl (32.0-37.0); MEAN CORPUSCULAR VOLUME 86.7 fl (82.0-101.0); MEAN PLATELET VOLUME 10.5 fl (7.4-10.4); MONOCYTE # 0.8 10^3/ul (0.3-0.9); MONOCYTES % 14.1 % (0.0-11.0); NEUTROPHIL # 3.2 10^3/ul (1.6-7.5); NEUTROPHILS % 58.7 % (39.0-77.0); PLATELET COUNT 432 10^3/UL (140-415); POSITIVE DIFF @See below; RED BLOOD COUNT 3.47 10^6/ul (4.70-6.10); RED CELL DISTRIBUTION WIDTH 16.4 % (11.5-14.5)
[2018-09-10] MEDS: PANTOPRAZOLE 40 MG INJ IV ×2 (06:00→18:15)
[2018-09-10 06:08] LABS: ALBUMIN 2.3 g/dl (3.3-4.9); ANION GAP 8 (5-13); BLOOD UREA NITROGEN 11 mg/dl (7-20); CALCIUM 7.5 mg/dl (8.4-10.2); CARBON DIOXIDE 19 mmol/L (21-31); CHLORIDE 111 mmol/L (97-110); CREATININE 0.55 mg/dl (0.61-1.24); GLUCOSE 142 mg/dl (70-220); MAGNESIUM 1.2 mg/dl (1.7-2.5); PHOSPHORUS 2.7 mg/dl (2.5-4.9); POTASSIUM 3.5 mmol/L (3.5-5.1); SODIUM 138 mmol/L (135-144)
[2018-09-10] MEDS: INSULIN ASPART [NOVOLOG] 3 ML PEN SC ×4 (08:00→21:00)
[2018-09-10] MEDS: LISINOPRIL 10 MG TAB PO ×2 (08:37→20:31)
[2018-09-10] MEDS: FINASTERIDE 5 MG TAB PO (08:37)
[2018-09-10] MEDS: COLLAGENASE 5 GM (UD JAR) TOP ×2 (08:37→20:32)
[2018-09-10] MEDS: METOPROLOL 25 MG TAB PO ×2 (08:37→20:32)
[2018-09-10] MEDS: SUCRALFATE (100 MG/ML) 10ML CUP PO ×4 (08:37→20:32)
[2018-09-10] MEDS: LACTOBACILLUS RHAMNOSUS CAP PO ×3 (08:37→17:39)
[2018-09-10] MEDS: HYDROCODONE/APAP (10/325) TAB PO (10:47)
[2018-09-10] MEDS: morphine LIQ (10 MG/5 ML) CUP PO ×2 (14:45→20:40)
[2018-09-10 18:12] LABS: TROPONIN-I < 0.012 ng/ml (0.000-0.120)
[2018-09-10] MEDS: MAGNESIUM SULFATE 3 GM in DEXTROSE 5% 100 ML IVPB (18:15)
[2018-09-10] MEDS: HYDROCODONE/APAP (5/325) TAB PO (19:33)
[2018-09-10] MEDS: MONTELUKAST 10 MG TAB PO (20:31)
[2018-09-10] MEDS: ATORVASTATIN 80 MG TAB PO (20:31)
[2018-09-10] MEDS: TAMSULOSIN (SR) 0.4 MG CAP PO (20:31)
[2018-09-10] MEDS: traZODone 50 MG TAB PO (20:32)
[2018-09-10] MEDS: SOD FERRIC GLUC COMPLX 125 MG in SOD CHLORIDE 0.9% 100 ML IVPB (21:34)
[2018-09-11 01:13] LABS: TROPONIN-I < 0.012 ng/ml (0.000-0.120)
[2018-09-11] MEDS: SOD CHLORIDE 0.45% 1,000 ML IV ×3 (01:21→21:21)
[2018-09-11] MEDS: morphine 2 MG INJ IV ×4 (02:38→16:51)
[2018-09-11] MEDS: PANTOPRAZOLE 40 MG INJ IV ×2 (05:16→18:06)
[2018-09-11] MEDS: INSULIN ASPART [NOVOLOG] 3 ML PEN SC ×4 (07:50→21:00)
[2018-09-11] MEDS: hydrALAzine 20 MG INJ IV (08:04)
[2018-09-11] MEDS ORDERED: GLUCOSE GEL 15 GRAM TUBE PO ×2 (09:00)
[2018-09-11] MEDS ORDERED: DEXTROSE 50% 50 ML SYRINGE IV ×2 (09:00)
[2018-09-11] MEDS ORDERED: GLUCOSE GEL 15 GRAM TUBE BUCCAL (09:00)
[2018-09-11] MEDS ORDERED: GLUCAGON 1 MG INJ IM (09:00)
[2018-09-11] MEDS: METOPROLOL 25 MG TAB PO ×2 (09:13→21:02)
[2018-09-11] MEDS: FINASTERIDE 5 MG TAB PO (09:13)
[2018-09-11] MEDS: COLLAGENASE 5 GM (UD JAR) TOP ×2 (09:14→21:02)
[2018-09-11] MEDS: LACTOBACILLUS RHAMNOSUS CAP PO ×3 (09:14→18:07)
[2018-09-11] MEDS: LISINOPRIL 10 MG TAB PO ×2 (09:14→21:02)
[2018-09-11] MEDS: SUCRALFATE (100 MG/ML) 10ML CUP PO ×4 (09:14→21:02)
[2018-09-11 11:00] LABS: ADD MAN DIFF? NO
[2018-09-11 11:08] LABS: BASOPHILS % 0.6 % (0.0-2.0); EOSINOPHILS # 0.1 10^3/ul (0.0-0.5); EOSINOPHILS % 1.8 % (0.0-7.0); HEMATOCRIT 31.8 % (42.0-52.0); HEMOGLOBIN 10.1 g/dl (14.0-18.0); LYMPHOCYTES # 1.4 10^3/ul (0.8-2.9); LYMPHOCYTES % 23.3 % (15.0-51.0); MEAN CORPUSCULAR HEMOGLOBIN 27.2 pg (29.0-33.0); MEAN CORPUSCULAR HGB CONC 31.8 g/dl (32.0-37.0); MEAN CORPUSCULAR VOLUME 85.7 fl (82.0-101.0); MEAN PLATELET VOLUME 9.3 fl (7.4-10.4); MONOCYTE # 0.8 10^3/ul (0.3-0.9); MONOCYTES % 12.5 % (0.0-11.0); NEUTROPHIL # 3.8 10^3/ul (1.6-7.5); NEUTROPHILS % 61.3 % (39.0-77.0); PLATELET COUNT 579 10^3/UL (140-415); RED BLOOD COUNT 3.71 10^6/ul (4.70-6.10); RED CELL DISTRIBUTION WIDTH 15.9 % (11.5-14.5)
[2018-09-11 11:08] LABS: WHITE BLOOD COUNT 6.2 10^3/ul (4.8-10.8)
[2018-09-11 11:37] LABS: CHOLESTEROL 86 mg/dl (100-200)
[2018-09-11 11:37] LABS: CHOL/HDL RATIO 2.2 RATIO; HDL CHOLESTEROL 39 mg/dl (30-78); LDL CHOLESTEROL,CALCULATED 25 mg/dl; TRIGLYCERIDES 111 mg/dl (0-149)
[2018-09-11 11:39] LABS: ALBUMIN 2.5 g/dl (3.3-4.9); ANION GAP 5 (5-13); BLOOD UREA NITROGEN 11 mg/dl (7-20); CALCIUM 8.5 mg/dl (8.4-10.2); CARBON DIOXIDE 24 mmol/L (21-31); CHLORIDE 110 mmol/L (97-110); GLUCOSE 93 mg/dl (70-220); MAGNESIUM 1.5 mg/dl (1.7-2.5); PHOSPHORUS 3.2 mg/dl (2.5-4.9); POTASSIUM 3.9 mmol/L (3.5-5.1); SODIUM 139 mmol/L (135-144)
[2018-09-11 11:47] LABS: TROPONIN-I < 0.012 ng/ml (0.000-0.120)
[2018-09-11] MEDS: MAGNESIUM SULFATE 2 GM/50 ML 50 ML IVPB (18:09)
[2018-09-11] MEDS: TAMSULOSIN (SR) 0.4 MG CAP PO (21:01)
[2018-09-11] MEDS: traZODone 50 MG TAB PO (21:01)
[2018-09-11] MEDS: ATORVASTATIN 80 MG TAB PO (21:02)
[2018-09-11] MEDS: MONTELUKAST 10 MG TAB PO (21:02)
[2018-09-12] MEDS: morphine 2 MG INJ IV ×4 (00:25→20:30)
[2018-09-12] MEDS: SOD CHLORIDE 0.45% 1,000 ML IV ×3 (00:26→12:17)
[2018-09-12] MEDS: hydrALAzine 20 MG INJ IV ×2 (01:47→15:50)
[2018-09-12] MEDS: PANTOPRAZOLE 40 MG INJ IV ×2 (05:39→17:27)
[2018-09-12] MEDS: INSULIN ASPART [NOVOLOG] 3 ML PEN SC ×4 (08:00→20:30)
[2018-09-12] MEDS: LACTOBACILLUS RHAMNOSUS CAP PO ×3 (08:02→17:27)
[2018-09-12] MEDS: SUCRALFATE (100 MG/ML) 10ML CUP PO ×4 (08:02→20:28)
[2018-09-12] MEDS: METOPROLOL 25 MG TAB PO ×2 (08:02→20:28)
[2018-09-12] MEDS: FINASTERIDE 5 MG TAB PO (08:02)
[2018-09-12] MEDS: COLLAGENASE 5 GM (UD JAR) TOP ×3 (08:03→22:40)
[2018-09-12] MEDS: LISINOPRIL 10 MG TAB PO (08:03)
[2018-09-12 11:11] LABS: ADD MAN DIFF? NO
[2018-09-12 11:13] LABS: BASOPHIL # 0.1 10^3/ul (0.0-0.1); EOSINOPHILS # 0.1 10^3/ul (0.0-0.5); EOSINOPHILS % 1.6 % (0.0-7.0); HEMATOCRIT 29.8 % (42.0-52.0); HEMOGLOBIN 9.6 g/dl (14.0-18.0); LYMPHOCYTES # 1.4 10^3/ul (0.8-2.9); MEAN CORPUSCULAR HEMOGLOBIN 27.7 pg (29.0-33.0); MEAN CORPUSCULAR HGB CONC 32.2 g/dl (32.0-37.0); MEAN CORPUSCULAR VOLUME 86.1 fl (82.0-101.0); MEAN PLATELET VOLUME 9.3 fl (7.4-10.4); MONOCYTE # 0.7 10^3/ul (0.3-0.9); MONOCYTES % 13.2 % (0.0-11.0); NEUTROPHIL # 2.8 10^3/ul (1.6-7.5); NEUTROPHILS % 55.8 % (39.0-77.0); PLATELET COUNT 462 10^3/UL (140-415); RED BLOOD COUNT 3.46 10^6/ul (4.70-6.10); RED CELL DISTRIBUTION WIDTH 16.4 % (11.5-14.5)
[2018-09-12 11:13] LABS: WHITE BLOOD COUNT 5.1 10^3/ul (4.8-10.8)
[2018-09-12] MEDS: TAMSULOSIN (SR) 0.4 MG CAP PO (20:27)
[2018-09-12] MEDS: traZODone 50 MG TAB PO (20:27)
[2018-09-12] MEDS: MONTELUKAST 10 MG TAB PO (20:27)
[2018-09-12] MEDS: ATORVASTATIN 80 MG TAB PO (20:27)
[2018-09-12] MEDS: LISINOPRIL 20 MG TAB PO (20:28)
[2018-09-12] MEDS: BACLOFEN 10 MG TAB PO (20:28)
[2018-09-12] MEDS ORDERED: ACETAMINOPHEN 325 MG TAB PO (21:30)
[2018-09-13] MEDS: SOD CHLORIDE 0.45% 1,000 ML IV ×2 (01:45→13:21)
[2018-09-13] MEDS: PANTOPRAZOLE 40 MG INJ IV (05:42)
[2018-09-13] MEDS: INSULIN ASPART [NOVOLOG] 3 ML PEN SC ×4 (08:00→20:05)
[2018-09-13] MEDS: SUCRALFATE (100 MG/ML) 10ML CUP PO ×4 (08:13→20:03)
[2018-09-13] MEDS: FINASTERIDE 5 MG TAB PO (08:13)
[2018-09-13] MEDS: BACLOFEN 10 MG TAB PO ×3 (08:13→20:04)
[2018-09-13] MEDS: COLLAGENASE 5 GM (UD JAR) TOP ×2 (08:13→20:03)
[2018-09-13] MEDS: LACTOBACILLUS RHAMNOSUS CAP PO ×3 (08:13→17:38)
[2018-09-13] MEDS: LISINOPRIL 20 MG TAB PO ×2 (08:14→20:04)
[2018-09-13] MEDS: METOPROLOL 25 MG TAB PO ×2 (08:14→20:04)
[2018-09-13] MEDS: morphine 2 MG INJ IV ×4 (08:20→21:16)
[2018-09-13 10:50] LABS: ADD MAN DIFF? NO; BASOPHILS % 0.8 % (0.0-2.0); EOSINOPHILS # 0.1 10^3/ul (0.0-0.5); EOSINOPHILS % 1.4 % (0.0-7.0); HEMOGLOBIN 9.8 g/dl (14.0-18.0); LYMPHOCYTES # 1.4 10^3/ul (0.8-2.9); LYMPHOCYTES % 27.7 % (15.0-51.0); MEAN CORPUSCULAR HEMOGLOBIN 27.5 pg (29.0-33.0); MEAN CORPUSCULAR HGB CONC 32.7 g/dl (32.0-37.0); MEAN CORPUSCULAR VOLUME 84.3 fl (82.0-101.0); MEAN PLATELET VOLUME 9.4 fl (7.4-10.4); MONOCYTE # 0.8 10^3/ul (0.3-0.9); MONOCYTES % 15.5 % (0.0-11.0); NEUTROPHIL # 2.8 10^3/ul (1.6-7.5); NEUTROPHILS % 54.2 % (39.0-77.0); PLATELET COUNT 500 10^3/UL (140-415); RED BLOOD COUNT 3.56 10^6/ul (4.70-6.10); RED CELL DISTRIBUTION WIDTH 16.2 % (11.5-14.5)
[2018-09-13 10:50] LABS: WHITE BLOOD COUNT 5.2 10^3/ul (4.8-10.8)
[2018-09-13 11:10] LABS: ALBUMIN 2.2 g/dl (3.3-4.9); ANION GAP 5 (5-13); BLOOD UREA NITROGEN 11 mg/dl (7-20); CALCIUM 7.8 mg/dl (8.4-10.2); CARBON DIOXIDE 24 mmol/L (21-31); CHLORIDE 110 mmol/L (97-110); CREATININE 0.59 mg/dl (0.61-1.24); GLUCOSE 93 mg/dl (70-220); MAGNESIUM 1.1 mg/dl (1.7-2.5); PHOSPHORUS 2.9 mg/dl (2.5-4.9); POTASSIUM 3.4 mmol/L (3.5-5.1); SODIUM 139 mmol/L (135-144)
[2018-09-13] MEDS: REGADENOSON 0.4 MG/5 ML SYG (12:05)
[2018-09-13] MEDS: MAGNESIUM SULFATE 3 GM in DEXTROSE 5% 100 ML IVPB (12:59)
[2018-09-13] MEDS: POTASSIUM CHLORIDE 20 MEQ POWDER FOR ORAL SOLN PO (16:18)
[2018-09-13] MEDS: AMLODIPINE 10 MG TAB PO (16:18)
[2018-09-13] MEDS: PANTOPRAZOLE (EC) 40 MG TAB PO (17:38)
[2018-09-13] MEDS: ATORVASTATIN 80 MG TAB PO (20:04)
[2018-09-13] MEDS: MONTELUKAST 10 MG TAB PO (20:04)
[2018-09-13] MEDS: traZODone 50 MG TAB PO (20:04)
[2018-09-13] MEDS: TAMSULOSIN (SR) 0.4 MG CAP PO (20:04)
[2018-09-14] MEDS: hydrALAzine 20 MG INJ IV (01:52)
[2018-09-14] MEDS: morphine 2 MG INJ IV ×4 (03:48→17:15)
[2018-09-14] MEDS: PANTOPRAZOLE (EC) 40 MG TAB PO ×2 (05:23→17:15)
[2018-09-14] MEDS: SUCRALFATE (100 MG/ML) 10ML CUP PO ×3 (08:00→17:15)
[2018-09-14] MEDS: INSULIN ASPART [NOVOLOG] 3 ML PEN SC ×3 (08:00→17:25)
[2018-09-14] MEDS: FINASTERIDE 5 MG TAB PO (08:00)
[2018-09-14] MEDS: LACTOBACILLUS RHAMNOSUS CAP PO ×3 (08:01→17:15)
[2018-09-14] MEDS: BACLOFEN 10 MG TAB PO ×2 (08:01→13:57)
[2018-09-14] MEDS: LISINOPRIL 20 MG TAB PO (08:01)
[2018-09-14] MEDS: METOPROLOL 25 MG TAB PO (08:02)
[2018-09-14] MEDS: COLLAGENASE 5 GM (UD JAR) TOP (08:02)
[2018-09-14] MEDS: IOHEXOL 300MG/ML 150 ML BTL (08:03)
[2018-09-14 11:08] LABS: ADD MAN DIFF? NO
[2018-09-14 11:11] LABS: WHITE BLOOD COUNT 5.2 10^3/ul (4.8-10.8)
[2018-09-14 11:11] LABS: BASOPHIL # 0.1 10^3/ul (0.0-0.1); EOSINOPHILS # 0.1 10^3/ul (0.0-0.5); EOSINOPHILS % 1.3 % (0.0-7.0); HEMATOCRIT 30.4 % (42.0-52.0); LYMPHOCYTES # 1.3 10^3/ul (0.8-2.9); LYMPHOCYTES % 25.8 % (15.0-51.0); MEAN CORPUSCULAR HEMOGLOBIN 27.3 pg (29.0-33.0); MEAN CORPUSCULAR HGB CONC 32.9 g/dl (32.0-37.0); MEAN CORPUSCULAR VOLUME 83.1 fl (82.0-101.0); MEAN PLATELET VOLUME 9.5 fl (7.4-10.4); MONOCYTE # 0.9 10^3/ul (0.3-0.9); MONOCYTES % 17.3 % (0.0-11.0); NEUTROPHIL # 2.8 10^3/ul (1.6-7.5); NEUTROPHILS % 54.2 % (39.0-77.0); PLATELET COUNT 496 10^3/UL (140-415); RED BLOOD COUNT 3.66 10^6/ul (4.70-6.10); RED CELL DISTRIBUTION WIDTH 15.9 % (11.5-14.5)
[2018-09-14 11:29] LABS: MAGNESIUM 1.2 mg/dl (1.7-2.5)
[2018-09-14 11:30] LABS: ALANINE AMINOTRANSFERASE 34 IU/L (13-69); ALKALINE PHOSPHATASE 57 IU/L (42-121); ANION GAP 6 (5-13); ASPARTATE AMINO TRANSFERASE 33 IU/L (15-46); BLOOD UREA NITROGEN 13 mg/dl (7-20); CALCIUM 7.8 mg/dl (8.4-10.2); CARBON DIOXIDE 24 mmol/L (21-31); CHLORIDE 109 mmol/L (97-110); CREATININE 0.41 mg/dl (0.61-1.24); Estimated GFR > 60 mL/min (>60); GLUCOSE 120 mg/dl (70-220); POTASSIUM 3.4 mmol/L (3.5-5.1); SODIUM 139 mmol/L (135-144)
[2018-09-14 11:31] LABS: ALBUMIN 2.4 g/dl (3.3-4.9); ALBUMIN/GLOBULIN RATIO 0.77; TOTAL PROTEIN 5.5 g/dl (6.1-8.1)
[2018-09-14] MEDS: CLONIDINE 0.1 MG/24 HR PATCH TRANSDERM (13:56)
[2018-09-14] MEDS ORDERED: hydrALAzine 20 MG INJ IV (14:30)
[2018-09-14] MEDS: MAGNESIUM SULFATE 4 GM/100 ML 100 ML IVPB (15:32)
[2018-09-14] MEDS ORDERED: NIFEdipine (XL) 30 MG TAB PO (21:00)
[2018-09-14] MEDS ORDERED: METOPROLOL 50 MG TAB PO (21:00)
[2018-09-15] MEDS ORDERED: MAGNESIUM OXIDE 400 MG TAB PO (09:00)
== END 2018-09-14 21:15 | disposition home or self-care (01) | DRG 377 ==
LOC: E/R 16:07 → 2NE 17:23
PROVIDERS: Internal Medicine
PROC: 30233N1 Transfusion of Nonautologous Red Blood Cells into Peripheral Vein, Percutaneous Approach (ICD-10-PCS; principal; 2018-09-07)
DX: K25.4 Chronic or unspecified gastric ulcer with hemorrhage (principal); L89.153 Pressure ulcer of sacral region, stage 3; D62 Acute posthemorrhagic anemia; E78.5 Hyperlipidemia, unspecified; F17.200 Nicotine dependence, unspecified, uncomplicated; E11.9 Type 2 diabetes mellitus without complications; I10 Essential (primary) hypertension; J44.9 Chronic obstructive pulmonary disease, unspecified; N40.0 Benign prostatic hyperplasia without lower urinary tract symptoms; R94.31 Abnormal electrocardiogram [ECG] [EKG]; R19.7 Diarrhea, unspecified; Z91.14 Patient's other noncompliance with medication regimen; Z86.73 Personal history of transient ischemic attack (TIA), and cerebral infarction without residual deficits; Z79.02 Long term (current) use of antithrombotics/antiplatelets
CPT/HCPCS: 36430; 74240; 78452; 80053; 80061; 80069; 82270; 82553; 82728; 82941; 82962; 83036; 83540; 83735; 84484; 85025; 85610; 85730; 86850; 86900; 86901; 86920; 87075; 87081; 93005; 93017; 93306; 99285-25